=== PATIENT | female | born 1930 | race Caucasian/White ===

== ENCOUNTER 2016-08-08 13:59 | Inpatient (IN) | payer MEDICARE ==
[~2016-08-08] VITALS: Ht 157.5 cm; Wt 53.3 kg
--- NOTE | 2016-08-08 14:15 | PD ---
HPI Chief Complaint: Injury Time Seen by Provider: 14:14 Travel History International Travel<30 days: No Contact w/Intl Traveler<30days: No Traveled to known affect area: No History of Present Illness HPI 85 year old with history of dementia presents by EVAC for evaluation of dislocated R 4th digit. Per EVAC report, pt attempted to get out of her chair and fell over when her daughter left the room. EVAC reports the daughter says the pt has had frequent falls similar to this because she forgets she cannot ambulate as well as she used to. Unknown if head was struck. Pt did sustain a skin tear to the R elbow and L knee. She has dementia and does not recall the event. She cannot provide me with any history. Pt has not been here before. I do not have a contact number to get ahold of family for better understanding of the situation. PFSH Past Medical History Medical History: Unable to Obtain Social History Alcohol Use: No Tobacco Use: No Substance Use: No Allergies-Medications (Allergen,Severity, Reaction): Coded Allergies: Adhesives (Verified Allergy, Severe, skin tears, 08/08/16) skin is extremely fragile, will tear at the slightest stress Review of Systems ROS Limitations: Altered Mental Status Physical Exam Exam Limitations: Altered Mental Status Narrative GENERAL: Awake, well nourished female pt in no acute distress SKIN: Warm and dry. Multiple skin tears on extremities in different stages of healing. HEAD: Atraumatic. Normocephalic. EYES: Pupils equal and round. No scleral icterus. No injection or drainage. ENT: No nasal bleeding or discharge. Mucous membranes pink and moist. NECK: Trachea midline. No JVD. CARDIOVASCULAR: Regular rate and rhythm. RESPIRATORY: No accessory muscle use. Clear to auscultation. Breath sounds equal bilaterally. GASTROINTESTINAL: Abdomen soft, non-tender, nondistended. Hepatic and splenic margins not palpable. MUSCULOSKELETAL: Extremities without clubbing, cyanosis, or edema. Deformity of R 4th digit at the PIP. Cap refill WNL. NEUROLOGICAL: Awake and alert. Answers yes/no to simple questions intermittently. Not oriented to self, place, or time. No obvious cranial nerve deficits. Motor grossly within normal limits. Five out of 5 muscle strength in the arms and legs. Normal speech. Data Data Last Documented VS Vital Signs Date Time Temp Pulse Resp B/P Pulse Ox O2 Delivery O2 Flow Rate FiO2 08/08/16 15:00 86 22 172/90 98 Orders Finger ([id number]) (08/08/16 ) Wound Care (08/08/16 14:12) Splint Or Brace Apply/Monitor (08/08/16 14:12) Finger Splint (08/08/16 ) Ct Brain W/O Iv Contrast(Rout) (08/08/16 ) Iv Access Insert/Monitor (08/08/16 16:08) Complete Blood Count With Diff (08/08/16 16:08) Basic Metabolic Panel (Bmp) (08/08/16 16:08) Urinalysis - C+S If Indicated (08/08/16 16:08) Cath For Specimen (08/08/16 16:08) Sodium Chlor 0.9% 1000 Ml Inj (Ns 1000 M (08/08/16 17:15) Consult Neurosurgery (08/08/16 ) Nicardipine Inj (Cardene Inj) (08/08/16 17:45) Labs Laboratory Tests Test 08/08/16 16:40 White Blood Count 15.0 TH/MM3 Red Blood Count 4.59 MIL/MM3 Hemoglobin 14.1 GM/DL Hematocrit 40.1 % Mean Corpuscular Volume 87.4 FL Mean Corpuscular Hemoglobin 30.8 PG Mean Corpuscular Hemoglobin 35.2 % Concent Red Cell Distribution Width 14.1 % Platelet Count 264 TH/MM3 Mean Platelet Volume 8.3 FL Neutrophils (%) (Auto) 83.2 % Lymphocytes (%) (Auto) 8.4 % Monocytes (%) (Auto) 7.2 % Eosinophils (%) (Auto) 0.8 % Basophils (%) (Auto) 0.4 % Neutrophils # (Auto) 12.5 TH/MM3 Lymphocytes # (Auto) 1.3 TH/MM3 Monocytes # (Auto) 1.1 TH/MM3 Eosinophils # (Auto) 0.1 TH/MM3 Basophils # (Auto) 0.1 TH/MM3 CBC Comment DIFF FINAL Differential Comment Sodium Level 133 MEQ/L Potassium Level 3.7 MEQ/L Chloride Level 97 MEQ/L Carbon Dioxide Level 27.3 MEQ/L Anion Gap 9 MEQ/L Blood Urea Nitrogen 13 MG/DL Creatinine 0.57 MG/DL Estimat Glomerular Filtration 100 ML/MIN Rate Random Glucose 114 MG/DL Calcium Level 8.4 MG/DL MDM Medical Decision Making Medical Screen Exam Complete: Yes Emergency Medical Condition: Yes Medical Record Reviewed: Yes Differential Diagnosis finger dislocation vs fracture vs sprain dementia versus UTI versus electrolyte abnormality versus ICH Narrative Course 85 year old female presents to ED for evaluation of dislocated R 4th PIP following a fall from her chair per EVAC report. Pt offers no history due to advanced dementia and I have no family contact, however, EVAC reported pt does reside with her daughter. Work up is initiated in ED ambulance hallway. Finger is reduced without difficulty or complication during assessment without digital block or effort on my part. Digit is neurovascularly intact. I have called several times to ED waiting area in hopes to locate family, I have not been able to. I will move forward with complete workup as I cannot obtain adequate history. Last Impressions Finger X-Ray 08/08/16 0000 Signed Impressions: Service Date/Time: Monday, August 08, 2016 14:37 - CONCLUSION: 1. No acute fracture or dislocation. 2. 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 3. Diffuse osteopenia. Mustapha Riddle MD Laboratory Tests Test 08/08/16 16:40 White Blood Count 15.0 TH/MM3 Red Blood Count 4.59 MIL/MM3 Hemoglobin 14.1 GM/DL Hematocrit 40.1 % Mean Corpuscular Volume 87.4 FL Mean Corpuscular Hemoglobin 30.8 PG Mean Corpuscular Hemoglobin 35.2 % Concent Red Cell Distribution Width 14.1 % Platelet Count 264 TH/MM3 Mean Platelet Volume 8.3 FL Neutrophils (%) (Auto) 83.2 % Lymphocytes (%) (Auto) 8.4 % Monocytes (%) (Auto) 7.2 % Eosinophils (%) (Auto) 0.8 % Basophils (%) (Auto) 0.4 % Neutrophils # (Auto) 12.5 TH/MM3 Lymphocytes # (Auto) 1.3 TH/MM3 Monocytes # (Auto) 1.1 TH/MM3 Eosinophils # (Auto) 0.1 TH/MM3 Basophils # (Auto) 0.1 TH/MM3 CBC Comment DIFF FINAL Differential Comment Sodium Level 133 MEQ/L Potassium Level 3.7 MEQ/L Chloride Level 97 MEQ/L Carbon Dioxide Level 27.3 MEQ/L Anion Gap 9 MEQ/L Blood Urea Nitrogen 13 MG/DL Creatinine 0.57 MG/DL Estimat Glomerular Filtration 100 ML/MIN Rate Random Glucose 114 MG/DL Calcium Level 8.4 MG/DL UA is not yet collected. Ct of brain shows acute SAH. I discussed the pt with Dr. Xavier, my attending physician who has also assessed the pt. I spoke with Dr. Chris, neurosurgery bone cooking operator. She will consult on the pt. I spoke with Dr. Zhang. Pt will be admitted to the medical staff. Pt will be moved to a medical bed and placed on a cardene gtt for BP control. 2000 family is at bedside. They're very frustrated, stating they have been here all day and have been told by security repeatedly they could not come to the back or update them. I apologized as I had spoken to nursing staff multiple times since the pts arrival and they were unable to find family in the waiting room. Family informed me that the pt has been ambulatory until today. She was running down the hallway this morning when she fell. That is when she struck her head on the ground. She was then assisted up and to a chair by her daughter. The daughter says she was out in the sunroom when she heard a boom and her mother had fallen on the floor. They noticed the finger deformity and called 911 She has been unable to ambulate since the fall. Xray imaging of the pelvis has been ordered. 2129 Xray imaging shows RIGHT femoral neck fracture. I spoke with GUADALUPE Gauthier. Pt is NPO after MN for intervention tomorrow. I updated the family and Dr. Rose. Diagnosis Primary Impression: Traumatic subarachnoid hemorrhage Qualified Code: S06.6X9A - Traumatic subarachnoid hemorrhage, with loss of consciousness of unspecified duration, initial encounter Additional Impressions: Skin tear of elbow without complication Qualified Code: S51.011A - Skin tear of elbow without complication, right, initial encounter Dislocation of finger, interphalangeal joint, right, closed Qualified Code: S63.279A - Dislocation of finger, interphalangeal joint, right , closed, initial encounter Dementia Qualified Code: F03.90 - Dementia without behavioral disturbance, unspecified dementia type Disposition: 01 DISCHARGE HOME Condition: Stable JeffriesFreda couch COLLEEN Aug 08, 2016 14:15
--- NOTE | 2016-08-08 14:56 | RADRPT ---
EXAM DATE/TIME: 08/08/2016 14:37 [facility] COMPARISON: No previous studies available for comparison. INDICATIONS : Post reduction, fourth right digit. MEDICAL HISTORY : Unobtainable. SURGICAL HISTORY : Unobtainable. ENCOUNTER: Initial ACUITY: 1 day PAIN SCORE: Non-responsive. LOCATION: Right fourth digit. FINDINGS: There is no acute fracture or dislocation of the right fourth digit. Diffuse osteopenia of the bones of the right hand is noted. Osteoarthritis is noted involving the first interphalangeal joint. CONCLUSION: 1. No acute fracture or dislocation. 2. 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 3. Diffuse osteopenia. Mustapha Riddle MD on August 08, 2016 at 14:47 Board Certified Radiologist. This report was verified electronically.
[2016-08-08 15:00] VITALS: BP 172/90; PULSE 86; RESP 22; O2SAT 98
[2016-08-08 17:00] LABS: AUTOMATED NEUTROPHIL # 12.5 TH/MM3 (1.8-7.7); BASOPHIL # 0.1 TH/MM3 (0-0.2); BASOPHIL % 0.4 % (0.0-2.0); EOSINOPHIL # 0.1 TH/MM3 (0-0.4); EOSINOPHIL % 0.8 % (0.0-4.0); HEMATOCRIT 40.1 % (35.0-46.0); HEMO FLAGS DIFF FINAL; LYMPH % 8.4 % (9.0-44.0); LYMPHOCYTE # 1.3 TH/MM3 (1.0-4.8); MEAN CELL VOLUME 87.4 FL (80.0-100.0); MEAN CORPUSCULAR HEMOGLOBIN 30.8 PG (27.0-34.0); MEAN CORPUSCULAR HGB CONC 35.2 % (32.0-36.0); MONO % 7.2 % (0.0-8.0); NEUT % 83.2 % (16.0-70.0); PLATELET COUNT 264 TH/MM3 (150-450); RED BLOOD COUNT 4.59 MIL/MM3 (4.00-5.30); RED CELL DISTRIBUTION WIDTH 14.1 % (11.6-17.2)
[2016-08-08] MEDS ORDERED: SODIUM CHLOR 0.9% 1000 ML INJ 1,000 ML IV ONE (17:15)
--- NOTE | 2016-08-08 17:21 | RADRPT ---
EXAM DATE/TIME: 08/08/2016 17:09 [facility] COMPARISON: No previous studies available for comparison. INDICATIONS : Altered mental status; fall. RADIATION DOSE: 34.15 CTDIvol (mGy) MEDICAL HISTORY : Non-responsive. SURGICAL HISTORY : Non-responsive. ENCOUNTER: Initial ACUITY: 1 day PAIN SCALE: Non-responsive LOCATION: cranial TECHNIQUE: Multiple contiguous axial images were obtained of the head. Using automated exposure control and adj ustment of the mA and/or kV according to patient size, radiation dose was kept as low as reasonably a chievable to obtain optimal diagnostic quality images. FINDINGS: CEREBRUM: Minimal acute subarachnoid hemorrhage is noted within the right high parietal sulci. No midline shift or ventriculomegaly is noted. No acute infarct is noted. There is no acute subdural or epidural robert luis a. POSTERIOR FOSSA: The cerebellum and brainstem are intact. The 4th ventricle is midline. The cerebellopontine angle i s unremarkable. EXTRACRANIAL: The visualized portion of the orbits is intact. SKULL: The calvaria is intact. No evidence of skull fracture. CONCLUSION: Minimal acute subarachnoid hemorrhage within the right high parietal sulci. Mustapha Riddle MD on August 08, 2016 at 17:17 Board Certified Radiologist. This report was verified electronically.
[2016-08-08 17:25] LABS: BICARBONATE 27.3 MEQ/L (21.0-32.0); POTASSIUM 3.7 MEQ/L (3.5-5.1)
[2016-08-08 18:00] VITALS: BP 181/100; PULSE 127; RESP 16; O2SAT 95
[2016-08-08] MEDS ORDERED: SODIUM CHLORIDE 0.9% FLUSH 5 ML FLUSH IVF PRN (18:00)
[2016-08-08] MEDS ORDERED: ACETAMINOPHEN 325 MG TAB PO PRN (18:00)
[2016-08-08] MEDS ORDERED: DOCUSATE SODIUM 100 MG/10 ML UDC NG PRN (18:00)
[2016-08-08 18:08] LABS: BLOOD, URINE NEG (NEG); COMMENT (UR) CATH-CULT NOT IND; CULTURE IF INDICATED CATH CULTURE NOT IND; GLUCOSE,URINE NEG (NEG); KETONE, URINE NEG (NEG); NITRITE,URINE NEG (NEG); SQUAMOUS EPITHELIAL CELL URINE <1 /hpf (0-5); URINE COLOR LIGHT-YELLOW (YELLW/STRAW)
--- NOTE | 2016-08-08 18:14 | PD.CONS ---
HPI Service Neurosurgery Consult Requested By ED Reason for Consult Intracranial bleed Primary Care Physician not known History of Present Illness 85 year old fell at home and was found in the ED to have a small SAH in the right frontal sulci with no mass effect. She has dementia and a history of increased falling in the recent past. She lives with her daughter who sent her to the ED after a fall today. The daughter is not present and the patient's history and medications are not available. Review of Systems ROS Limitations: Hearing Impaired, Poor Historian Constitutional: DENIES: Diaphoretic episodes, Fatigue, Fever, Weight gain, Weight loss, Chills, Dizziness, Change in appetite, Night Sweats Endocrine: DENIES: Abnorml menstrual pattern, Heat/cold intolerance, Polydipsia , Polyuria, Polyphagia Eyes: DENIES: Blurred vision, Diplopia, Eye inflammation, Eye pain, Vision loss , Photosensitivity, Double Vision Respiratory: DENIES: Apneas, Cough, Snoring, Wheezing, Hemoptysis, Sputum production, Shortness of breath Cardiovascular: COMPLAINS OF: Palpitations Gastrointestinal: DENIES: Abdominal pain, Black stools, Bloody stools, Constipation, Diarrhea, Nausea, Vomiting, Difficulty Swallowing, Anorexia Genitourinary: DENIES: Abnormal vaginal bleeding, Dysmenorrhea, Dyspareunia, Sexual dysfunction, Urinary frequency, Urinary incontinence, Urgency, Hematuria , Dysuria, Nocturia, Vaginal discharge Musculoskeletal: DENIES: Joint pain, Muscle aches, Stiffness, Joint Swelling, Back pain, Neck pain Integumentary: DENIES: Abnormal pigmentation, Pruritus, Rash, Nail changes, Breast masses, Breast skin changes, Nipple discharge Hematologic/lymphatic: COMPLAINS OF: Bruising Immunologic/allergic: DENIES: Eczema, Urticaria Neurologic: COMPLAINS OF: Tremor, Poor Balance Psychiatric: COMPLAINS OF: Confusion Past Family Social History Allergies: Coded Allergies: UNOBTAINABLE (Unverified , 08/08/16) Past Medical History not known Family History not known Social History lives with daughter. Physical Exam Vital Signs Vital Signs Date Time Temp Pulse Resp B/P Pulse Ox O2 Delivery O2 Flow Rate FiO2 08/08/16 15:00 86 22 172/90 98 Physical Exam Awake pleasant lady who looks younger than her stated age, Head atraumatic with no racoon or bourgeois signs but she has multiple skin abrasions and bruising in the elbows, lower legs. Pupils post surgical 2mm equal, eye movements are grossly full, she is unable to follow simple or complex commands but is able to say simple words. She has no pain with palpation and motion of the neck and back Abrasions are present on the buttock and right hip areas. Tone is increased throughout but she has no delgado or babinski signs. Motor use of all extremities is antigravity and purposeful, sensation is present in all extremities. Lungs are clear with no wheezing or rhonchi, Abdomen is soft, non tender, Heart rate is irregular. Laboratory Laboratory Tests Test 08/08/16 16:40 White Blood Count 15.0 Red Blood Count 4.59 Hemoglobin 14.1 Hematocrit 40.1 Mean Corpuscular Volume 87.4 Mean Corpuscular Hemoglobin 30.8 Mean Corpuscular Hemoglobin 35.2 Concent Red Cell Distribution Width 14.1 Platelet Count 264 Mean Platelet Volume 8.3 Neutrophils (%) (Auto) 83.2 Lymphocytes (%) (Auto) 8.4 Monocytes (%) (Auto) 7.2 Eosinophils (%) (Auto) 0.8 Basophils (%) (Auto) 0.4 Neutrophils # (Auto) 12.5 Lymphocytes # (Auto) 1.3 Monocytes # (Auto) 1.1 Eosinophils # (Auto) 0.1 Basophils # (Auto) 0.1 CBC Comment DIFF FINAL Differential Comment Sodium Level 133 Potassium Level 3.7 Chloride Level 97 Carbon Dioxide Level 27.3 Anion Gap 9 Blood Urea Nitrogen 13 Creatinine 0.57 Estimat Glomerular Filtration 100 Rate Random Glucose 114 Calcium Level 8.4 Result Diagram: 08/08/16 1640 08/08/16 1640 Imaging Last Impressions Finger X-Ray 08/08/16 0000 Signed Impressions: Service Date/Time: Monday, August 08, 2016 14:37 - CONCLUSION: 1. No acute fracture or dislocation. 2. 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 3. Diffuse osteopenia. Mustapha Riddle MD Head CT shows trace SAH in the sulci of the frontal lobe on the right with no mass effect. No fractures are seen Assessment and Plan Diagnosis: (1) Dementia (2) Traumatic subarachnoid hemorrhage Plan: Follow up head CT and neuro checks ordered. (3) Hyponatremia Plan: Mild, will provide sodium replacement with IVF and avoid hypovolemia (4) Atrial fibrillation Plan: Anticoagulation will be on hold until the bleed has resolved (5) HTN (hypertension) Plan: will control with prn medications until home medications are available (6) Balance disorder Plan: OT/PT to evaluate the safety of gait prior to home discharge Problem Qualifiers (1) Dementia: Qualified Code: F03.90 - Dementia without behavioral disturbance, unspecified dementia type (2) Traumatic subarachnoid hemorrhage: Qualified Code: S06.6X9A - Traumatic subarachnoid hemorrhage, with loss of consciousness of unspecified duration, initial encounter (3) Atrial fibrillation: Qualified Code: I48.91 - Atrial fibrillation, unspecified type (4) HTN (hypertension): Qualified Code: I15.9 - Secondary hypertension Johnson Chris Aug 08, 2016 18:14
--- NOTE | 2016-08-08 18:18 | PD ---
Physical Exam Narrative GENERAL: Well-nourished, well-developed patient. SKIN: Warm and dry. HEAD: Normocephalic EYES: No injection or drainage. Pupils equal ENT: No nasal drainage noted. NECK: Supple, trachea midline. CARDIOVASCULAR: Regular rate and rhythm RESPIRATORY: No increased effort. No accessory muscle use. NEUROLOGICAL: Awake. Moves all extremities. Normal speech. Data Data Last Documented VS Vital Signs Date Time Temp Pulse Resp B/P Pulse Ox O2 Delivery O2 Flow Rate FiO2 08/08/16 15:00 86 22 172/90 98 Orders Finger ([id number]) (08/08/16 ) Wound Care (08/08/16 14:12) Splint Or Brace Apply/Monitor (08/08/16 14:12) Finger Splint (08/08/16 ) Ct Brain W/O Iv Contrast(Rout) (08/08/16 ) Iv Access Insert/Monitor (08/08/16 16:08) Complete Blood Count With Diff (08/08/16 16:08) Basic Metabolic Panel (Bmp) (08/08/16 16:08) Urinalysis - C+S If Indicated (08/08/16 16:08) Cath For Specimen (08/08/16 16:08) Sodium Chlor 0.9% 1000 Ml Inj (Ns 1000 M (08/08/16 17:15) Consult Neurosurgery (08/08/16 ) Nicardipine Inj (Cardene Inj) (08/08/16 17:45) Labs Laboratory Tests Test 08/08/16 16:40 White Blood Count 15.0 TH/MM3 Red Blood Count 4.59 MIL/MM3 Hemoglobin 14.1 GM/DL Hematocrit 40.1 % Mean Corpuscular Volume 87.4 FL Mean Corpuscular Hemoglobin 30.8 PG Mean Corpuscular Hemoglobin 35.2 % Concent Red Cell Distribution Width 14.1 % Platelet Count 264 TH/MM3 Mean Platelet Volume 8.3 FL Neutrophils (%) (Auto) 83.2 % Lymphocytes (%) (Auto) 8.4 % Monocytes (%) (Auto) 7.2 % Eosinophils (%) (Auto) 0.8 % Basophils (%) (Auto) 0.4 % Neutrophils # (Auto) 12.5 TH/MM3 Lymphocytes # (Auto) 1.3 TH/MM3 Monocytes # (Auto) 1.1 TH/MM3 Eosinophils # (Auto) 0.1 TH/MM3 Basophils # (Auto) 0.1 TH/MM3 CBC Comment DIFF FINAL Differential Comment Sodium Level 133 MEQ/L Potassium Level 3.7 MEQ/L Chloride Level 97 MEQ/L Carbon Dioxide Level 27.3 MEQ/L Anion Gap 9 MEQ/L Blood Urea Nitrogen 13 MG/DL Creatinine 0.57 MG/DL Estimat Glomerular Filtration 100 ML/MIN Rate Random Glucose 114 MG/DL Calcium Level 8.4 MG/DL [facility] Supervised Visit with MICK: Yes Interpretation(s) CBC & BMP Diagram 08/08/16 16:40 Last 24 hours Impressions Finger X-Ray 08/08/16 0000 Signed Impressions: Service Date/Time: Monday, August 08, 2016 14:37 - CONCLUSION: 1. No acute fracture or dislocation. 2. 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 3. Diffuse osteopenia. Mustapha Riddle MD CT brain with small amount of subarachnoid hemorrhage noted Narrative Course I, Dr. vila, have reviewed the advance practice practitioner's documentation and am in agreement, met with the patient face to face, made the diagnosis, and the medical decision making was done by me. *My assessment and Findings: 85-year-old female presents with finger dislocation with unknown mechanism. Workup added on to rule out how she fell and showed subarachnoid hemorrhage. Cardene will be placed for blood pressure control and she will be monitored in the unit. I helped coordinate transferring into a medical room to be monitored closely and have blood pressure under better control Critical Care Narrative Aggregate critical care time was 31 minutes. Time to perform other separately billable procedures was not included in the critical care time. My time did not include minutes spent treating any other patients simultaneously or on activities that did not directly contribute to the patient's treatment. The services I provided to this patient were to treat and/or prevent clinically significant deterioration that could result in: Hypertensive emergency, worsening bleeding I provided critical care services requiring my management, as noted below: Chart data review, documentation time, medication orders and management, vital sign assessments/reviewing monitor data, ordering and reviewing lab tests, ordering and interpreting/reviewing x-rays and diagnostic studies, care of the patient and discussion of the patient with the admitting physicians. Physician Communication Physician Communication dr huertas agrees to admit, neurosurgery saw patient in hallway Diagnosis Primary Impression: Traumatic subarachnoid hemorrhage Additional Impressions: Skin tear of elbow without complication Qualified Code: S51.011A - Skin tear of elbow without complication, right, initial encounter Dislocation of finger, interphalangeal joint, right, closed Qualified Code: S63.279A - Dislocation of finger, interphalangeal joint, right , closed, initial encounter Admitting Information Admitting Physician Requests: Admit Lashon Vila MD Aug 08, 2016 18:18
[2016-08-08] MEDS: niCARdipine INJ 25 MG in SODIUM CHLOR 0.9% 250 ML INJ 250 ML IV SCH (18:23)
[2016-08-08] MEDS ORDERED: NALOXONE HCL 0.4 MG/ML AMP IV PRN (18:30)
[2016-08-08] MEDS ORDERED: SODIUM CHLORIDE 0.9% FLUSH 5 ML FLUSH FLUSH PRN (18:30)
[2016-08-08] MEDS ORDERED: ONDANSETRON HCL 4 MG/2 ML VIAL IVP PRN (18:30)
[2016-08-08 18:32] VITALS: BP 172/77; PULSE 136; RESP 18; O2SAT 95
[2016-08-08] MEDS ORDERED: PILL SPLITTER OTHER PRN (18:45)
[2016-08-08 19:01] VITALS: BP 145/84; PULSE 125; RESP 18; O2SAT 95
[2016-08-08] MEDS: SODIUM CHLOR 0.9% 1000 ML INJ 1,000 ML IV SCH (20:09)
[2016-08-08 20:35] LABS: PROTHROMBIN TIME - PATIENT 11.4 SEC (9.8-11.6)
[2016-08-08] MEDS ORDERED: SODIUM CHLORIDE 0.9% FLUSH 5 ML FLUSH IVF SCH (21:00)
[2016-08-08] MEDS: SODIUM CHLORIDE 0.9% FLUSH 5 ML FLUSH FLUSH SCH (21:00)
[2016-08-08] MEDS: METOPROLOL TARTRATE 25 MG TAB PO SCH (21:00)
--- NOTE | 2016-08-08 21:22 | RADRPT ---
EXAM DATE/TIME: 08/08/2016 20:34 [facility] COMPARISON: No previous studies available for comparison. INDICATIONS : Fall. MEDICAL HISTORY : None. SURGICAL HISTORY : None. ENCOUNTER: Initial ACUITY: 1 day PAIN SCORE: 9/10 LOCATION: Bilateral pelvis FINDINGS: A single frontal view of the pelvis demonstrates right femoral neck fracture with superior migration of the distal right femur. Mild degenerative changes of both hips. The bony pelvic ring is intact. Bony mineralization is normal. The soft tissues are intact. CONCLUSION: 1. Right femoral neck fracture with superior migration of the distal shaft. Yon Bailey MD on August 08, 2016 at 21:20 Board Certified Radiologist. This report was verified electronically.
--- NOTE | 2016-08-08 21:22 | RADRPT ---
EXAM DATE/TIME: 08/08/2016 20:35 [facility] COMPARISON: No previous studies available for comparison. INDICATIONS : Fall. MEDICAL HISTORY : None. SURGICAL HISTORY : None. ENCOUNTER: Initial ACUITY: 1 day PAIN SCORE: 9/10 LOCATION: Left femur FINDINGS: Two view examination of the left femur demonstrates no evidence of fracture or dislocation. Bony min eralization is normal. The soft tissue structures are intact. CONCLUSION: No acute fracture. Yon Bailey MD on August 08, 2016 at 21:21 Board Certified Radiologist. This report was verified electronically.
--- NOTE | 2016-08-08 21:23 | RADRPT ---
EXAM DATE/TIME: 08/08/2016 20:35 [facility] COMPARISON: No previous studies available for comparison. INDICATIONS : Chest pain. MEDICAL HISTORY : None. SURGICAL HISTORY : None. ENCOUNTER: Initial ACUITY: 1 day PAIN SCORE: 9/10 LOCATION: Bilateral chest FINDINGS: A single view of the chest demonstrates scattered interstitial densities without evidence of mass, in filtrate or effusion. The cardiomediastinal contours are unremarkable. Osseous structures are intac t. A left clavicle fracture. CONCLUSION: Scattered interstitial densities likely chronic interstitial lung disease although acute component ca nnot be excluded given lack of prior studies. Yon Bailey MD on August 08, 2016 at 21:21 Board Certified Radiologist. This report was verified electronically.
--- NOTE | 2016-08-08 21:24 | RADRPT ---
EXAM DATE/TIME: 08/08/2016 20:38 [facility] COMPARISON: No previous studies available for comparison. INDICATIONS : Fall. MEDICAL HISTORY : None. SURGICAL HISTORY : None. ENCOUNTER: Initial ACUITY: 1 day PAIN SCORE: 9/10 LOCATION: Right femur FINDINGS: Two view examination of the right femur demonstrates a displaced right femoral neck fracture. There i s superior migration of the distal shaft. Vascular calcifications. Soft tissue swelling. CONCLUSION: Right femoral neck fracture. Yon Bailey MD on August 08, 2016 at 21:22 Board Certified Radiologist. This report was verified electronically.
[2016-08-08 21:42] VITALS: BP 110/63; PULSE 119; RESP 18; O2SAT 97
--- NOTE | 2016-08-08 22:02 | HHI.HP ---
[facility] Service [facility] Primary Care Physician Unknown Admission Diagnosis SAH; dementia; R4th finger PIP dislocation/reduction Diagnoses: (1) Fracture of femoral neck, right, closed (2) Traumatic subarachnoid hemorrhage (3) Dislocation of finger, interphalangeal joint, right, closed (4) Skin tear of elbow without complication (5) Dementia Chief Complaint: finger deformity following fall Travel History International Travel<30 Days: No Contact w/Intl Traveler <30 Da: No Traveled to Known Affected Are: No History of Present Illness Ms. Jimenez is an 85 -year-old female with a history of dementia who was attempting to get out of her chair when daughter was out of the room and fell over her dislocating her right fourth digit. The patient has had frequent falls because she forgets that she is unable to ambulate as well as she used to. Finger fracture was manually reduced in ER. CT of brain showed acute minimal right high parietal sulci hemorrhage with no mass effect and the patient is admitted for medical management. UA within normal parameters. WBC elevated 15.0 with neutrophilia. Hyponatremia with sodium 133 on admission. The patient had a pelvis and right femur x-ray that showed right femoral neck fracture. Dr. Peters was consulted. Patient will be NPO and will have ORIF in a.m. The patient was seen in the ER with her daughter and son-in-law at bedside. The patient is a poor historian and replies "no" to all questions. The patient's daughter says the patient ran down jacobo to find her and fell while running; head "bounced" off the floor. The patient's legs gave out when her daughter tried to transfer to a chair after the fall. She got up in interim and got finger caught between chairs with severe and obvious resulting deformity. The family is here from [place] (they have two homes; one in [place] and one in [place] - usually here until October). The daughter states the patient has severe insomnia - sleeps about 1 - 2 hours per night and takes Ativan 0.25 mg qhs, citalopram 5mg qhs to promote sleep but it only helps her sleep the 1-2 hours. If she takes higher doses of Ativan, she 's lethargic the next day. The patient doesn't complain about anything and has mostly been pretty healthy other than the dementia; no diarrhea, no n/v; good appetite but has lost some weight despite adequate p.o. intake. Daughter denies that the patient has a history of diabetes, CT, CHF, atrial fibrillation, liver or kidney, DVT, PE, CVA, seizures, cancer, or thyroid problems. Functional status: Toilets self independently - occasional incontinence - patient cleans herself independently if this occurs; eats with set-up assistance; regular consistency food; ambulates independently. Review of Systems ROS Limitations: Poor Historian Other all systems were reviewed; pertinent findings are noted in HPI and otherwise systems are negative . Past Family Social History Past Medical History Hypertension Dementia Anxiety Insomnia Past Surgical History skin lesions removed ingrown toenail removal no major surgeries . Reported Medications Lorazepam 0.25 mg qhs Citalopram 5 mg qhs Tylenol PM one tablet PRN insomnia Lisinopril 10 mg qday Keflex 250 mg once daily for UTI prophylaxis . Allergies: Coded Allergies: Adhesives (Verified Allergy, Severe, skin tears, 08/08/16) skin is extremely fragile, will tear at the slightest stress Active Ordered Medications Current Medications Sodium Chloride 1,000 ml @ 999 mls/hr BOLUS ONCE IV Last administered on 08/08 18:27; Start 08/08/16 at 17:15; Stop 08/08/16 at 18:15; Status DC Nicardipine HCl 25 mg/Sodium Chloride 260 ml @ 0 mls/hr TITRATE IV Last administered on 08/08/16 18:23; Start 08/08/16 at 17:45 Sodium Chloride (NS 1000 ml Inj) 1,000 ml @ 70 mls/hr [id number] IV Last administered on 08/08/16 20:09; Start 08/08/16 at 18:00 IV Flush (NS Flush) 2 ml UNSCH PRN IVF FLUSH AFTER USING IV ACCESS; Start 08/08 at 18:00; Stop 08/08/16 at 18:34; Status DC IV Flush (NS Flush) 2 ml BID IVF ; Start 08/08/16 at 21:00; Stop 08/08/16 at 21: 00; Status DC Clonidine (Catapres) 0.1 mg Q6H PRN PO to keep SBP between 140-160; Start 08/08 at 18:00 Acetaminophen (Tylenol) 650 mg Q4H PRN PO PAIN SCALE 1 TO 10; Start 08/08/16 at 18:00 Docusate Sodium (Colace Liq) 100 mg BID PRN NG CONSTIPATION; Start 08/08/16 at 18:00 Magnesium Hydroxide (Milk Of Magnesia Liq) 30 ml DAILY PRN PO Severe Constipation; Start 08/08/16 at 18:00 Metoprolol Tartrate (Lopressor) 12.5 mg Q12HR PO ; Start 08/08/16 at 21:00 IV Flush (NS Flush) 2 ml UNSCH PRN FLUSH FLUSH AFTER USING IV ACCESS; Start 06/14 at 18:30 IV Flush (NS Flush) 2 ml BID FLUSH ; Start 08/08/16 at 21:00 Ondansetron HCl (Zofran Inj) 4 mg Q6H PRN IVP NAUSEA OR VOMITING; Start at 18:30 Naloxone HCl (Narcan Inj) 0.4 mg UNSCH PRN IV SEE LABEL COMMENTS; Start at 18:30 Miscellaneous (Pill Splitter) 1 ea UNSCH PRN OTHER SEE LABEL COMMENTS; Start at 18:45 . Family History Sister with respiratory disorder No family history of anesthesia problems . Social History Tobacco: smoked more than 30 years ago Alcohol: no history of abuse Lives with daughter and son-in-law; has two sons . Physical Exam Vital Signs Vital Signs Date Time Temp Pulse Resp B/P Pulse Ox O2 Delivery O2 Flow Rate FiO2 08/08/16 19:01 125 18 145/84 95 Room Air 08/08/16 18:32 136 18 172/77 95 Room Air 08/08/16 18:00 127 16 181/100 95 Room Air 08/08/16 15:00 86 22 172/90 98 Physical Exam GENERAL: This is a well-nourished, well-developed patient, in no apparent distress. SKIN: No rashes, ecchymoses. Cool and dry. Very large skin tear to near right elbow; no active bleeding. Right hip with some bruising but fracture is closed. Bruising on left marcial area. HEAD: Atraumatic. Normocephalic. EYES: No scleral icterus. No injection or drainage. ENT: Nose without bleeding, purulent drainage. NECK: Trachea midline. No JVD or lymphadenopathy. CARDIOVASCULAR: Regular rate and rhythm without murmurs, gallops, or rubs. RESPIRATORY: Clear to auscultation. Breath sounds equal bilaterally. No wheezes , rales, or rhonchi. GASTROINTESTINAL: Abdomen soft, non-tender, nondistended. No guarding. MUSCULOSKELETAL: Extremities without clubbing, cyanosis, or edema. No calf tenderness. NEUROLOGICAL: Awake and alert but very confused. Normal speech. . Laboratory Laboratory Tests Test 08/08/16 08/08/16 08/08/16 16:40 17:40 19:30 White Blood Count 15.0 Red Blood Count 4.59 Hemoglobin 14.1 Hematocrit 40.1 Mean Corpuscular Volume 87.4 Mean Corpuscular Hemoglobin 30.8 Mean Corpuscular Hemoglobin 35.2 Concent Red Cell Distribution Width 14.1 Platelet Count 264 Mean Platelet Volume 8.3 Neutrophils (%) (Auto) 83.2 Lymphocytes (%) (Auto) 8.4 Monocytes (%) (Auto) 7.2 Eosinophils (%) (Auto) 0.8 Basophils (%) (Auto) 0.4 Neutrophils # (Auto) 12.5 Lymphocytes # (Auto) 1.3 Monocytes # (Auto) 1.1 Eosinophils # (Auto) 0.1 Basophils # (Auto) 0.1 CBC Comment DIFF FINAL Differential Comment Sodium Level 133 Potassium Level 3.7 Chloride Level 97 Carbon Dioxide Level 27.3 Anion Gap 9 Blood Urea Nitrogen 13 Creatinine 0.57 Estimat Glomerular Filtration 100 Rate Random Glucose 114 Calcium Level 8.4 Urine Color LIGHT-YELLOW Urine Turbidity CLEAR Urine pH 7.0 Urine Specific [place] 1.010 Urine Protein NEG Urine Glucose (UA) NEG Urine Ketones NEG Urine Occult Blood NEG Urine Nitrite NEG Urine Bilirubin NEG Urine Urobilinogen LESS THAN 2.0 Urine Leukocyte Esterase NEG Urine RBC 1 Urine WBC LESS THAN 1 Urine Squamous Epithelial <1 Cells Microscopic Urinalysis Comment CATH-CULT NOT IND Prothrombin Time 11.4 Prothromb Time International 1.0 Ratio Result Diagram: 08/08/16 1640 08/08/16 1640 Imaging Last Impressions Pelvis X-Ray 08/08/16 0000 Signed Impressions: Service Date/Time: Monday, August 08, 2016 20:34 - CONCLUSION: 1. Right femoral neck fracture with superior migration of the distal shaft. Yon Bailey MD Head CT 08/08/16 0000 Signed Impressions: Service Date/Time: Monday, August 08, 2016 17:09 - CONCLUSION: Minimal acute subarachnoid hemorrhage within the right high parietal sulci. Mustapha Riddle MD Finger X-Ray 08/08/16 0000 Signed Impressions: Service Date/Time: Monday, August 08, 2016 14:37 - CONCLUSION: 1. No acute fracture or dislocation. 2. 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 3. Diffuse osteopenia. Mustapha Riddle MD Femur X-Ray 08/08/16 0000 Signed Impressions: Service Date/Time: Monday, August 08, 2016 20:35 - CONCLUSION: No acute fracture. Yon Bailey MD Chest X-Ray 08/08/16 0000 Signed Impressions: Service Date/Time: Monday, August 08, 2016 20:35 - CONCLUSION: Scattered interstitial densities likely chronic interstitial lung disease although acute component cannot be excluded given lack of prior studies. Yon Bailey MD Assessment and Plan Problem List: (1) Fracture of femoral neck, right, closed ICD Code: S72.001A Status: Acute (2) Traumatic subarachnoid hemorrhage ICD Code: S06.6X9A Status: Acute (3) Dislocation of finger, interphalangeal joint, right, closed ICD Code: S63.279A Status: Acute (4) Skin tear of elbow without complication ICD Code: S51.019A Status: Acute (5) Dementia ICD Code: F03.90 Status: Acute Assessment and Plan Acute minimal right high parietal sulci hemorrhage with no mass effect - patient was evaluated by neurosurgeon Dr. Chris - surgical intervention not recommended at this time - VS q4h - Bedrest - Neurochecks qh Right femoral neck fracture - Dr. Peters consulted - NPO except medications - for ORIF in a.m. Hypertension - Patient on cardene drip for bp control - Continuous cardiac telemetry Leukocytosis - Initial WBC 15.0 with neutrophilia - Possibly stress response no source of infection noted - Recheck in a.m. and follow trends Hyponatremia - Sodium 133 on admission - NS at 70 cc/hr - Recheck bmp in a.m. and follow trends in sodium level Right 4th finger with dislocation vs sprain - per ER record, reduced manually without difficultly - Finger x-ray with no acute fracture or dislocation; osteoarthritis involving right 1st IP joint. Diffuse osteopenia. Right forearm near elbow with large skin tear - consult wound care nurse for recommendations- family requests no adhesives in management DVT prophylaxis - SCDs - Chemoprophylaxis contraindicated due to ICH Written by Sima Falcon, acting as scribe for Dr. Rose on 08/08/16 at 21:35. The documentation accurately reflects the work performed [id number] by me on at 2135 Discussed Condition With Patient's family, RN, and ER NETWORK OPERATIONS MANAGER . Physician Certification 2 Midnight Certification Type: Admission for Inpatient Services Order for Inpatient Services The services are ordered in accordance with Medicare regulations or non- Medicare payer requirements, as applicable. In the case of services not specified as inpatient-only, they are appropriately provided as inpatient services in accordance with the 2-midnight benchmark. Estimated LOS (days): 3 days is the estimated time the patient will need to remain in the hospital, assuming treatment plan goals are met and no additional complications. Post-Hospital Plan: Not yet determined Problem Qualifiers (1) Traumatic subarachnoid hemorrhage: Qualified Code: S06.6X9A - Traumatic subarachnoid hemorrhage, with loss of consciousness of unspecified duration, initial encounter (2) Dislocation of finger, interphalangeal joint, right, closed: Qualified Code: S63.279A - Dislocation of finger, interphalangeal joint, right , closed, initial encounter (3) Skin tear of elbow without complication: Qualified Code: S51.011A - Skin tear of elbow without complication, right, initial encounter (4) Dementia: Qualified Code: F03.90 - Dementia without behavioral disturbance, unspecified dementia type Sima Falcon Aug 08, 2016 22:02 Keven Rose MD Aug 09, 2016 08:34
[2016-08-08] MEDS ORDERED: CEPH250C PO (22:23)
[2016-08-08] MEDS ORDERED: LORA-373 PO (22:23)
[2016-08-08] MEDS ORDERED: ESCI10TA PO (22:23)
[2016-08-08] MEDS ORDERED: [UNRECOGNIZED DRUG - OTHER] (22:23)
[2016-08-08] MEDS ORDERED: LISI10TA3 PO (22:23)
[2016-08-08] MEDS: cloNIDine HCL 0.1 MG TAB PO PRN (23:29)
--- NOTE | 2016-08-08 23:43 | PD.CONS ---
[facility] Service Critical Care Medicine Consult Requested By [facility] Reason for Consult Multiple Trauma Primary Care Physician Unknown History of Present Illness 85 y/o woman fell and sustained significant blunt force trauma to right side - head, elbow, hip. 1. Small traumatic SAH, no cerebral contusion or mass effect. 2. Right femoral neck fracture, markedly displaced. 3. Dislocation 4th finger right hand, PIP joint. 4. Skin evulsion right arm. Review of Systems ROS Moderate dementia but no complaints. Past Family Social History Allergies: Coded Allergies: Adhesives (Verified Allergy, Severe, skin tears, 08/08/16) skin is extremely fragile, will tear at the slightest stress Past Medical History 1. Dementia. Reported Medications Lisinopril 10 daily Physical Exam Vital Signs Vital Signs Date Time Temp Pulse Resp B/P Pulse Ox O2 Delivery O2 Flow Rate FiO2 08/08/16 21:42 119 18 110/63 97 Room Air 08/08/16 19:01 125 18 145/84 95 Room Air 08/08/16 18:32 136 18 172/77 95 Room Air 08/08/16 18:00 127 16 181/100 95 Room Air 08/08/16 15:00 86 22 172/90 98 Physical Exam Gen: Awake, alert elderly woman Head: Normal. Neck: Supple, airway widely patent. No obstruction to breathing. Lungs: Clear, no wheezes or crackles. Comfortable respiratory pattern. Heart: NL S1S2, RRR. No JVD. Abdomen: Soft, nondistended. No tenderness. BS active. Extremities: Tender right hip. Warm, and well perfused feet and hands. Neuro: EOMs, pupils normal. Moves feet and fingers to command. Very slow response time to questions. Laboratory Laboratory Tests Test 08/08/16 08/08/16 08/08/16 16:40 17:40 19:30 White Blood Count 15.0 Red Blood Count 4.59 Hemoglobin 14.1 Hematocrit 40.1 Mean Corpuscular Volume 87.4 Mean Corpuscular Hemoglobin 30.8 Mean Corpuscular Hemoglobin 35.2 Concent Red Cell Distribution Width 14.1 Platelet Count 264 Mean Platelet Volume 8.3 Neutrophils (%) (Auto) 83.2 Lymphocytes (%) (Auto) 8.4 Monocytes (%) (Auto) 7.2 Eosinophils (%) (Auto) 0.8 Basophils (%) (Auto) 0.4 Neutrophils # (Auto) 12.5 Lymphocytes # (Auto) 1.3 Monocytes # (Auto) 1.1 Eosinophils # (Auto) 0.1 Basophils # (Auto) 0.1 CBC Comment DIFF FINAL Differential Comment Sodium Level 133 Potassium Level 3.7 Chloride Level 97 Carbon Dioxide Level 27.3 Anion Gap 9 Blood Urea Nitrogen 13 Creatinine 0.57 Estimat Glomerular Filtration 100 Rate Random Glucose 114 Calcium Level 8.4 Urine Color LIGHT-YELLOW Urine Turbidity CLEAR Urine pH 7.0 Urine Specific [place] 1.010 Urine Protein NEG Urine Glucose (UA) NEG Urine Ketones NEG Urine Occult Blood NEG Urine Nitrite NEG Urine Bilirubin NEG Urine Urobilinogen LESS THAN 2.0 Urine Leukocyte Esterase NEG Urine RBC 1 Urine WBC LESS THAN 1 Urine Squamous Epithelial <1 Cells Microscopic Urinalysis Comment CATH-CULT NOT IND Prothrombin Time 11.4 Prothromb Time International 1.0 Ratio Result Diagram: 08/08/16 1640 08/08/16 1640 Assessment and Plan Assessment and Plan Assessment: 1. Small traumatic SAH, no cerebral contusion or mass effect. 2. Right femoral neck fracture, markedly displaced. 3. Dislocation finger right hand. 4. Skin avulsion right arm, partial thickness. Plan: 1. Bed rest. 2. Ortho bowel regimen. 3. Pepcid. 4. Serial neurological exams. 5. Hold chemical DVT Px due to SAH. 6. Ortho consult. Overall impression: Multiple injuries from fall earlier today. Stable hemodynamic and respiratory function. Will require ORIF right hip and early mobilization. SAH is minimal and unlikely to cause any problems. Reasonable candidate for hip surgery anytime. Sammy Bear MD Aug 08, 2016 23:43
[2016-08-09] VITALS (13 sets, daily range): BP systolic 104–189; BP diastolic 52–86; PULSE 84–114; RESP 20–25; TEMP 97.6–98.6; O2SAT 94–99
[2016-08-09 04:08] LABS: AUTOMATED NEUTROPHIL # 9.7 TH/MM3 (1.8-7.7); BASOPHIL # 0.1 TH/MM3 (0-0.2); BASOPHIL % 0.7 % (0.0-2.0); EOSINOPHIL # 0.2 TH/MM3 (0-0.4); EOSINOPHIL % 1.8 % (0.0-4.0); HEMATOCRIT 38.6 % (35.0-46.0); HEMO FLAGS DIFF FINAL; LYMPH % 9.5 % (9.0-44.0); LYMPHOCYTE # 1.2 TH/MM3 (1.0-4.8); MEAN CELL VOLUME 88.1 FL (80.0-100.0); MEAN CORPUSCULAR HEMOGLOBIN 29.8 PG (27.0-34.0); MEAN CORPUSCULAR HGB CONC 33.8 % (32.0-36.0); MONO % 7.7 % (0.0-8.0); NEUT % 80.3 % (16.0-70.0); PLATELET COUNT 242 TH/MM3 (150-450); RED BLOOD COUNT 4.38 MIL/MM3 (4.00-5.30); RED CELL DISTRIBUTION WIDTH 13.8 % (11.6-17.2); WHITE BLOOD COUNT 12.1 TH/MM3 (4.0-11.0)
[2016-08-09 04:10] LABS: PROTHROMBIN TIME - PATIENT 10.8 SEC (9.8-11.6)
[2016-08-09 04:25] LABS: BICARBONATE 27.3 MEQ/L (21.0-32.0); POTASSIUM 3.4 MEQ/L (3.5-5.1)
--- NOTE | 2016-08-09 05:54 | RADRPT ---
EXAM DATE/TIME: 08/09/2016 05:22 [place] COMPARISON: CT BRAIN W/O CONTRAST, August 08, 2016, 17:09. INDICATIONS : Follow up hemorrhage. RADIATION DOSE: 63.98 CTDIvol (mGy) MEDICAL HISTORY : Non-responsive. SURGICAL HISTORY : Non-responsive. ENCOUNTER: Subsequent ACUITY: 1 day PAIN SCALE: Non-responsive LOCATION: cranial TECHNIQUE: Multiple contiguous axial images were obtained of the head. Using automated exposure control and adj ustment of the mA and/or kV according to patient size, radiation dose was kept as low as reasonably a chievable to obtain optimal diagnostic quality images. FINDINGS: CEREBRUM: Minimal subarachnoid hemorrhage right parietal convexity. The ventricles are normal for age. No evid ence of midline shift, mass lesion, or acute infarction. No extra-axial fluid collections are seen. POSTERIOR FOSSA: The cerebellum and brainstem are intact. The 4th ventricle is midline. The cerebellopontine angle i s unremarkable. EXTRACRANIAL: The visualized portion of the orbits is intact. SKULL: The calvaria is intact. No evidence of skull fracture. CONCLUSION: Stable minimal subarachnoid hemorrhage right parietal convexity. Yon Bailey MD on August 09, 2016 at 5:52 Board Certified Radiologist. This report was verified electronically.
--- NOTE | 2016-08-09 07:24 | PD.ORT.PN ---
Subjective Subjective Remarks s/p fall. right hip pain. dementia. does not communicate. daughter at bedside. Objective Vitals Vital Signs Date Time Temp Pulse Resp B/P Pulse Ox O2 Delivery O2 Flow Rate FiO2 08/09/16 06:00 105 08/09/16 04:00 100 08/09/16 04:00 98.6 97 24 124/57 99 08/09/16 00:00 98.4 103 25 104/52 96 08/09/16 00:00 107 08/09/16 00:00 96 Room Air 08/08/16 21:42 119 18 110/63 97 Room Air 08/08/16 19:01 125 18 145/84 95 Room Air 08/08/16 18:32 136 18 172/77 95 Room Air 08/08/16 18:00 127 16 181/100 95 Room Air 08/08/16 15:00 86 22 172/90 98 I/O 08/08/16 08/08/16 08/08/16 08/09/16 08/09/16 08/09/16 07:00 15:00 23:00 07:00 15:00 23:00 Intake Total 891 ml Output Total 1000 ml Balance -109 ml Intake IV Total 891 ml Output Urine Total 1000 ml # Bowel Movements 1 Result Diagram: 08/09/16 0320 08/09/16 0320 Other Results Laboratory Tests Test 08/08/16 08/09/16 19:30 03:20 Prothrombin Time 11.4 SEC 10.8 SEC (9.8-11.6) (9.8-11.6) Prothromb Time International 1.0 RATIO 1.0 RATIO Ratio Imaging Last [address] 08/09/16 0600 Signed Impressions: Service Date/Time: July 05:22 - CONCLUSION: Stable minimal subarachnoid hemorrhage right parietal convexity. Yon Bailey MD Objective Remarks RLE: hip flexed. nvi distally. no pain with movement. Assessment & Plan Assessment and Plan 1) Right Femoral Neck Fx -consents -possible surgery today for bipolar hemiarthroplasty Abrahan Brady Aug 09, 2016 07:24
[2016-08-09] MEDS: ESCITALOPRAM OXALATE 10 MG TAB PO SCH ×3 (08:09→19:45)
[2016-08-09] MEDS: SODIUM CHLORIDE 0.9% FLUSH 5 ML FLUSH FLUSH SCH ×2 (08:09→21:00)
[2016-08-09] MEDS: LISINOPRIL 10 MG TAB PO SCH (08:09)
[2016-08-09] MEDS: METOPROLOL TARTRATE 25 MG TAB PO SCH ×2 (08:09→19:45)
[2016-08-09] MEDS: SODIUM CHLOR 0.9% 1000 ML INJ 1,000 ML IV SCH ×2 (08:10→19:46)
--- NOTE | 2016-08-09 08:53 | HHI.NSPN ---
Subjective History Day 2 after fall at home, she tripped running down on a hardwood floor, hitting her head but with no LOC. She fell again 20 minutes later and had difficulty walking after the second fall. The follow up CT of the head this am is stable, she is scheduled for right hip arthroplasty this am. Vitals . Vital Signs Date Time Temp Pulse Resp B/P Pulse Ox O2 Delivery O2 Flow Rate FiO2 08/09/16 07:37 95 21 08/09/16 06:00 105 08/09/16 04:00 100 08/09/16 04:00 98.6 97 24 124/57 99 08/09/16 00:00 98.4 103 25 104/52 96 08/09/16 00:00 107 08/09/16 00:00 96 Room Air 08/08/16 21:42 119 18 110/63 97 Room Air 08/08/16 19:01 125 18 145/84 95 Room Air 08/08/16 18:32 136 18 172/77 95 Room Air 08/08/16 18:00 127 16 181/100 95 Room Air 08/08/16 15:00 86 22 172/90 98 08/08/16 08/08/16 08/09/16 15:00 23:00 07:00 Intake Total 891 ml Output Total 1000 ml Balance -109 ml Physical Exam Eyes Eyes: Pupils Equal Neuro Mental Status: Awake, Confused Pupils: Reactive Bilaterally [place] Coma Scale Best Eye Openin - Spontaneous Best Verbal: 4 - Confused Best Motor: 6 - Obeys Total Glascow Coma Scale (GCS): 14 Cardiac Cardiac: Regular Rate & Rhythm (with PVCs) Respiratory Respiratory: CTA Gastrointestinal Gastrointestinal: Soft Musculoskeletal Extremities Upper Extremities Deltoid Bicep Tricep HI W. Ext Right Left Lower Extremeties Ilio Quad Plantar Dorsi EHL Right Left Musculoskeletal Remarks Moves all extremities with good strength Dermatologic Dermatologic: Abrasions Extremities Edema: SCDs Objective Labs Laboratory Tests 08/08/16 16:40 08/09/16 03:20 Laboratory Tests Test 08/08/16 08/09/16 16:40 03:20 Sodium Level 133 MEQ/L 133 MEQ/L Potassium Level 3.7 MEQ/L 3.4 MEQ/L Chloride Level 97 MEQ/L 99 MEQ/L Carbon Dioxide Level 27.3 MEQ/L 27.3 MEQ/L Anion Gap 9 MEQ/L 7 MEQ/L Blood Urea Nitrogen 13 MG/DL 11 MG/DL Creatinine 0.57 MG/DL 0.66 MG/DL Estimat Glomerular Filtration 100 ML/MIN 85 ML/MIN Rate Random Glucose 114 MG/DL 173 MG/DL Calcium Level 8.4 MG/DL 8.4 MG/DL Imaging Remarks Last Impressions Head CT 08/09/16 0600 Signed Impressions: Service Date/Time: July 05:22 - CONCLUSION: Stable minimal subarachnoid hemorrhage right parietal convexity. Yon Bailey MD Pelvis X-Ray 08/08/16 0000 Signed Impressions: Service Date/Time: Monday, August 08, 2016 20:34 - CONCLUSION: 1. Right femoral neck fracture with superior migration of the distal shaft. Yon Bailey MD Finger X-Ray 08/08/16 0000 Signed Impressions: Service Date/Time: Monday, August 08, 2016 14:37 - CONCLUSION: 1. No acute fracture or dislocation. 2. 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 3. Diffuse osteopenia. Mustapha Riddle MD Femur X-Ray 08/08/16 0000 Signed Impressions: Service Date/Time: Monday, August 08, 2016 20:35 - CONCLUSION: No acute fracture. Yon Bailey MD Chest X-Ray 08/08/16 0000 Signed Impressions: Service Date/Time: Monday, August 08, 2016 20:35 - CONCLUSION: Scattered interstitial densities likely chronic interstitial lung disease although acute component cannot be excluded given lack of prior studies. Yon Bailey MD Assessment & Plan Diagnosis: (1) Dementia Plan: She is still able to recognize her daughter but has mood and visuospatial problems. OT/PT will follow (2) Traumatic subarachnoid hemorrhage Plan: Follow up head CT stable, may be on prophylactic lovenox dose. (3) Hyponatremia Plan: Mild, will provide sodium replacement with IVF and avoid hypovolemia (4) Atrial fibrillation Plan: Anticoagulation will be on hold until the bleed has resolved (5) HTN (hypertension) Plan: on lisinopril and metoprolol, potassium to be replaced (6) Balance disorder Plan: OT/PT to evaluate the safety of gait prior to home discharge Critical Care Time (minutes): 10 Johnson Chris Aug 09, 2016 08:53
--- NOTE | 2016-08-09 10:27 | HHI.PR ---
Subjective Remarks Pleasantly demented 85 yo female, in bed, appears in nad. Denies headache, change in vision. No n/v/d/c. Objective Vitals Vital Signs Date Time Temp Pulse Resp B/P Pulse Ox O2 Delivery O2 Flow Rate FiO2 08/09/16 10:00 84 08/09/16 08:00 97.6 109 21 147/72 96 08/09/16 08:00 114 08/09/16 07:37 95 21 08/09/16 07:00 96 Room Air 08/09/16 06:00 105 08/09/16 04:00 100 08/09/16 04:00 98.6 97 24 124/57 99 08/09/16 00:00 98.4 103 25 104/52 96 08/09/16 00:00 107 08/09/16 00:00 96 Room Air 08/08/16 21:42 119 18 110/63 97 Room Air 08/08/16 19:01 125 18 145/84 95 Room Air 08/08/16 18:32 136 18 172/77 95 Room Air 08/08/16 18:00 127 16 181/100 95 Room Air 08/08/16 15:00 86 22 172/90 98 I/O 08/08/16 08/08/16 08/08/16 08/09/16 08/09/16 08/09/16 07:00 15:00 23:00 07:00 15:00 23:00 Intake Total 891 ml Output Total 1000 ml Balance -109 ml Intake IV Total 891 ml Output Urine Total 1000 ml # Bowel Movements 1 Result Diagram: 08/09/16 0320 08/09/16 0320 Imaging Last Impressions Head CT 08/09/16 0600 Signed Impressions: Service Date/Time: July 05:22 - CONCLUSION: Stable minimal subarachnoid hemorrhage right parietal convexity. Yon Bailey MD Pelvis X-Ray 08/08/16 0000 Signed Impressions: Service Date/Time: Monday, August 08, 2016 20:34 - CONCLUSION: 1. Right femoral neck fracture with superior migration of the distal shaft. Yon Bailey MD Finger X-Ray 08/08/16 0000 Signed Impressions: Service Date/Time: Monday, August 08, 2016 14:37 - CONCLUSION: 1. No acute fracture or dislocation. 2. 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 3. Diffuse osteopenia. Mustapha Riddle MD Femur X-Ray 08/08/16 0000 Signed Impressions: Service Date/Time: Monday, August 08, 2016 20:35 - CONCLUSION: No acute fracture. Yon Bailey MD Chest X-Ray 08/08/16 0000 Signed Impressions: Service Date/Time: Monday, August 08, 2016 20:35 - CONCLUSION: Scattered interstitial densities likely chronic interstitial lung disease although acute component cannot be excluded given lack of prior studies. Yon Bailey MD Objective Remarks Gen: Awake, alert elderly woman Head: Normal. Neck: Supple, airway widely patent. No obstruction to breathing. Lungs: Clear, no wheezes or crackles. Comfortable respiratory pattern. Heart: NL S1S2, RRR. No JVD. Abdomen: Soft, nondistended. No tenderness. BS active. Extremities: Tender right hip. Warm, and well perfused feet and hands. Neuro: EOMs, pupils normal. Moves feet and fingers to command. Very slow response time to questions. A/P Problem List: (1) Fracture of femoral neck, right, closed ICD Code: S72.001A Status: Acute (2) Traumatic subarachnoid hemorrhage ICD Code: S06.6X9A Status: Acute (3) Dislocation of finger, interphalangeal joint, right, closed ICD Code: S63.279A Status: Acute (4) Skin tear of elbow without complication ICD Code: S51.019A Status: Acute (5) Dementia ICD Code: F03.90 Status: Acute Assessment and Plan 1. Small traumatic SAH, no cerebral contusion or mass effect. 2. Right femoral neck fracture, markedly displaced. 3. Dislocation finger right hand. 4. Skin avulsion right arm, partial thickness. 5. Hypokalemia Bed rest. Ortho bowel regimen. Pepcid. Serial neurological exams. Hold chemical DVT Px due to SAH. Ortho consult, plan foe right hemiarthoplasty by Dr Peters 08/09/16 Pain meds per pain scale Monitor and replace electrolytes. Ordered ICU electrolyte protocol. Overall impression: Multiple injuries from fall earlier today. Stable hemodynamic and respiratory function. Will require ORIF right hip and early mobilization. SAH is minimal and unlikely to cause any problems. Reasonable candidate for hip surgery. Discussed with the patient, nurse. Problem Qualifiers (1) Traumatic subarachnoid hemorrhage: Qualified Code: S06.6X9A - Traumatic subarachnoid hemorrhage, with loss of consciousness of unspecified duration, initial encounter (2) Dislocation of finger, interphalangeal joint, right, closed: Qualified Code: S63.279A - Dislocation of finger, interphalangeal joint, right , closed, initial encounter (3) Skin tear of elbow without complication: Qualified Code: S51.011A - Skin tear of elbow without complication, right, initial encounter (4) Dementia: Qualified Code: F03.90 - Dementia without behavioral disturbance, unspecified dementia type Mary Gomez MD Aug 09, 2016 10:26
[2016-08-09] MEDS ORDERED: SODIUM PHOSPHATE INJ 30 MMOL in SODIUM CHLOR 0.9% 250 ML INJ 240 ML IV PRN (10:30)
[2016-08-09] MEDS ORDERED: POTASSIUM PHOSPHATE MONOBASIC 500 MG TAB PO PRN (10:30)
[2016-08-09] MEDS ORDERED: POTASSIUM CHLOR 40 MEQ PREMIX 100 ML IV PRN ×2 (10:30)
[2016-08-09] MEDS ORDERED: MAGNESIUM SULFATE INJ 4 GM in SODIUM CHLORIDE 0.9% INJ 92 ML IV PRN (10:30)
[2016-08-09] MEDS ORDERED: POTASSIUM PHOSPHATE MONOBASIC 500 MG TAB PO/TUBE PRN (10:30)
[2016-08-09] MEDS ORDERED: MAGNESIUM OXIDE 400 MG TAB PO PRN (10:30)
[2016-08-09] MEDS ORDERED: POTASSIUM CL 40 MEQ/30 ML LIQ UDC PO/TUBE PRN ×2 (10:30)
[2016-08-09] MEDS ORDERED: POTASSIUM CHLOR 20 MEQ PREMIX 100 ML IV PRN ×2 (10:30)
[2016-08-09] MEDS ORDERED: MAGNESIUM SULFATE INJ 2 GM in SODIUM CHLORIDE 0.9% INJ 96 ML IV PRN (10:30)
[2016-08-09] MEDS: POTASSIUM PHOSPHATE INJ 30 MMOL in SODIUM CHLOR 0.9% 250 ML INJ 250 ML IV PRN ×2 (14:48→14:51)
[2016-08-09] MEDS: cloNIDine HCL 0.1 MG TAB PO PRN (16:13)
[2016-08-10] VITALS (12 sets, daily range): BP systolic 140–159; BP diastolic 64–74; PULSE 77–97; RESP 12–24; TEMP 97–98.9; O2SAT 94–100
[2016-08-10 04:38] LABS: AUTOMATED NEUTROPHIL # 7.6 TH/MM3 (1.8-7.7); BASOPHIL # 0.1 TH/MM3 (0-0.2); BASOPHIL % 0.5 % (0.0-2.0); EOSINOPHIL # 0.2 TH/MM3 (0-0.4); EOSINOPHIL % 2.2 % (0.0-4.0); HEMATOCRIT 34.2 % (35.0-46.0); HEMO FLAGS DIFF FINAL; LYMPH % 11.8 % (9.0-44.0); LYMPHOCYTE # 1.2 TH/MM3 (1.0-4.8); MEAN CELL VOLUME 87.8 FL (80.0-100.0); MEAN CORPUSCULAR HEMOGLOBIN 30.1 PG (27.0-34.0); MEAN CORPUSCULAR HGB CONC 34.3 % (32.0-36.0); MONO % 9.5 % (0.0-8.0); PLATELET COUNT 197 TH/MM3 (150-450); RED CELL DISTRIBUTION WIDTH 13.8 % (11.6-17.2)
[2016-08-10 04:57] LABS: BICARBONATE 25.5 MEQ/L (21.0-32.0); POTASSIUM 3.4 MEQ/L (3.5-5.1)
[2016-08-10] MEDS: ESCITALOPRAM OXALATE 10 MG TAB PO SCH ×2 (07:26→21:23)
[2016-08-10] MEDS: LISINOPRIL 10 MG TAB PO SCH (07:28)
[2016-08-10] MEDS: METOPROLOL TARTRATE 25 MG TAB PO SCH ×2 (07:28→21:24)
[2016-08-10] MEDS: SODIUM CHLORIDE 0.9% FLUSH 5 ML FLUSH FLUSH SCH ×2 (07:29→21:00)
--- NOTE | 2016-08-10 07:32 | PD.ORT.PN ---
Subjective Subjective Remarks s/p right hip fx asleep. doing well Objective Vitals Vital Signs Date Time Temp Pulse Resp B/P Pulse Ox O2 Delivery O2 Flow Rate FiO2 08/10/16 06:00 81 08/10/16 04:00 85 08/10/16 04:00 98.6 78 20 140/65 98 08/10/16 00:00 85 08/10/16 00:00 98 Room Air 08/10/16 00:00 98.7 96 22 149/64 98 08/09/16 21:03 94 21 08/09/16 20:00 98.3 99 20 155/71 95 08/09/16 20:00 85 08/09/16 18:00 91 08/09/16 17:00 176/86 08/09/16 16:00 97.9 96 24 189/84 95 08/09/16 16:00 96 08/09/16 14:00 96 08/09/16 12:00 94 08/09/16 12:00 97.9 94 25 142/67 95 08/09/16 10:00 84 08/09/16 08:00 97.6 109 21 147/72 96 08/09/16 08:00 114 08/09/16 07:37 95 21 I/O 08/09/16 08/09/16 08/09/16 08/10/16 08/10/16 08/10/16 07:00 15:00 23:00 07:00 15:00 23:00 Intake Total 891 ml 550 ml 610 ml 726 ml Output Total 1000 ml 900 ml 850 ml 800 ml Balance -109 ml -350 ml -240 ml -74 ml Intake IV Total 891 ml 550 ml 610 ml 726 ml Output Urine Total 1000 ml 900 ml 850 ml 800 ml # Bowel Movements 1 2 2 2 Result Diagram: 08/10/16 0342 08/10/16 0342 Imaging Last [address] 08/09/16 0600 Signed Impressions: Service Date/Time: July 05:22 - CONCLUSION: Stable minimal subarachnoid hemorrhage right parietal convexity. Yon Bailey MD Objective Remarks RLE: hip flexed. nvi distally. no pain with movement. Assessment & Plan Assessment and Plan 1) Right Femoral Neck Fx -surgeyr today Abrahan Brady Aug 10, 2016 07:31
[2016-08-10] MEDS ORDERED: TRANEXAMIC ACID IV ONE (08:45)
[2016-08-10] MEDS ORDERED: XARE10TA PO (08:45)
[2016-08-10] MEDS ORDERED: SODIUM CHLORIDE 0.9% IV ONE (08:45)
[2016-08-10] MEDS ORDERED: HYDR-3288 PO (08:45)
[2016-08-10] MEDS ORDERED: WALKER/ADULT/FO1 MIS (08:46)
[2016-08-10] MEDS ORDERED: FAMOTIDINE 20 MG/2 ML VIAL ONE (08:51)
[2016-08-10] MEDS ORDERED: VANCOMYCIN HCL 1000 MG VIAL ONE (08:54)
[2016-08-10] MEDS ORDERED: GENTAMICIN SULFATE 80 MG/2 ML VIAL ONE (08:54)
[2016-08-10] MEDS ORDERED: SODIUM CHLOR 0.9% 250 ML INJ 250 ML ONE (08:54)
[2016-08-10] MEDS ORDERED: ceFAZolin INJ 1,000 MG VIAL ONE (08:54)
[2016-08-10] MEDS ORDERED: ACETAMINOPHEN 1000 MG/100 ML VIAL IV ONE (08:56)
--- NOTE | 2016-08-10 08:58 | MB ---
cc: SELVIN LOTT DATE OF CONSULTATION 08/09/2016 REASON FOR CONSULTATION Right femoral neck fracture. CONSULTING PHYSICIAN Dr. Rose KYA Humphries is an 85-year-old female who had a fall. She has a history of dementia. She did hit her head. She presented to the emergency room where she was found to have a subarachnoid hemorrhage, right femoral neck fracture, and a right hand fourth finger dislocation. She also had a skin tear of her right arm. She is currently in the Intensive Care Unit. She is awake, but confused. Currently there is no family at bedside. No other history is available. PAST MEDICAL HISTORY ILLNESSES Dementia ALLERGIES ADHESIVE TAPE MEDICATIONS Lisinopril. Please see EMR for A complete list of inpatient medications. SURGERIES Unobtainable REVIEW OF SYSTEMS Unobtainable SOCIAL HISTORY Unobtainable FAMILY HISTORY Unobtainable PHYSICAL EXAMINATION The patient is a thin 85-year-old female who is awake but confused. VITAL SIGNS: Temperature 98.9, pulse 82, respirations 24, blood pressure 159/72. O2 sat is 95% on room air. HEAD: The patient is normocephalic. Pupils are equal. NECK: Soft and nontender. Trachea is midline. ABDOMEN: Soft, nontender, nondistended. EXTREMITIES: Examination of the left arm reveals no pain with shoulder or wrist motion. Skin is intact. She has good cap refill in her fingers. Radial pulses are palpable. Examination of the right arm reveals no obvious pain or deformity with shoulder, elbow or wrist motion. She does have a dressing over a skin tear. Radial pulse is palpable. Examination of the left leg reveals no obvious pain or deformity with hip, knee or ankle motion. Skin is intact. Dorsalis pedis pulses palpable. Examination of right leg reveals pain with any hip motion. She has no tenderness around her knee tibia or ankle. Skin is intact. Dorsalis pedis pulses palpable. X-RAYS X-rays of right hip were reviewed. The patient has a displaced right femoral neck fracture. IMPRESSION 1. Dementia 2. Subarachnoid hemorrhage 3. Displaced right femoral neck fracture 4. Right hand fourth finger dislocation PLAN Treatment options at this time would include surgical right hip hemiarthroplasty. Nonoperative treatment would likely heal with poor result. Without surgery, the patient would not be able to ambulate or mobilize. The risks of surgery including bleeding, infection, injury to arteries, nerves and blood vessels, hip dislocation, leg length discrepancies, as well as medical complications including blood clot, stroke, heart attack and . I will attempt to contact family for consents. All questions will be answered at that time. A mid-level provider in my office (nurse practitioner or physician addictions counselor assistant) may see this patient on follow-up visits and continue to implement the objectives of this plan including: Starting or adjusting medications, injections , cast application, orthotics, brace application, physical therapy, radiological studies (including x-ray, MRI, CT, ultrasound, bone scan), vascular studies, neurologic studies, specialist consultation, and proceeding with surgical management, as appropriate. MD ANDREAS Ashley/DIANE /8:28 AM /8:52 AM PAOLO
--- NOTE | 2016-08-10 10:28 | PD.OP ---
cc: Brandon Patel MD Operative Report Date of Surgery: Aug 10, 2016 Preoperative Diagnosis: Displaced right femoral neck fracture Postoperative Diagnosis: Procedure: Right hip bipolar arthroplasty Anesthesia: Gen. Surgeon: Brandon Patel Senior Functional Analyst(s): DEANGELO Olson PA-C The surgical procedure was assisted by my physician speech language pathology assistant. My P.A. presence was necessary throughout this case for the manipulation and positioning of the surgical extremity. My P.A. was assisting me throughout the duration of this procedure. The skill set of a physician speech language pathology assistant was medically necessary to complete this procedure. During the surgical case the endoscopy tech was working at the back table and the physician speech language pathology assistant was directly assisting me. Operation and Findings: PLAN OF ACTIVITY Weight bear as tolerated. IMPLANTS USED DePuy Corail size 13 standard stem with size [45] bipolar head and [+1.5] neck. DRAIN: 7 mm Jeremy-Keenan drain DETAILS OF PROCEDURE This patient was brought into the operating room and placed on the OR table. The patient was given anesthesia. The patient received IV antibiotics. The patient was then placed in lateral decubitus position. The hip and leg were prepped with alcohol, followed by Hibiclens and draped in a usual sterile fashion. Clean air was used for this procedure. Time out procedure was performed. The procedure began with a 5 inch incision over the posterolateral hip. The subcutaneous tissue was dissected with the Bovie. The iliotibial band were split in line with fibers. The Charnley retractor was placed. The piriformis and external rotators were released from the femur and tagged with a #1 Vicryl suture. The capsule is now incised and tagged with #1 Vicryl. The femoral neck fracture was now visualized. A corkscrew was now used to remove the femoral head. The femoral head was sized and measured. Soft tissue was now protected. The hip skid was placed underneath the femoral neck. An oscillating saw was used to make a femoral neck cut. At this point attention was turned to preparation of the proximal femur. A box osteotome was used to remove the lateral cortex of the femoral neck. The T- handle reamer was used to open the femoral canal. Next, the canal was broached. A lateralizing reamer was used to help lateralize the prosthesis. At this point a trial head and neck were placed. The hip was reduced. The patient was found to have excellent stability with good range of motion. Trial components were removed. Soft tissue and bone were thoroughly irrigated. A Corail stem was now opened. The stem was now impacted into the proximal femur. Care was taken to keep appropriate anteversion. The head and neck were now impacted onto the stem. The hip was again reduced. The hip was found to have good range of motion and good stability. Leg lengths were clinically equal. The wound was thoroughly irrigated. The capsule, piriformis and iliotibial band were closed with #1 Vicryl. Subcutaneous tissue was closed with 3-0 Vicryl. The skin was closed with sandie. A sterile dressing was applied with Primapore. The patient was placed into a knee immobilizer. The patient was awakened and transferred to the recovery room in stable condition. Needle and sponge counts were correct. Brandon Patel MD Aug 10, 2016 10:28
[2016-08-10] MEDS ORDERED: SODIUM CHLORIDE 0.9% FLUSH 5 ML FLUSH IVF PRN (10:30)
[2016-08-10] MEDS ORDERED: Post-op Orders (for Pharmacy) MISC XX ONE (10:30)
[2016-08-10] MEDS ORDERED: MORPHINE SULFATE 4 MG/ML INJ IV PUSH PRN (10:30)
[2016-08-10] MEDS ORDERED: DO NOT ADM ANY ANTICOAGULANT DRUGS XX PRN (10:45)
[2016-08-10] MEDS ORDERED: *RESP: ALBUTEROL 2.5 MG/3 ML NEB (PRN) PERIprocedural Use ONLY NEB ONE (11:02)
[2016-08-10] MEDS ORDERED: fentaNYL CITRATE 250 MCG/5 ML AMP ONE (11:03)
[2016-08-10] MEDS ORDERED: *LABETALOL HCL 100 MG/20 ML VIAL PERIprocedural Use ONLY ONE (11:20)
[2016-08-10] MEDS ORDERED: ERGOCALCIFEROL (VIT D2) 50,000 UNIT CAP PO ONE (11:30)
--- NOTE | 2016-08-10 11:34 | HHI.PR ---
Subjective Remarks Discussed with the ICU nurse. Asleep. Surgery by Dr Peters today morning. Objective Vitals Vital Signs Date Time Temp Pulse Resp B/P Pulse Ox O2 Delivery O2 Flow Rate FiO2 08/10/16 08:00 98.9 82 24 159/72 95 08/10/16 08:00 82 08/10/16 07:00 96 Room Air 08/10/16 06:00 81 08/10/16 04:00 85 08/10/16 04:00 98.6 78 20 140/65 98 08/10/16 00:00 85 08/10/16 00:00 98 Room Air 08/10/16 00:00 98.7 96 22 149/64 98 08/09/16 21:03 94 21 08/09/16 20:00 98.3 99 20 155/71 95 08/09/16 20:00 85 08/09/16 18:00 91 08/09/16 17:00 176/86 08/09/16 16:00 97.9 96 24 189/84 95 08/09/16 16:00 96 08/09/16 14:00 96 08/09/16 12:00 94 08/09/16 12:00 97.9 94 25 142/67 95 I/O 08/09/16 08/09/16 08/09/16 08/10/16 08/10/16 08/10/16 07:00 15:00 23:00 07:00 15:00 23:00 Intake Total 891 ml 550 ml 610 ml 726 ml Output Total 1000 ml 900 ml 850 ml 800 ml Balance -109 ml -350 ml -240 ml -74 ml Intake IV Total 891 ml 550 ml 610 ml 726 ml Output Urine Total 1000 ml 900 ml 850 ml 800 ml # Bowel Movements 1 2 2 2 Result Diagram: 08/10/16 0342 08/10/16 0342 Imaging Last Impressions Head CT 08/09/16 0600 Signed Impressions: Service Date/Time: July 05:22 - CONCLUSION: Stable minimal subarachnoid hemorrhage right parietal convexity. Yon Bailey MD Pelvis X-Ray 08/08/16 0000 Signed Impressions: Service Date/Time: Monday, August 08, 2016 20:34 - CONCLUSION: 1. Right femoral neck fracture with superior migration of the distal shaft. Yon Bailey MD Finger X-Ray 08/08/16 0000 Signed Impressions: Service Date/Time: Monday, August 08, 2016 14:37 - CONCLUSION: 1. No acute fracture or dislocation. 2. 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 3. Diffuse osteopenia. Mustapha Riddle MD Femur X-Ray 08/08/16 0000 Signed Impressions: Service Date/Time: Monday, August 08, 2016 20:35 - CONCLUSION: No acute fracture. Yon Bailey MD Chest X-Ray 08/08/16 0000 Signed Impressions: Service Date/Time: Monday, August 08, 2016 20:35 - CONCLUSION: Scattered interstitial densities likely chronic interstitial lung disease although acute component cannot be excluded given lack of prior studies. Yon Bailey MD Objective Remarks Gen: Awake, alert elderly woman Head: Normal. Neck: Supple, airway widely patent. No obstruction to breathing. Lungs: Clear, no wheezes or crackles. Comfortable respiratory pattern. Heart: NL S1S2, RRR. No JVD. Abdomen: Soft, nondistended. No tenderness. BS active. Extremities: Tender right hip. Warm, and well perfused feet and hands. Neuro: EOMs, pupils normal. Moves feet and fingers to command. Very slow response time to questions. Procedures Displaced right femoral neck fracture s/p Right hip bipolar arthroplasty by Dr Peters A/P Problem List: (1) Fracture of femoral neck, right, closed ICD Code: S72.001A Status: Acute (2) Traumatic subarachnoid hemorrhage ICD Code: S06.6X9A Status: Acute (3) Dislocation of finger, interphalangeal joint, right, closed ICD Code: S63.279A Status: Acute (4) Skin tear of elbow without complication ICD Code: S51.019A Status: Acute (5) Dementia ICD Code: F03.90 Status: Acute Assessment and Plan 1. Small traumatic SAH, no cerebral contusion or mass effect. 2 Displaced right femoral neck fracture s/p Right hip bipolar arthroplasty by Dr Peters 3. Dislocation finger right hand. 4. Skin avulsion right arm, partial thickness. 5. Hypokalemia Bed rest. Ortho bowel regimen. Pepcid. Serial neurological exams. Hold chemical DVT Px due to SAH. Ortho consult, plan foe right hemiarthoplasty by Dr Peters 08/09/16 Pain meds per pain scale Monitor and replace electrolytes. ICU electrolyte protocol. Overall impression: Multiple injuries from fall earlier today. Stable hemodynamic and respiratory function. Will require ORIF right hip and early mobilization. SAH is minimal and unlikely to cause any problems. Reasonable candidate for hip surgery. Discussed with the patient, nurse. Problem Qualifiers (1) Traumatic subarachnoid hemorrhage: Qualified Code: S06.6X9A - Traumatic subarachnoid hemorrhage, with loss of consciousness of unspecified duration, initial encounter (2) Dislocation of finger, interphalangeal joint, right, closed: Qualified Code: S63.279A - Dislocation of finger, interphalangeal joint, right , closed, initial encounter (3) Skin tear of elbow without complication: Qualified Code: S51.011A - Skin tear of elbow without complication, right, initial encounter (4) Dementia: Qualified Code: F03.90 - Dementia without behavioral disturbance, unspecified dementia type Mary Gomez MD Aug 10, 2016 11:34
[2016-08-10] MEDS ORDERED: PHENYLEPH/NS 1000 MCG/10 ML SYR IV ONE (12:00)
[2016-08-10] MEDS ORDERED: ePHEDrine/NS 50 MG/5 ML SYR IV ONE (12:00)
[2016-08-10] MEDS ORDERED: PROPOFOL 200 MG/20 ML AMP IV ONE (12:00)
[2016-08-10] MEDS ORDERED: ONDANSETRON HCL 4 MG/2 ML VIAL IV PUSH ONE (12:00)
--- NOTE | 2016-08-10 12:19 | RADRPT ---
EXAM DATE/TIME: 08/10/2016 11:17 [facility] COMPARISON: PELVIS AP ONLY, August 08, 2016, 20:34. INDICATIONS : Post right hip surgery. MEDICAL HISTORY : None. SURGICAL HISTORY : None. ENCOUNTER: Initial ACUITY: 1 day PAIN SCORE: Non-responsive. LOCATION: Right hip FINDINGS: Single portable view of the right hip demonstrates interval total right knee arthroplasty. The acetab ular component appears vertically oriented in this projection. The femoral component appears normal i n orientation. The osseous structures are otherwise unremarkable. CONCLUSION: Status post right hip arthroplasty. The acetabular component appears vertically orien kinjal with respect to the adjacent pelvis. The femoral component is covered. Heather Pan MD on August 10, 2016 at 12:12 Board Certified Radiologist. This report was verified electronically.
[2016-08-10] MEDS: SODIUM CHLOR 0.9% 1000 ML INJ 1,000 ML IV SCH (12:54)
[2016-08-10] MEDS: ceFAZolin 2 GM PREMIX 50 ML IV SCH ×2 (14:02→21:24)
--- NOTE | 2016-08-10 17:53 | EKG ---
Date Performed: 08/09/2016 Time Performed: 20:14:26 PTAGE: 85 years EKG: Sinus tachycardia with PAC(s). Left anterior fascicular block Possible septal infarct - age undetermined Abnormal ECG NO PREVIOUS TRACING DOCTOR: Leta Patel Interpretating Date/Time 08/10/2016 17:52:25
--- NOTE | 2016-08-10 18:42 | HHI.NSPN ---
Subjective History Day 2 after fall at home, she tripped running down on a hardwood floor, hitting her head but with no LOC. She fell again 20 minutes later and had difficulty walking after the second fall. The follow up CT of the head this am is stable, she is scheduled for right hip arthroplasty this am. 08/10/16 More confused after the surgery but awake and alert. She is oriented to self only. She appears comfortable but confused. Vitals . Vital Signs Date Time Temp Pulse Resp B/P Pulse Ox O2 Delivery O2 Flow Rate FiO2 08/10/16 14:00 81 08/10/16 12:38 100 Nasal Cannula 3.00 08/10/16 12:30 78 08/10/16 12:30 97.0 78 16 153/68 100 08/10/16 12:00 97.8 79 16 156/73 96 Nasal Cannula 4 08/10/16 11:45 79 16 170/89 96 Nasal Cannula 4 08/10/16 11:30 88 16 152/77 96 Nasal Cannula 4 08/10/16 11:15 79 18 167/81 97 Nasal Cannula 4 08/10/16 11:00 78 18 174/84 93 Nasal Cannula 4 08/10/16 10:51 97.9 78 18 170/80 93 Nasal Cannula 4 08/10/16 08:00 98.9 82 24 159/72 95 08/10/16 08:00 82 08/10/16 07:00 96 Room Air 08/10/16 06:00 81 08/10/16 04:00 85 08/10/16 04:00 98.6 78 20 140/65 98 08/10/16 00:00 85 08/10/16 00:00 98 Room Air 08/10/16 00:00 98.7 96 22 149/64 98 08/09/16 21:03 94 21 08/09/16 20:00 98.3 99 20 155/71 95 08/09/16 20:00 85 08/09/16 08/09/16 08/10/16 15:00 23:00 07:00 Intake Total 550 ml 610 ml 726 ml Output Total 900 ml 850 ml 800 ml Balance -350 ml -240 ml -74 ml Physical Exam Head Head: Atraumatic Eyes Eyes: Pupils Equal Neuro Mental Status: Confused Pupils: Reactive Bilaterally (post surgical) Priddy Coma Scale Best Eye Openin - Spontaneous Best Verbal: 4 - Confused Best Motor: 6 - Obeys Total Glascow Coma Scale (GCS): 14 Genitourinary Genitourinary: Casarez Catheter In Place Musculoskeletal Extremities Upper Extremities Deltoid Bicep Tricep HI W. Ext Right Left Lower Extremeties Ilio Quad Plantar Dorsi EHL Right Left Musculoskeletal Remarks Moves all extremities purposefully Dermatologic Dermatologic: Abrasions Objective Labs Laboratory Tests 08/10/16 03:42 Laboratory Tests Test 08/10/16 03:42 Sodium Level 132 MEQ/L Potassium Level 3.4 MEQ/L Chloride Level 98 MEQ/L Carbon Dioxide Level 25.5 MEQ/L Anion Gap 9 MEQ/L Blood Urea Nitrogen 15 MG/DL Creatinine 0.51 MG/DL Estimat Glomerular Filtration 114 ML/MIN Rate Random Glucose 108 MG/DL Calcium Level 7.7 MG/DL 25-Hydroxy Vitamin D Total 35.6 ng/ML Assessment & Plan Diagnosis: (1) Dementia Plan: She is still able to recognize her daughter but has mood and visuospatial problems. OT/PT will follow, activity per ortho service (2) Traumatic subarachnoid hemorrhage Plan: Follow up head CT stable day 1 after the fall, may be on prophylactic lovenox dose. (3) Hyponatremia Plan: Mild, will provide sodium replacement with IVF and avoid hypovolemia. (4) Atrial fibrillation Plan: In sinus rhythm with frequent PVCs (5) HTN (hypertension) Plan: on lisinopril and metoprolol, potassium to be replaced (6) Balance disorder Plan: OT/PT /rehab consults Critical Care Time (minutes): Johnson Eddy Aug 10, 2016 18:42
[2016-08-10] MEDS: SODIUM CHLORIDE 0.9% FLUSH 5 ML FLUSH IVF SCH (21:00)
[2016-08-10] MEDS: ACETAMINOPHEN/HYDROcodone 325 MG/5 MG TAB PO PRN (21:24)
[2016-08-11] VITALS (11 sets, daily range): BP systolic 118–166; BP diastolic 57–75; PULSE 70–108; RESP 16–24; TEMP 96–99; O2SAT 92–95
[2016-08-11] MEDS: cloNIDine HCL 0.1 MG TAB PO PRN ×2 (01:09→13:24)
[2016-08-11] MEDS: ACETAMINOPHEN/HYDROcodone 325 MG/5 MG TAB PO PRN ×5 (01:37→19:36)
[2016-08-11] MEDS: ceFAZolin 2 GM PREMIX 50 ML IV SCH (03:06)
[2016-08-11] MEDS: niCARdipine INJ 25 MG in SODIUM CHLOR 0.9% 250 ML INJ 250 ML IV SCH (03:07)
[2016-08-11] MEDS: SODIUM CHLOR 0.9% 1000 ML INJ 1,000 ML IV SCH ×3 (03:27→19:35)
[2016-08-11 05:14] LABS: AUTOMATED NEUTROPHIL # 9.6 TH/MM3 (1.8-7.7); BASOPHIL # 0.1 TH/MM3 (0-0.2); BASOPHIL % 0.5 % (0.0-2.0); EOSINOPHIL # 0.3 TH/MM3 (0-0.4); EOSINOPHIL % 2.4 % (0.0-4.0); HEMATOCRIT 33.9 % (35.0-46.0); HEMO FLAGS DIFF FINAL; LYMPH % 10.8 % (9.0-44.0); LYMPHOCYTE # 1.3 TH/MM3 (1.0-4.8); MEAN CELL VOLUME 88.2 FL (80.0-100.0); MEAN CORPUSCULAR HEMOGLOBIN 29.9 PG (27.0-34.0); MEAN CORPUSCULAR HGB CONC 33.9 % (32.0-36.0); MONO % 8.5 % (0.0-8.0); NEUT % 77.8 % (16.0-70.0); PLATELET COUNT 216 TH/MM3 (150-450); RED BLOOD COUNT 3.84 MIL/MM3 (4.00-5.30); RED CELL DISTRIBUTION WIDTH 13.9 % (11.6-17.2); WHITE BLOOD COUNT 12.3 TH/MM3 (4.0-11.0)
[2016-08-11 05:18] LABS: BICARBONATE 28.6 MEQ/L (21.0-32.0)
[2016-08-11 05:19] LABS: POTASSIUM 4.4 MEQ/L (3.5-5.1)
--- NOTE | 2016-08-11 07:35 | HHI.NSPN ---
History Chief Complaint: Traumatic SAH Interval History Day 2 after fall at home, she tripped running down on a hardwood floor, hitting her head but with no LOC. She fell again 20 minutes later and had difficulty walking after the second fall. The follow up CT of the head this am is stable, she is scheduled for right hip arthroplasty this am. 08/10/16 More confused after the surgery but awake and alert. She is oriented to self only. She appears comfortable but confused. 08/11/16 Pt awake and alert. Not verbalizing other than "what". Not following commands. System Review Comments Not able to obtain given clinical condition. Exam Results Vital Signs Date Time Temp Pulse Resp B/P Pulse Ox O2 Delivery O2 Flow Rate FiO2 08/11/16 06:00 90 08/11/16 04:00 98.1 24 118/57 95 08/10/16 21:27 Nasal Cannula 2.00 08/09/16 21:03 21 Intake and Output 08/10/16 08/10/16 08/11/16 08:00 16:00 00:00 Intake Total 726 ml 1639 ml 1289 ml Output Total 800 ml 1170 ml 1670 ml Balance -74 ml 469 ml -381 ml Physical Examination Resp: CTA bilaterally Heart: NSR no murmurs Abd: Soft positive bs Skin: No cyanosis or erythema Muscle: moves all 4 extremities spontaneously but not following commands. Neuro: Pt awake and alert. He does not follow commands. Not verbalizing other than "what". Pupils 3mm bilaterally. Reactive bilaterally. Lab, Micro, Other Results Last Impressions Hip and Pelvis X-Ray 08/10/16 1028 Signed Impressions: Service Date/Time: Wednesday, August 10, 2016 11:17 - CONCLUSION: Status post right hip arthroplasty. The acetabular component appears vertically oriented with respect to the adjacent pelvis. The femoral component is covered. Heather Pan MD Head CT 08/09/16 0600 Signed Impressions: Service Date/Time: July 05:22 - CONCLUSION: Stable minimal subarachnoid hemorrhage right parietal convexity. Yon Bailey MD Pelvis X-Ray 08/08/16 0000 Signed Impressions: Service Date/Time: Monday, August 08, 2016 20:34 - CONCLUSION: 1. Right femoral neck fracture with superior migration of the distal shaft. Yon Bailey MD Finger X-Ray 08/08/16 0000 Signed Impressions: Service Date/Time: Monday, August 08, 2016 14:37 - CONCLUSION: 1. No acute fracture or dislocation. 2. 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 3. Diffuse osteopenia. Mustapha Riddle MD Femur X-Ray 08/08/16 0000 Signed Impressions: Service Date/Time: Monday, August 08, 2016 20:35 - CONCLUSION: No acute fracture. Yon Bailey MD Chest X-Ray 08/08/16 0000 Signed Impressions: Service Date/Time: Monday, August 08, 2016 20:35 - CONCLUSION: Scattered interstitial densities likely chronic interstitial lung disease although acute component cannot be excluded given lack of prior studies. Yon Bailey MD Laboratory Tests Test 08/10/16 08/11/16 20:00 03:55 Urine Osmolality 134 MOSM/KG Urine Random Sodium 27 MEQ/L White Blood Count 12.3 TH/MM3 Red Blood Count 3.84 MIL/MM3 Hemoglobin 11.5 GM/DL Hematocrit 33.9 % Mean Corpuscular Volume 88.2 FL Mean Corpuscular Hemoglobin 29.9 PG Mean Corpuscular Hemoglobin 33.9 % Concent Red Cell Distribution Width 13.9 % Platelet Count 216 TH/MM3 Mean Platelet Volume 9.1 FL Neutrophils (%) (Auto) 77.8 % Lymphocytes (%) (Auto) 10.8 % Monocytes (%) (Auto) 8.5 % Eosinophils (%) (Auto) 2.4 % Basophils (%) (Auto) 0.5 % Neutrophils # (Auto) 9.6 TH/MM3 Lymphocytes # (Auto) 1.3 TH/MM3 Monocytes # (Auto) 1.0 TH/MM3 Eosinophils # (Auto) 0.3 TH/MM3 Basophils # (Auto) 0.1 TH/MM3 CBC Comment DIFF FINAL Differential Comment Sodium Level 133 MEQ/L Potassium Level 4.4 MEQ/L Chloride Level 95 MEQ/L Carbon Dioxide Level 28.6 MEQ/L Anion Gap 9 MEQ/L Blood Urea Nitrogen 13 MG/DL Creatinine 0.60 MG/DL Estimat Glomerular Filtration 95 ML/MIN Rate Random Glucose 145 MG/DL Serum Osmolality 283 MOSM/KG Calcium Level 7.7 MG/DL 08/10/16 08/10/16 08/11/16 15:00 23:00 07:00 Intake Total 1639 ml 1289 ml 814 ml Output Total 1170 ml 1670 ml 930 ml Balance 469 ml -381 ml -116 ml Intake Oral 720 ml 240 ml IV Total 639 ml 569 ml 574 ml Other 1000 ml Output Urine Total 1000 ml 1600 ml 900 ml Drainage Total 20 ml 70 ml 30 ml Estimated Blood Loss 150 ml # Bowel Movements 1 0 1 Medical Decision Making Impression and Plan A: 85 y/o FM with traumatic SAH P: Continue to monitor Continue with current care. Rehab efforts. Yon Almonte Aug 11, 2016 07:35
[2016-08-11] MEDS ORDERED: POTASSIUM PHOSPHATE MONOBASIC 500 MG TAB PO ONE (08:45)
[2016-08-11] MEDS: CHOLECALCIFEROL (VIT D3) 5000 UNIT CAP PO SCH (08:52)
[2016-08-11] MEDS: METOPROLOL TARTRATE 25 MG TAB PO SCH ×2 (08:53→19:35)
[2016-08-11] MEDS: LISINOPRIL 10 MG TAB PO SCH (08:53)
[2016-08-11] MEDS: SODIUM CHLORIDE 0.9% FLUSH 5 ML FLUSH IVF SCH ×2 (09:00→19:37)
--- NOTE | 2016-08-11 11:56 | HHI.PR ---
Subjective Remarks Feels much better Daughter at bedside,. Patient was able to eat all her breakfast by herself. Denies any pain. Doesn't appear in acute distress. No n/v/ d/c. Objective Vitals Vital Signs Date Time Temp Pulse Resp B/P Pulse Ox O2 Delivery O2 Flow Rate FiO2 08/11/16 10:00 77 08/11/16 09:54 92 Nasal Cannula 2.00 08/11/16 08:00 107 08/11/16 08:00 99.0 108 18 149/75 95 08/11/16 08:00 81 08/11/16 07:00 Room Air 08/11/16 06:00 90 08/11/16 04:00 98.1 81 24 118/57 95 08/11/16 04:00 81 08/11/16 02:00 83 08/11/16 00:00 80 08/11/16 00:00 97.8 80 22 166/70 95 08/10/16 22:00 77 08/10/16 21:27 94 Nasal Cannula 2.00 08/10/16 20:00 97 08/10/16 20:00 Room Air 08/10/16 20:00 98.3 97 22 159/74 96 08/10/16 18:00 89 08/10/16 16:00 78 08/10/16 16:00 97.0 78 12 147/70 100 08/10/16 14:00 81 08/10/16 12:38 100 Nasal Cannula 3.00 08/10/16 12:30 78 08/10/16 12:30 97.0 78 16 153/68 100 08/10/16 12:00 97.8 79 16 156/73 96 Nasal Cannula 4 I/O 08/10/16 08/10/16 08/10/16 08/11/16 08/11/16 08/11/16 07:00 15:00 23:00 07:00 15:00 23:00 Intake Total 726 ml 1639 ml 1289 ml 814 ml Output Total 800 ml 1170 ml 1670 ml 930 ml Balance -74 ml 469 ml -381 ml -116 ml Intake Oral 720 ml 240 ml IV Total 726 ml 639 ml 569 ml 574 ml Other 1000 ml Output Urine Total 800 ml 1000 ml 1600 ml 900 ml Drainage Total 20 ml 70 ml 30 ml Estimated Blood Loss 150 ml # Bowel Movements 2 1 0 1 Result Diagram: 08/11/16 0355 08/11/16 0355 Imaging Last Impressions Hip and Pelvis X-Ray 08/10/16 1028 Signed Impressions: Service Date/Time: Wednesday, August 10, 2016 11:17 - CONCLUSION: Status post right hip arthroplasty. The acetabular component appears vertically oriented with respect to the adjacent pelvis. The femoral component is covered. Heather Pan MD Head CT 08/09/16 0600 Signed Impressions: Service Date/Time: July 05:22 - CONCLUSION: Stable minimal subarachnoid hemorrhage right parietal convexity. Yon Bailey MD Pelvis X-Ray 08/08/16 0000 Signed Impressions: Service Date/Time: Monday, August 08, 2016 20:34 - CONCLUSION: 1. Right femoral neck fracture with superior migration of the distal shaft. Yon Bailey MD Finger X-Ray 08/08/16 0000 Signed Impressions: Service Date/Time: Monday, August 08, 2016 14:37 - CONCLUSION: 1. No acute fracture or dislocation. 2. 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 3. Diffuse osteopenia. Mustapha Riddle MD Femur X-Ray 08/08/16 0000 Signed Impressions: Service Date/Time: Monday, August 08, 2016 20:35 - CONCLUSION: No acute fracture. Yon Bailey MD Chest X-Ray 08/08/16 0000 Signed Impressions: Service Date/Time: Monday, August 08, 2016 20:35 - CONCLUSION: Scattered interstitial densities likely chronic interstitial lung disease although acute component cannot be excluded given lack of prior studies. Yon Bailey MD Objective Remarks Gen: Awake, alert elderly woman Head: Normal. Neck: Supple, airway widely patent. No obstruction to breathing. Lungs: Clear, no wheezes or crackles. Comfortable respiratory pattern. Heart: NL S1S2, RRR. No JVD. Abdomen: Soft, nondistended. No tenderness. BS active. Extremities: Tender right hip. Warm, and well perfused feet and hands. Neuro: EOMs, pupils normal. Moves feet and fingers to command. Very slow response time to questions. Procedures Displaced right femoral neck fracture s/p Right hip bipolar arthroplasty by Dr Peetrs A/P Problem List: (1) Fracture of femoral neck, right, closed ICD Code: S72.001A Status: Acute (2) Traumatic subarachnoid hemorrhage ICD Code: S06.6X9A Status: Acute (3) Dislocation of finger, interphalangeal joint, right, closed ICD Code: S63.279A Status: Acute (4) Skin tear of elbow without complication ICD Code: S51.019A Status: Acute (5) Dementia ICD Code: F03.90 Status: Acute Assessment and Plan 1. Small traumatic SAH, no cerebral contusion or mass effect. 2 Displaced right femoral neck fracture s/p Right hip bipolar arthroplasty 08/[address] Peters 3. Dislocation finger right hand. 4. Skin avulsion right arm, partial thickness. 5. Hypokalemia Bed rest. Ortho bowel regimen. Pepcid. Serial neurological exams. Hold chemical DVT Px due to SAH. Ortho consult, plan foe right hemiarthoplasty by Dr Peters 08/09/16 Pain meds per pain scale Monitor and replace electrolytes. ICU electrolyte protocol. Overall impression: Multiple injuries from fall earlier today. Stable hemodynamic and respiratory function. Will require ORIF right hip and early mobilization. SAH is minimal and unlikely to cause any problems. Reasonable candidate for hip surgery. Discussed with the patient, nurse, family at bedside. Problem Qualifiers (1) Traumatic subarachnoid hemorrhage: Qualified Code: S06.6X9A - Traumatic subarachnoid hemorrhage, with loss of consciousness of unspecified duration, initial encounter (2) Dislocation of finger, interphalangeal joint, right, closed: Qualified Code: S63.279A - Dislocation of finger, interphalangeal joint, right , closed, initial encounter (3) Skin tear of elbow without complication: Qualified Code: S51.011A - Skin tear of elbow without complication, right, initial encounter (4) Dementia: Qualified Code: F03.90 - Dementia without behavioral disturbance, unspecified dementia type Mary Gomez MD Aug 11, 2016 11:56
[2016-08-11] MEDS: SODIUM CHLORIDE 0.9% FLUSH 5 ML FLUSH FLUSH SCH ×2 (13:23→19:37)
[2016-08-11] MEDS: ENOXAPARIN SODIUM 30 MG/0.3 ML SYRINGE SQ SCH (13:23)
[2016-08-11] MEDS: ESCITALOPRAM OXALATE 10 MG TAB PO SCH (19:36)
[2016-08-12] VITALS (8 sets, daily range): BP systolic 143–181; BP diastolic 71–104; PULSE 80–108; RESP 16–21; TEMP 96.4–98.9; O2SAT 92–98
[2016-08-12 05:18] LABS: BICARBONATE 24.1 MEQ/L (21.0-32.0)
[2016-08-12 05:20] LABS: AUTOMATED NEUTROPHIL # 7.8 TH/MM3 (1.8-7.7); BASOPHIL # 0.1 TH/MM3 (0-0.2); BASOPHIL % 0.5 % (0.0-2.0); EOSINOPHIL # 0.3 TH/MM3 (0-0.4); EOSINOPHIL % 2.7 % (0.0-4.0); HEMATOCRIT 27.7 % (35.0-46.0); HEMO FLAGS DIFF FINAL; LYMPH % 10.9 % (9.0-44.0); LYMPHOCYTE # 1.1 TH/MM3 (1.0-4.8); MEAN CELL VOLUME 88.4 FL (80.0-100.0); MEAN CORPUSCULAR HEMOGLOBIN 30.9 PG (27.0-34.0); MONO % 8.5 % (0.0-8.0); NEUT % 77.4 % (16.0-70.0); PLATELET COUNT 176 TH/MM3 (150-450); RED BLOOD COUNT 3.13 MIL/MM3 (4.00-5.30); RED CELL DISTRIBUTION WIDTH 13.6 % (11.6-17.2)
[2016-08-12 05:33] LABS: CALCIUM-PROTEIN CORRECTED 7.9 MG/DL (8.5-10.1)
[2016-08-12] MEDS ORDERED: POTASSIUM CHLORIDE 20 MEQ CONTROLLED RELEASE TAB PO ONE (10:15)
[2016-08-12] MEDS: METOPROLOL TARTRATE 25 MG TAB PO SCH ×3 (10:22→20:00)
[2016-08-12] MEDS: CHOLECALCIFEROL (VIT D3) 5000 UNIT CAP PO SCH (10:23)
[2016-08-12] MEDS: LISINOPRIL 10 MG TAB PO SCH (10:23)
[2016-08-12] MEDS: SODIUM CHLORIDE 0.9% FLUSH 5 ML FLUSH IVF SCH ×2 (10:24→20:00)
[2016-08-12] MEDS: SODIUM CHLORIDE 0.9% FLUSH 5 ML FLUSH FLUSH SCH ×2 (10:24→20:00)
[2016-08-12] MEDS: ENOXAPARIN SODIUM 30 MG/0.3 ML SYRINGE SQ SCH (10:34)
--- NOTE | 2016-08-12 10:36 | HHI.PR ---
Subjective Remarks Patient with Afib, will start metoprolol. Patient with dementia, did not receive pain meds since yesterday, will give pain meds now as elevated HR, discussed with the nurse. . Doesn't appear in acute distress. Sitter at bedside for reorientation. Objective Vitals Vital Signs Date Time Temp Pulse Resp B/P Pulse Ox O2 Delivery O2 Flow Rate FiO2 08/12/16 09:42 92 21 08/12/16 08:00 96.8 102 17 181/80 92 08/12/16 04:00 98.9 82 16 151/73 95 08/11/16 23:25 96.0 83 18 152/64 95 08/11/16 20:25 97.4 106 16 129/70 92 08/11/16 19:35 78 08/11/16 12:00 98.0 87 19 118/58 93 08/11/16 12:00 70 I/O 08/11/16 08/11/16 08/11/16 08/12/16 08/12/16 08/12/16 07:00 15:00 23:00 07:00 15:00 23:00 Intake Total 814 ml 1150 ml 836 ml 730 ml 324 ml Output Total 930 ml 820 ml 30 ml 240 ml Balance -116 ml 330 ml 806 ml 490 ml 324 ml Intake Oral 240 ml 480 ml 360 ml 240 ml IV Total 574 ml 670 ml 476 ml 490 ml 324 ml Output Urine Total 900 ml 800 ml 200 ml Drainage Total 30 ml 20 ml 30 ml 40 ml # Voids 0 0 # Bowel Movements 1 0 Result Diagram: 08/12/16 0424 08/12/16 0424 Imaging Last Impressions Hip and Pelvis X-Ray 08/10/16 1028 Signed Impressions: Service Date/Time: Wednesday, August 10, 2016 11:17 - CONCLUSION: Status post right hip arthroplasty. The acetabular component appears vertically oriented with respect to the adjacent pelvis. The femoral component is covered. Heather Pan MD Head CT 08/09/16 0600 Signed Impressions: Service Date/Time: July 05:22 - CONCLUSION: Stable minimal subarachnoid hemorrhage right parietal convexity. Yon Bailey MD Pelvis X-Ray 08/08/16 0000 Signed Impressions: Service Date/Time: Monday, August 08, 2016 20:34 - CONCLUSION: 1. Right femoral neck fracture with superior migration of the distal shaft. Yon Bailey MD Finger X-Ray 08/08/16 0000 Signed Impressions: Service Date/Time: Monday, August 08, 2016 14:37 - CONCLUSION: 1. No acute fracture or dislocation. 2. 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 3. Diffuse osteopenia. Mustapha Riddle MD Femur X-Ray 08/08/16 0000 Signed Impressions: Service Date/Time: Monday, August 08, 2016 20:35 - CONCLUSION: No acute fracture. Yon Bailey MD Chest X-Ray 08/08/16 0000 Signed Impressions: Service Date/Time: Monday, August 08, 2016 20:35 - CONCLUSION: Scattered interstitial densities likely chronic interstitial lung disease although acute component cannot be excluded given lack of prior studies. Yon Bailey MD Objective Remarks Gen: Awake, alert elderly woman Head: Normal. Neck: Supple, airway widely patent. No obstruction to breathing. Lungs: Clear, no wheezes or crackles. Comfortable respiratory pattern. Heart: NL S1S2, RRR. No JVD. Abdomen: Soft, nondistended. No tenderness. BS active. Extremities: Tender right hip. Warm, and well perfused feet and hands. Neuro: EOMs, pupils normal. Moves feet and fingers to command. Very slow response time to questions. Procedures Displaced right femoral neck fracture s/p Right hip bipolar arthroplasty by Dr Peters A/P Problem List: (1) Fracture of femoral neck, right, closed ICD Code: S72.001A Status: Acute (2) Traumatic subarachnoid hemorrhage ICD Code: S06.6X9A Status: Acute (3) Dislocation of finger, interphalangeal joint, right, closed ICD Code: S63.279A Status: Acute (4) Skin tear of elbow without complication ICD Code: S51.019A Status: Acute (5) Dementia ICD Code: F03.90 Status: Acute Assessment and Plan 1. Small traumatic SAH, no cerebral contusion or mass effect. Stable per repeat imaging 2 Displaced right femoral neck fracture s/p Right hip bipolar arthroplasty 08/[address] Peters 3. Dislocation finger right hand. 4. Skin avulsion right arm, partial thickness. 5. Hypokalemia Bed rest. Ortho bowel regimen. Pepcid. Serial neurological exams. Hold chemical DVT Px due to SAH. Ortho consult, plan foe right hemiarthoplasty by Dr Peters 08/09/16 Pain meds per pain scale Monitor and replace electrolytes. ICU electrolyte protocol. A Fib. Check EKG. Will start metoprolol 25 mg po bid. Overall impression: Multiple injuries from fall earlier today. Stable hemodynamic and respiratory function. Will require ORIF right hip and early mobilization. SAH is minimal and unlikely to cause any problems. Reasonable candidate for hip surgery. Discussed with the patient, nurse, family at bedside. Problem Qualifiers (1) Traumatic subarachnoid hemorrhage: Qualified Code: S06.6X9A - Traumatic subarachnoid hemorrhage, with loss of consciousness of unspecified duration, initial encounter (2) Dislocation of finger, interphalangeal joint, right, closed: Qualified Code: S63.279A - Dislocation of finger, interphalangeal joint, right , closed, initial encounter (3) Skin tear of elbow without complication: Qualified Code: S51.011A - Skin tear of elbow without complication, right, initial encounter (4) Dementia: Qualified Code: F03.90 - Dementia without behavioral disturbance, unspecified dementia type Mary Gomez MD Aug 12, 2016 10:36
[2016-08-12] MEDS: ACETAMINOPHEN/HYDROcodone 325 MG/5 MG TAB PO PRN ×2 (11:01→16:05)
--- NOTE | 2016-08-12 11:08 | PD.ORT.PN ---
Subjective Subjective Remarks Patient appears comfortable. Nonverbal. Objective Vitals Vital Signs Date Time Temp Pulse Resp B/P Pulse Ox O2 Delivery O2 Flow Rate FiO2 08/12/16 09:42 92 21 08/12/16 08:00 96.8 102 17 181/80 92 08/12/16 04:00 98.9 82 16 151/73 95 08/11/16 23:25 96.0 83 18 152/64 95 08/11/16 20:25 97.4 106 16 129/70 92 08/11/16 19:35 78 08/11/16 12:00 98.0 87 19 118/58 93 08/11/16 12:00 70 I/O 08/11/16 08/11/16 08/11/16 08/12/16 08/12/16 08/12/16 07:00 15:00 23:00 07:00 15:00 23:00 Intake Total 814 ml 1150 ml 836 ml 730 ml 324 ml Output Total 930 ml 820 ml 30 ml 240 ml 250 ml Balance -116 ml 330 ml 806 ml 490 ml 74 ml Intake Oral 240 ml 480 ml 360 ml 240 ml IV Total 574 ml 670 ml 476 ml 490 ml 324 ml Output Urine Total 900 ml 800 ml 200 ml 250 ml Drainage Total 30 ml 20 ml 30 ml 40 ml # Voids 0 0 1 # Bowel Movements 1 0 Result Diagram: 08/12/164 08/12/16 0424 Imaging Last [address] 08/09/16 0600 Signed Impressions: Service Date/Time: July 05:22 - CONCLUSION: Stable minimal subarachnoid hemorrhage right parietal convexity. Yon Bailey MD Objective Remarks RLE: dressing C/D/I calves soft 2-point restraint upper extremities Assessment & Plan Ortho Post Op Day #: 2 Problem List: Assessment and Plan POD # 2 Right Hip Bipolar Hemiarthroplasty Pain management - [place] DVT prophylaxis - Lovenox Physical therapy - WBAT, posterior hip precautions D/C planning - anticipating SNF Monitor Gabriel Morales Aug 12, 2016 11:08
[2016-08-12] MEDS: cloNIDine HCL 0.1 MG TAB PO PRN (16:04)
[2016-08-12] MEDS: ESCITALOPRAM OXALATE 10 MG TAB PO SCH (20:00)
[2016-08-12] MEDS: SODIUM CHLOR 0.9% 1000 ML INJ 1,000 ML IV SCH (20:01)
[2016-08-13] VITALS (7 sets, daily range): BP systolic 129–179; BP diastolic 56–93; PULSE 81–104; RESP 16–18; TEMP 96.4–98; O2SAT 94–99
[2016-08-13] MEDS: LORazepam 0.5 MG TAB PO PRN (00:50)
[2016-08-13] MEDS: cloNIDine HCL 0.1 MG TAB PO PRN (00:50)
[2016-08-13] MEDS ORDERED: METO25TA3 PO (08:20)
[2016-08-13] MEDS ORDERED: DOCU100S NG (08:20)
[2016-08-13] MEDS ORDERED: CHOL5000 PO (08:20)
--- NOTE | 2016-08-13 08:21 | HHI.DCPOC ---
Discharge Care Plan Goals to Promote Your Health * To prevent worsening of your condition and complications * To maintain your health at the optimal level Directions to Meet Your Goals Take your medications as prescribed Follow your dietary instruction Follow activity as directed Keep your appointments as scheduled Take your immunizations and boosters as scheduled If your symptoms worsen call your PCP, if no PCP go to Urgent Care Center or Emergency Room Smoking is Dangerous to Your Health. Avoid second hand smoke Call the 24-hour hour crisis hotline for domestic abuse at Mary Gomez MD Aug 13, 2016 08:20
--- NOTE | 2016-08-13 08:21 | HHI.DS ---
Discharge Summary Admission Date Aug 08, 2016 at 17:36 Discharge Date: Aug 24, 2016 Admitting Diagnosis SAH; dementia; R4th finger PIP dislocation/reduction (1) Fracture of femoral neck, right, closed ICD Code: S72.001A Diagnosis: Principal (2) Traumatic subarachnoid hemorrhage ICD Code: S06.6X9A Diagnosis: Principal (3) Dislocation of finger, interphalangeal joint, right, closed ICD Code: S63.279A Diagnosis: Principal (4) Skin tear of elbow without complication ICD Code: S51.019A Diagnosis: Secondary (5) Dementia ICD Code: F03.90 Diagnosis: Secondary Procedures Displaced right femoral neck fracture s/p Right Hip Bipolar Hemiarthroplasty by Dr Peters Brief History - From Admission Ms. Jimenez is an 85 -year-old female with a history of dementia who was attempting to get out of her chair when daughter was out of the room and fell over her dislocating her right fourth digit. The patient has had frequent falls because she forgets that she is unable to ambulate as well as she used to. Finger fracture was manually reduced in ER. CT of brain showed acute minimal right high parietal sulci hemorrhage with no mass effect and the patient is admitted for medical management. UA within normal parameters. WBC elevated 15.0 with neutrophilia. Hyponatremia with sodium 133 on admission. The patient had a pelvis and right femur x-ray that showed right femoral neck fracture. Dr. Peters was consulted. Patient will be NPO and will have ORIF in a.m. The patient was seen in the ER with her daughter and son-in-law at bedside. The patient is a poor historian and replies "no" to all questions. The patient's daughter says the patient ran down jacobo to find her and fell while running; head "bounced" off the floor. The patient's legs gave out when her daughter tried to transfer to a chair after the fall. She got up in interim and got finger caught between chairs with severe and obvious resulting deformity. The family is here from [place] (they have two homes; one in [place] and one in [place] - usually here until October). The daughter states the patient has severe insomnia - sleeps about 1 - 2 hours per night and takes Ativan 0.25 mg qhs, citalopram 5mg qhs to promote sleep but it only helps her sleep the 1-2 hours. If she takes higher doses of Ativan, she 's lethargic the next day. The patient doesn't complain about anything and has mostly been pretty healthy other than the dementia; no diarrhea, no n/v; good appetite but has lost some weight despite adequate p.o. intake. Daughter denies that the patient has a history of diabetes, VT, CHF, atrial fibrillation, liver or kidney, DVT, PE, CVA, seizures, cancer, or thyroid problems. Functional status: Toilets self independently - occasional incontinence - patient cleans herself independently if this occurs; eats with set-up assistance; regular consistency food; ambulates independently. CBC/BMP: 08/12/16 0424 08/12/16 0424 Significant Findings Laboratory Tests Test 08/10/16 08/11/16 08/12/16 20:00 03:55 04:24 Urine Osmolality 134 MOSM/KG (300-1300) White Blood Count 12.3 TH/MM3 (4.0-11.0) Red Blood Count 3.84 MIL/MM3 3.13 MIL/MM3 (4.00-5.30) (4.00-5.30) Hemoglobin 11.5 GM/DL 9.7 GM/DL (11.6-15.3) (11.6-15.3) Hematocrit 33.9 % 27.7 % (35.0-46.0) (35.0-46.0) Neutrophils (%) (Auto) 77.8 % 77.4 % (16.0-70.0) (16.0-70.0) Monocytes (%) (Auto) 8.5 % (0.0-8.0) 8.5 % (0.0-8.0) Neutrophils # (Auto) 9.6 TH/MM3 7.8 TH/MM3 (1.8-7.7) (1.8-7.7) Monocytes # (Auto) 1.0 TH/MM3 (0-0.9) Sodium Level 133 MEQ/L (136-145) Chloride Level 95 MEQ/L (98-107) Random Glucose 145 MG/DL (74-106) Calcium Level 7.7 MG/DL 6.5 MG/DL (8.5-10.1) (8.5-10.1) Potassium Level 3.0 MEQ/L (3.5-5.1) Creatinine 0.45 MG/DL (0.50-1.00) Protein Corrected Calcium 7.9 MG/DL (8.5-10.1) Total Protein 4.3 GM/DL (6.4-8.2) Imaging Last Impressions Hip and Pelvis X-Ray 08/10/16 1028 Signed Impressions: Service Date/Time: Wednesday, August 10, 2016 11:17 - CONCLUSION: Status post right hip arthroplasty. The acetabular component appears vertically oriented with respect to the adjacent pelvis. The femoral component is covered. Heather Pan MD Head CT 08/09/16 0600 Signed Impressions: Service Date/Time: July 05:22 - CONCLUSION: Stable minimal subarachnoid hemorrhage right parietal convexity. Yon Bailey MD Pelvis X-Ray 08/08/16 0000 Signed Impressions: Service Date/Time: Monday, August 08, 2016 20:34 - CONCLUSION: 1. Right femoral neck fracture with superior migration of the distal shaft. Yon Bailey MD Finger X-Ray 08/08/16 0000 Signed Impressions: Service Date/Time: Monday, August 08, 2016 14:37 - CONCLUSION: 1. No acute fracture or dislocation. 2. 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 3. Diffuse osteopenia. Mustapha Riddle MD Femur X-Ray 08/08/16 0000 Signed Impressions: Service Date/Time: Monday, August 08, 2016 20:35 - CONCLUSION: No acute fracture. Yon Bailey MD Chest X-Ray 08/08/16 0000 Signed Impressions: Service Date/Time: Monday, August 08, 2016 20:35 - CONCLUSION: Scattered interstitial densities likely chronic interstitial lung disease although acute component cannot be excluded given lack of prior studies. Yon Bailey MD PE at Discharge Gen: Awake, alert elderly woman Head: Normal. Neck: Supple, airway widely patent. No obstruction to breathing. Lungs: Clear, no wheezes or crackles. Comfortable respiratory pattern. Heart: NL S1S2, RRR. No JVD. Abdomen: Soft, nondistended. No tenderness. BS active. Extremities: Tender right hip. Warm, and well perfused feet and hands. Neuro: EOMs, pupils normal. Moves feet and fingers to command. Very slow response time to questions. Hospital Course 1. Small traumatic SAH, no cerebral contusion or mass effect. Stable per repeat imaging 2 Displaced right femoral neck fracture s/p Right hip bipolar arthroplasty 08/[address] Peters 3. Dislocation finger right hand. 4. Skin avulsion right arm, partial thickness. 5. Hypokalemia Bed rest. Ortho bowel regimen. Pepcid. Serial neurological exams. Hold chemical DVT Px due to SAH. Ortho consult, plan foe right hemiarthoplasty by Dr Peters 08/09/16 Pain meds per pain scale Monitor and replace electrolytes. ICU electrolyte protocol. A Fib. Check EKG. Will start metoprolol 25 mg po bid. Overall impression: Multiple injuries from fall earlier today. Stable hemodynamic and respiratory function. Will require ORIF right hip and early mobilization. SAH is minimal and unlikely to cause any problems. Reasonable candidate for hip surgery. Discussed with the patient, nurse. Discussed with the CM regarding DC plan. Patient is in restraints with sitter at bedside. Will remove restraints, will have fall precautions. DC IV line as no need for any IV meds. Also patient to receive some pain meds prn if BP and HR are elevated because she is not able to tell when she has pain. Discussed with the nurse. Pt Condition on Discharge: Fair Discharge Disposition: Discharge to SNF Discharge Time: > 30 minutes Discharge Instructions DIET: Follow Instructions for: Heart Healthy Diet Activities you can perform: Weight Bearing as Bimal (WBAT, posterior hip precautions) Follow up Referrals: Orthopedics - 2 Weeks @ [facility] with Brandon Peters MD PCP Follow-up - 3-5 Days SNF/SNF/ with [facility] New Medications: Hydrocodone-Acetaminophen ([place]) 7.5-325 mg Tab 1 TAB PO Q4H PRN PAIN #60 Ref 0 TAB Rivaroxaban (Xarelto) 10 Mg Tab 10 MG PO DAILY Blood Clot Prevention #21 Ref 0 TAB Walker/Adult/Folding (Walker/Adult/Folding) 1 Mis Mis 1 EA .ROUTE DIRECTED #1 Ref 0 EA Cholecalciferol (Vitamin D3) 5,000 Unit Cap 5000 UNITS PO DAILY vit d defici #30 CAP Docusate Sodium Liq (Docusate Sodium Liq) 50 Mg/5 Ml Liq 100 MG NG BID PRN CONSTIPATION #60 ML Metoprolol Tartrate (Metoprolol Tartrate) 25 Mg Tab 50 MG PO Q12HR Blood Pressure Management #60 TAB Nitrofurantoin Monohydrate Macrocrystals (Macrobid) 100 Mg Cap 100 MG PO BIDPC uti #10 CAP Continued Medications: Escitalopram (Escitalopram) 10 Mg Tab 10 MG PO DAILY depression #30 Ref 0 TAB (This prescription has been renewed) Lisinopril (Lisinopril) 10 Mg Tab 10 MG PO DAILY #30 Ref 0 TAB Lorazepam (Lorazepam) 0.5 Mg Tab 0.25 MG PO HS PRN ANXIETY AND/OR INSOMNIA #20 Ref 0 TAB (This prescription has been renewed) Discontinued Medications: Cephalexin (Cephalexin) 250 Mg Cap 250 MG PO DAILY Infection Ref 0 CAP ([fortify probiotic]) Mary Gomez MD Aug 13, 2016 08:21
[2016-08-13] MEDS: METOPROLOL TARTRATE 25 MG TAB PO SCH ×2 (08:39→21:23)
[2016-08-13] MEDS: LISINOPRIL 10 MG TAB PO SCH (08:39)
[2016-08-13] MEDS: CHOLECALCIFEROL (VIT D3) 5000 UNIT CAP PO SCH (08:39)
[2016-08-13] MEDS: SODIUM CHLORIDE 0.9% FLUSH 5 ML FLUSH IVF SCH ×2 (08:40→21:00)
[2016-08-13] MEDS: SODIUM CHLORIDE 0.9% FLUSH 5 ML FLUSH FLUSH SCH ×2 (08:40→21:00)
[2016-08-13] MEDS: ACETAMINOPHEN/HYDROcodone 325 MG/5 MG TAB PO PRN (09:23)
[2016-08-13] MEDS: ENOXAPARIN SODIUM 30 MG/0.3 ML SYRINGE SQ SCH (09:24)
--- NOTE | 2016-08-13 11:28 | HHI.PR ---
Subjective Remarks Patient is in not acute distress. No fever or chills. Says she doesn't have pain. Is bothering her the mittens. No n/v/d/c. Objective Vitals Vital Signs Date Time Temp Pulse Resp B/P Pulse Ox O2 Delivery O2 Flow Rate FiO2 08/13/16 08:10 96.4 81 18 179/70 99 08/13/16 04:00 98.0 83 16 158/73 95 08/13/16 00:00 97.8 87 17 166/93 97 08/12/16 20:00 98.2 83 16 156/74 98 08/12/16 19:59 89 08/12/16 17:48 80 143/71 08/12/16 16:00 96.4 90 18 163/104 96 08/12/16 12:00 96.4 108 21 177/81 92 I/O 08/12/16 08/12/16 08/12/16 08/13/16 08/13/16 08/13/16 07:00 15:00 23:00 07:00 15:00 23:00 Intake Total 730 ml 1004 ml 240 ml 120 ml Output Total 240 ml 550 ml Balance 490 ml 454 ml 240 ml 120 ml Intake Oral 240 ml 680 ml 240 ml 120 ml IV Total 490 ml 324 ml Output Urine Total 200 ml 550 ml Drainage Total 40 ml # Voids 0 12 3 3 # Bowel Movements 0 1 0 0 Result Diagram: 08/12/16 0424 08/12/16 0424 Imaging Last Impressions Hip and Pelvis X-Ray 08/10/16 1028 Signed Impressions: Service Date/Time: Wednesday, August 10, 2016 11:17 - CONCLUSION: Status post right hip arthroplasty. The acetabular component appears vertically oriented with respect to the adjacent pelvis. The femoral component is covered. Heather Pan MD Head CT 08/09/16 0600 Signed Impressions: Service Date/Time: July 05:22 - CONCLUSION: Stable minimal subarachnoid hemorrhage right parietal convexity. Yon Bailey MD Pelvis X-Ray 08/08/16 0000 Signed Impressions: Service Date/Time: Monday, August 08, 2016 20:34 - CONCLUSION: 1. Right femoral neck fracture with superior migration of the distal shaft. Yon Bailey MD Finger X-Ray 08/08/16 0000 Signed Impressions: Service Date/Time: Monday, August 08, 2016 14:37 - CONCLUSION: 1. No acute fracture or dislocation. 2. 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 3. Diffuse osteopenia. Mustapha Riddle MD Femur X-Ray 08/08/16 0000 Signed Impressions: Service Date/Time: Monday, August 08, 2016 20:35 - CONCLUSION: No acute fracture. Yon Bailey MD Chest X-Ray 08/08/16 0000 Signed Impressions: Service Date/Time: Monday, August 08, 2016 20:35 - CONCLUSION: Scattered interstitial densities likely chronic interstitial lung disease although acute component cannot be excluded given lack of prior studies. Yon Bailey MD Objective Remarks Gen: Awake, alert elderly woman Head: Normal. Neck: Supple, airway widely patent. No obstruction to breathing. Lungs: Clear, no wheezes or crackles. Comfortable respiratory pattern. Heart: NL S1S2, RRR. No JVD. Abdomen: Soft, nondistended. No tenderness. BS active. Extremities: Tender right hip. Warm, and well perfused feet and hands. Neuro: EOMs, pupils normal. Moves feet and fingers to command. Very slow response time to questions. Procedures Displaced right femoral neck fracture s/p Right hip bipolar arthroplasty by Dr Peters A/P Problem List: (1) Fracture of femoral neck, right, closed ICD Code: S72.001A Status: Acute (2) Traumatic subarachnoid hemorrhage ICD Code: S06.6X9A Status: Acute (3) Dislocation of finger, interphalangeal joint, right, closed ICD Code: S63.279A Status: Acute (4) Skin tear of elbow without complication ICD Code: S51.019A Status: Acute (5) Dementia ICD Code: F03.90 Status: Acute Assessment and Plan 1. Small traumatic SAH, no cerebral contusion or mass effect. Stable per repeat imaging 2 Displaced right femoral neck fracture s/p Right hip bipolar arthroplasty 08/[address] Peters 3. Dislocation finger right hand. 4. Skin avulsion right arm, partial thickness. 5. Hypokalemia Bed rest. Ortho bowel regimen. Pepcid. Serial neurological exams. Hold chemical DVT Px due to SAH. Ortho consult, plan foe right hemiarthoplasty by Dr Peters 08/09/16 Pain meds per pain scale Monitor and replace electrolytes. ICU electrolyte protocol. A Fib. Check EKG. Will start metoprolol 25 mg po bid. Overall impression: Multiple injuries from fall earlier today. Stable hemodynamic and respiratory function. Will require ORIF right hip and early mobilization. SAH is minimal and unlikely to cause any problems. Reasonable candidate for hip surgery. Discussed with the patient, nurse. Discussed with the CM regarding DC plan. Patient is in restraints with sitter at bedside. Will remove restraints, will have fall precautions. DC IV line as no need for any IV meds. Also patient to receive some pain meds prn if BP and HR are elevated because she is not able to tell when she has pain. Discussed with the nurse. Problem Qualifiers (1) Traumatic subarachnoid hemorrhage: Qualified Code: S06.6X9A - Traumatic subarachnoid hemorrhage, with loss of consciousness of unspecified duration, initial encounter (2) Dislocation of finger, interphalangeal joint, right, closed: Qualified Code: S63.279A - Dislocation of finger, interphalangeal joint, right , closed, initial encounter (3) Skin tear of elbow without complication: Qualified Code: S51.011A - Skin tear of elbow without complication, right, initial encounter (4) Dementia: Qualified Code: F03.90 - Dementia without behavioral disturbance, unspecified dementia type Mary Gomez MD Aug 13, 2016 11:28
[2016-08-13] MEDS: SODIUM CHLOR 0.9% 1000 ML INJ 1,000 ML IV SCH (12:14)
--- NOTE | 2016-08-13 19:42 | EKG ---
Date Performed: 08/12/2016 Time Performed: 12:23:59 PTAGE: 85 years EKG: Sinus rhythm WITH OCCASIONAL SUPRAVENTRICULAR PREMATURE COMPLEXES MARKED LEFT AXIS DEVIATION ABNORMAL ECG PREVIOUS TRACING : 08/09/2016 20.14 DOCTOR: Rey Wiseman Interpretating Date/Time 08/13/2016 19:36:45
[2016-08-13] MEDS: ESCITALOPRAM OXALATE 10 MG TAB PO SCH (21:23)
[2016-08-14] VITALS (7 sets, daily range): BP systolic 151–174; BP diastolic 68–88; PULSE 79–89; RESP 16–19; TEMP 95.2–99.9; O2SAT 94–96
[2016-08-14] MEDS: SODIUM CHLOR 0.9% 1000 ML INJ 1,000 ML IV SCH ×2 (02:42→17:00)
[2016-08-14 05:19] LABS: AUTOMATED NEUTROPHIL # 11.1 TH/MM3 (1.8-7.7); BASOPHIL % 0.3 % (0.0-2.0); EOSINOPHIL # 0.2 TH/MM3 (0-0.4); EOSINOPHIL % 1.2 % (0.0-4.0); HEMATOCRIT 34.5 % (35.0-46.0); HEMO FLAGS DIFF FINAL; LYMPH % 7.5 % (9.0-44.0); MEAN CELL VOLUME 87.9 FL (80.0-100.0); MEAN CORPUSCULAR HEMOGLOBIN 29.3 PG (27.0-34.0); MEAN CORPUSCULAR HGB CONC 33.3 % (32.0-36.0); MONO % 9.1 % (0.0-8.0); NEUT % 81.9 % (16.0-70.0); PLATELET COUNT 293 TH/MM3 (150-450); RED BLOOD COUNT 3.93 MIL/MM3 (4.00-5.30); WHITE BLOOD COUNT 13.5 TH/MM3 (4.0-11.0)
[2016-08-14 05:48] LABS: BICARBONATE 28.6 MEQ/L (21.0-32.0); POTASSIUM 3.7 MEQ/L (3.5-5.1)
[2016-08-14] MEDS: METOPROLOL TARTRATE 25 MG TAB PO SCH ×2 (08:58→20:20)
[2016-08-14] MEDS: CHOLECALCIFEROL (VIT D3) 5000 UNIT CAP PO SCH (08:59)
[2016-08-14] MEDS: SODIUM CHLORIDE 0.9% FLUSH 5 ML FLUSH FLUSH SCH ×2 (08:59→20:20)
[2016-08-14] MEDS: LISINOPRIL 10 MG TAB PO SCH (08:59)
[2016-08-14] MEDS: SODIUM CHLORIDE 0.9% FLUSH 5 ML FLUSH IVF SCH ×2 (08:59→20:20)
[2016-08-14] MEDS: ACETAMINOPHEN/HYDROcodone 325 MG/5 MG TAB PO PRN ×2 (12:12→16:50)
[2016-08-14] MEDS: ENOXAPARIN SODIUM 30 MG/0.3 ML SYRINGE SQ SCH (12:12)
[2016-08-14] MEDS: LORazepam 0.5 MG TAB PO PRN (14:33)
--- NOTE | 2016-08-14 14:33 | HHI.PR ---
Subjective Remarks Per daughter at bedside she is ore agitated today. She was also complaining of having hip pain today and received some pain meds. No n/v/d/c. Objective Vitals Vital Signs Date Time Temp Pulse Resp B/P Pulse Ox O2 Delivery O2 Flow Rate FiO2 08/14/16 12:00 95.2 81 18 151/72 96 08/14/16 08:00 98.2 86 18 165/88 94 08/14/16 05:31 99.9 79 19 174/77 95 08/14/16 00:50 98.9 83 16 170/74 95 08/13/16 20:03 102 08/13/16 20:00 97.0 97 16 150/68 95 08/13/16 16:10 97.6 90 16 129/70 95 I/O 08/13/16 08/13/16 08/13/16 08/14/16 08/14/16 08/14/16 07:00 15:00 23:00 07:00 15:00 23:00 Intake Total 120 ml 860 ml 360 ml 240 ml Balance 120 ml 860 ml 360 ml 240 ml Intake Oral 120 ml 860 ml 360 ml 240 ml # Voids 3 3 3 1 # Bowel Movements 0 1 0 0 Result Diagram: 08/14/16 0456 08/14/16 0456 Imaging Last Impressions Hip and Pelvis X-Ray 08/10/16 1028 Signed Impressions: Service Date/Time: Wednesday, August 10, 2016 11:17 - CONCLUSION: Status post right hip arthroplasty. The acetabular component appears vertically oriented with respect to the adjacent pelvis. The femoral component is covered. Heather Pan MD Head CT 08/09/16 0600 Signed Impressions: Service Date/Time: July 05:22 - CONCLUSION: Stable minimal subarachnoid hemorrhage right parietal convexity. Yon Bailey MD Pelvis X-Ray 08/08/16 0000 Signed Impressions: Service Date/Time: Monday, August 08, 2016 20:34 - CONCLUSION: 1. Right femoral neck fracture with superior migration of the distal shaft. Yon Bailey MD Finger X-Ray 08/08/16 0000 Signed Impressions: Service Date/Time: Monday, August 08, 2016 14:37 - CONCLUSION: 1. No acute fracture or dislocation. 2. 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 3. Diffuse osteopenia. Mustapha Riddle MD Femur X-Ray 08/08/16 0000 Signed Impressions: Service Date/Time: Monday, August 08, 2016 20:35 - CONCLUSION: No acute fracture. Yon Bailey MD Chest X-Ray 08/08/16 0000 Signed Impressions: Service Date/Time: Monday, August 08, 2016 20:35 - CONCLUSION: Scattered interstitial densities likely chronic interstitial lung disease although acute component cannot be excluded given lack of prior studies. Yon Bailey MD Objective Remarks Gen: Awake, alert elderly woman Head: Normal. Neck: Supple, airway widely patent. No obstruction to breathing. Lungs: Clear, no wheezes or crackles. Comfortable respiratory pattern. Heart: NL S1S2, RRR. No JVD. Abdomen: Soft, nondistended. No tenderness. BS active. Extremities: Tender right hip. Warm, and well perfused feet and hands. Neuro: EOMs, pupils normal. Moves feet and fingers to command. Very slow response time to questions. Procedures Displaced right femoral neck fracture s/p Right hip bipolar arthroplasty by Dr Peters A/P Problem List: (1) Fracture of femoral neck, right, closed ICD Code: S72.001A Status: Acute (2) Traumatic subarachnoid hemorrhage ICD Code: S06.6X9A Status: Acute (3) Dislocation of finger, interphalangeal joint, right, closed ICD Code: S63.279A Status: Acute (4) Skin tear of elbow without complication ICD Code: S51.019A Status: Acute (5) Dementia ICD Code: F03.90 Status: Acute Assessment and Plan 1. Small traumatic SAH, no cerebral contusion or mass effect. Stable per repeat imaging 2 Displaced right femoral neck fracture s/p Right hip bipolar arthroplasty 08/[address] Peters 3. Dislocation finger right hand. 4. Skin avulsion right arm, partial thickness. 5. Hypokalemia Bed rest. Ortho bowel regimen. Pepcid. Serial neurological exams. Hold chemical DVT Px due to SAH. Ortho consult, plan foe right hemiarthoplasty by Dr Peters 08/09/16 Pain meds per pain scale Monitor and replace electrolytes. ICU electrolyte protocol. Dementia will consult psychiatry for recommendations A Fib. Check EKG. Will start metoprolol 25 mg po bid. Overall impression: Multiple injuries from fall earlier today. Stable hemodynamic and respiratory function. Will require ORIF right hip and early mobilization. SAH is minimal and unlikely to cause any problems. Reasonable candidate for hip surgery. Discussed with the patient, nurse, daughter. Discussed with the CM regarding DC plan. Patient is off restraints with sitter at bedside. Will remove restraints, will have fall precautions. DC IV line as no need for any IV meds. Also patient to receive some pain meds prn if BP and HR are elevated because she is not able to tell when she has pain. Discussed with the nurse. Problem Qualifiers (1) Traumatic subarachnoid hemorrhage: Qualified Code: S06.6X9A - Traumatic subarachnoid hemorrhage, with loss of consciousness of unspecified duration, initial encounter (2) Dislocation of finger, interphalangeal joint, right, closed: Qualified Code: S63.279A - Dislocation of finger, interphalangeal joint, right , closed, initial encounter (3) Skin tear of elbow without complication: Qualified Code: S51.011A - Skin tear of elbow without complication, right, initial encounter (4) Dementia: Qualified Code: F03.90 - Dementia without behavioral disturbance, unspecified dementia type Mary Gomez MD Aug 14, 2016 14:33
[2016-08-14] MEDS: ESCITALOPRAM OXALATE 10 MG TAB PO SCH (20:20)
[2016-08-15] VITALS (7 sets, daily range): BP systolic 147–183; BP diastolic 66–81; PULSE 74–100; RESP 17–20; TEMP 96.2–98.4; O2SAT 92–96
[2016-08-15] MEDS: SODIUM CHLOR 0.9% 1000 ML INJ 1,000 ML IV SCH (07:18)
--- NOTE | 2016-08-15 07:21 | PD.ORT.PN ---
Subjective Subjective Remarks Resting comfortably with no new complaints Objective Vitals Vital Signs Date Time Temp Pulse Resp B/P Pulse Ox O2 Delivery O2 Flow Rate FiO2 08/15/16 04:22 96.2 82 18 162/81 93 08/15/16 00:25 96.5 79 20 183/74 95 08/14/16 20:55 96.3 84 19 157/68 96 08/14/16 19:06 89 08/14/16 16:00 95.5 89 18 169/81 95 08/14/16 12:00 95.2 81 18 151/72 96 08/14/16 08:00 98.2 86 18 165/88 94 I/O 08/14/16 08/14/16 08/14/16 08/15/16 08/15/16 08/15/16 07:00 15:00 23:00 07:00 15:00 23:00 Intake Total 240 ml 480 ml 240 ml 240 ml Balance 240 ml 480 ml 240 ml 240 ml Intake Oral 240 ml 480 ml 240 ml 240 ml # Voids 1 5 3 4 # Bowel Movements 0 0 0 Result Diagram: 08/14/16 0456 08/14/16 0456 Imaging Last [address] 08/09/16 0600 Signed Impressions: Service Date/Time: July 05:22 - CONCLUSION: Stable minimal subarachnoid hemorrhage right parietal convexity. Yon Bailey MD Objective Remarks Right lower extremity: Clean dry dressings intact. Knee immobilizer. Intact sensation distally with good capillary refills in distal pulses Assessment & Plan Assessment and Plan POD # 5 Right Hip Bipolar Hemiarthroplasty Pain management - [place] DVT prophylaxis - Lovenox Physical therapy - WBAT, posterior hip precautions Orthopedically cleared for discharge to rehabilitation Follow-up with Dr. Patel or NATHALIA in 2 weeks SONNY BROOKS PA-C Aug 15, 2016 07:21
[2016-08-15] MEDS: SODIUM CHLORIDE 0.9% FLUSH 5 ML FLUSH IVF SCH ×2 (08:49→19:48)
[2016-08-15] MEDS: SODIUM CHLORIDE 0.9% FLUSH 5 ML FLUSH FLUSH SCH ×2 (08:49→19:48)
[2016-08-15] MEDS: LISINOPRIL 10 MG TAB PO SCH (08:50)
[2016-08-15] MEDS: CHOLECALCIFEROL (VIT D3) 5000 UNIT CAP PO SCH (08:50)
[2016-08-15] MEDS: METOPROLOL TARTRATE 25 MG TAB PO SCH (08:50)
[2016-08-15] MEDS: ACETAMINOPHEN/HYDROcodone 325 MG/5 MG TAB PO PRN (08:51)
[2016-08-15] MEDS: ENOXAPARIN SODIUM 40 MG/0.4 ML SYRINGE SQ SCH (11:00)
--- NOTE | 2016-08-15 13:32 | HHI.PR ---
Subjective Remarks Patient in nad. No cp, sob. She is calm alert. Says she is forgetting things and is difficult. Objective Vitals Vital Signs Date Time Temp Pulse Resp B/P Pulse Ox O2 Delivery O2 Flow Rate FiO2 08/15/16 12:00 98.4 82 17 147/66 96 08/15/16 08:00 97.6 74 18 164/69 92 08/15/16 04:22 96.2 82 18 162/81 93 08/15/16 00:25 96.5 79 20 183/74 95 08/14/16 20:55 96.3 84 19 157/68 96 08/14/16 19:06 89 08/14/16 16:00 95.5 89 18 169/81 95 I/O 08/14/16 08/14/16 08/14/16 08/15/16 08/15/16 08/15/16 07:00 15:00 23:00 07:00 15:00 23:00 Intake Total 240 ml 480 ml 240 ml 240 ml Balance 240 ml 480 ml 240 ml 240 ml Intake Oral 240 ml 480 ml 240 ml 240 ml # Voids 1 5 3 4 # Bowel Movements 0 0 0 Result Diagram: 08/14/16 0456 08/14/16 0456 Imaging Last Impressions Hip and Pelvis X-Ray 08/10/16 1028 Signed Impressions: Service Date/Time: Wednesday, August 10, 2016 11:17 - CONCLUSION: Status post right hip arthroplasty. The acetabular component appears vertically oriented with respect to the adjacent pelvis. The femoral component is covered. Heather Pan MD Head CT 08/09/16 0600 Signed Impressions: Service Date/Time: July 05:22 - CONCLUSION: Stable minimal subarachnoid hemorrhage right parietal convexity. Yon Bailey MD Pelvis X-Ray 08/08/16 0000 Signed Impressions: Service Date/Time: Monday, August 08, 2016 20:34 - CONCLUSION: 1. Right femoral neck fracture with superior migration of the distal shaft. Yon Bailey MD Finger X-Ray 08/08/16 0000 Signed Impressions: Service Date/Time: Monday, August 08, 2016 14:37 - CONCLUSION: 1. No acute fracture or dislocation. 2. 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 3. Diffuse osteopenia. Mustapha Riddle MD Femur X-Ray 08/08/16 0000 Signed Impressions: Service Date/Time: Monday, August 08, 2016 20:35 - CONCLUSION: No acute fracture. Yon Bailey MD Chest X-Ray 08/08/16 0000 Signed Impressions: Service Date/Time: Monday, August 08, 2016 20:35 - CONCLUSION: Scattered interstitial densities likely chronic interstitial lung disease although acute component cannot be excluded given lack of prior studies. Yon Bailey MD Objective Remarks Gen: Awake, alert elderly woman Head: Normal. Neck: Supple, airway widely patent. No obstruction to breathing. Lungs: Clear, no wheezes or crackles. Comfortable respiratory pattern. Heart: NL S1S2, RRR. No JVD. Abdomen: Soft, nondistended. No tenderness. BS active. Extremities: Tender right hip. Warm, and well perfused feet and hands. Neuro: EOMs, pupils normal. Moves feet and fingers to command. Very slow response time to questions. Procedures Displaced right femoral neck fracture s/p Right Hip Bipolar Hemiarthroplasty by Dr Peters A/P Problem List: (1) Fracture of femoral neck, right, closed ICD Code: S72.001A Status: Acute (2) Traumatic subarachnoid hemorrhage ICD Code: S06.6X9A Status: Acute (3) Dislocation of finger, interphalangeal joint, right, closed ICD Code: S63.279A Status: Acute (4) Skin tear of elbow without complication ICD Code: S51.019A Status: Acute (5) Dementia ICD Code: F03.90 Status: Acute Assessment and Plan 1. Small traumatic SAH, no cerebral contusion or mass effect. Stable per repeat imaging 2 Displaced right femoral neck fracture s/p Right hip bipolar arthroplasty 08/[address] Peters 3. Dislocation finger right hand. 4. Skin avulsion right arm, partial thickness. 5. Hypokalemia Bed rest. Ortho bowel regimen. Pepcid. Serial neurological exams. Hold chemical DVT Px due to SAH. Ortho consult, plan foe right hemiarthoplasty by Dr Peters 08/09/16 Pain meds per pain scale Monitor and replace electrolytes. ICU electrolyte protocol. Dementia will consult psychiatry for recommendations A Fib. Check EKG. Will start metoprolol 25 mg po bid. Overall impression: Multiple injuries from fall earlier today. Stable hemodynamic and respiratory function. Will require ORIF right hip and early mobilization. SAH is minimal and unlikely to cause any problems. Reasonable candidate for hip surgery. Discussed with the patient, nurse, daughter. Discussed with the CM regarding DC plan. Patient is off restraints with sitter at bedside. Remove restraints, will have fall precautions. DC IV line as no need for any IV meds. Also patient to receive some pain meds prn if BP and HR are elevated because she is not able to tell when she has pain. Discussed with the nurse. Problem Qualifiers (1) Traumatic subarachnoid hemorrhage: Qualified Code: S06.6X9A - Traumatic subarachnoid hemorrhage, with loss of consciousness of unspecified duration, initial encounter (2) Dislocation of finger, interphalangeal joint, right, closed: Qualified Code: S63.279A - Dislocation of finger, interphalangeal joint, right , closed, initial encounter (3) Skin tear of elbow without complication: Qualified Code: S51.011A - Skin tear of elbow without complication, right, initial encounter (4) Dementia: Qualified Code: F03.90 - Dementia without behavioral disturbance, unspecified dementia type Mary Gomez MD Aug 15, 2016 13:32
[2016-08-15] MEDS ORDERED: HALOPERIDOL LACTATE 5 MG/ML AMP IM PRN (16:00)
--- NOTE | 2016-08-15 16:10 | PD.CONS ---
Provisional Diagnosis Admission Date Aug 08, 2016 at 17:36 [place]. Dementia with behavioral disturbance History of Present Illness Service Psychiatry Consult Requested By Primary Care Physician Unknown HPI 85-year-old woman, domicile with his daughter, with psychiatric history of dementia, no previous psychiatric hospitalizations, no previous suicidal attempts, not taking any psychotropic, no significant medical history, who was brought to the hospital after falling, diagnosed with right he fracture , had surgery, in her post op state has been presenting episodes of combativeness, agitation, aggressive behavior. Patient also has been managed for electrolyte imbalance. She was consulted to psychiatry for behavioral management. On psychiatric evaluation today patient was calm, superficially cooperative, pleasantly confused and demented, she reports good mood, she says that she happy, patient believes that she is in a cafeteria with her family, she believes we are in 1991. Patient has a smiling her face, she says that she feels wonderful, denies pain, distress. There is no acute psychosis, aggressive behavior, agitation at the moment of this evaluation. Her daughter present during the evaluation is stays in the patient has been at baseline today , usually the patient is exactly as she is seen today, but just today was no herself, very agitated, combative, restless and anxious. The daughter confirms the patient doesn't have any previous psychiatric history, she has a diagnosis of dementia, with a progressive decline in functioning and memory in the last year, patient is fully dependent on her, even though she can is still feed herself, sometimes take a shower and dress herself. She does not have any safety concern at this moment. Review of Systems Constitutional: DENIES: Diaphoretic episodes, Fatigue, Fever, Weight gain, Weight loss, Chills, Dizziness, Change in appetite, Night Sweats Endocrine: DENIES: Abnorml menstrual pattern, Heat/cold intolerance, Polydipsia , Polyuria, Polyphagia Eyes: DENIES: Blurred vision, Diplopia, Eye inflammation, Eye pain, Vision loss , Photosensitivity, Double Vision Ears, nose, mouth, throat: DENIES: Tinnitus, Hearing loss, Vertigo, Nasal discharge, Oral lesions, Throat pain, Hoarseness, Ear Pain, Running Nose, Epistaxis, Sinus Pain, Toothache, Odynophagia Respiratory: DENIES: Apneas, Cough, Snoring, Wheezing, Hemoptysis, Sputum production, Shortness of breath Cardiovascular: DENIES: Chest pain, Palpitations, Syncope, Dyspnea on Exertion , PND, Lower Extremity Edema, Orthopnea, Claudication Genitourinary: DENIES: Abnormal vaginal bleeding, Dysmenorrhea, Dyspareunia, Sexual dysfunction, Urinary frequency, Urinary incontinence, Urgency, Hematuria , Dysuria, Nocturia, Vaginal discharge Musculoskeletal: DENIES: Joint pain, Muscle aches, Stiffness, Joint Swelling, Back pain, Neck pain Integumentary: DENIES: Abnormal pigmentation, Pruritus, Rash, Nail changes, Breast masses, Breast skin changes, Nipple discharge Hematologic/lymphatic: DENIES: Bruising, Lymphadenopathy Immunologic/allergic: DENIES: Eczema, Urticaria Neurologic: DENIES: Abnormal gait, Headache, Localized weakness, Paresthesias, Seizures, Speech Problems, Tremor, Poor Balance Psychiatric: DENIES: Anxiety, Confusion, Mood changes, Depression, Hallucinations, Agitation, Suicidal Ideation, Homicidal Ideation, Delusions Past Family Social History Coded Allergies: Adhesives (Verified Allergy, Severe, skin tears, 08/08/16) skin is extremely fragile, will tear at the slightest stress Active Scripts Docusate Sodium Liq 50 Mg/5 Ml [id number] Mg NG BID PRN (CONSTIPATION) #60 ML Prov:Mary Gomez MD 08/13/16 Cholecalciferol (Vitamin D3)5,000 Unit Cap5,000 Units PO DAILY #30 CAP Prov:Mary Gomez MD 08/13/16 Metoprolol Tartrate 25 Mg Tab25 Mg PO Q12HR #60 TAB Prov:Mary Gomez MD 08/13/16 Rivaroxaban (Xarelto)10 Mg Tab10 Mg PO DAILY #21 TAB Ref 0 Prov:SONNY BROOKS PA-C 08/10/16 Hydrocodone-Acetaminophen ([place])7.5-325 mg Tab1 Tab PO Q4H PRN (PAIN) #60 TAB Ref 0 Prov:SONNY BROOKS PA-C 08/10/16 Reported Medications Escitalopram 10 Mg Tab10 Mg PO DAILY #30 TAB Ref 0 08/08/16 Lorazepam 0.5 Mg Tab0.25 Mg PO HS PRN (ANXIETY AND/OR INSOMNIA) Ref 0 08/08/16 Cephalexin 250 Mg Ots632 Mg PO DAILY Ref 0 08/08/16 Lisinopril 10 Mg Tab10 Mg PO DAILY #30 TAB Ref 0 08/08/16 [fortify probiotic] No Conflict Check 08/08/16 Current Medications Medications (Trade) Dose Ordered Sig/Malina Route Start Time Stop Time Status Last Admin (Catapres) 0.1 mg Q6H PRN PO 08/08/16 18:00 08/13/16 00:50 (Tylenol) 650 mg Q4H PRN PO 08/08/16 18:00 (Colace Liq) 100 mg BID PRN NG 08/08/16 18:00 (Milk Of Magnesia Liq) 30 ml DAILY PRN PO 08/08/16 18:00 (NS Flush) 2 ml UNSCH PRN FLUSH 08/08/16 18:30 (NS Flush) 2 ml BID FLUSH 08/08/16 21:00 08/13/16 08:40 (Zofran Inj) 4 mg Q6H PRN IVP 08/08/16 18:30 (Narcan Inj) 0.4 mg UNSCH PRN IV 08/08/16 18:30 (Pill Splitter) 1 ea UNSCH PRN OTHER 08/08/16 18:45 (Prinivil) 10 mg DAILY PO 08/09/16 09:00 08/15/16 08:50 (Ativan) 0.25 mg HS PRN PO 08/09/16 07:30 08/14/16 14:33 (Lexapro) 5 mg HS PO 08/09/16 21:00 08/14/16 20:20 (NS Flush) 2 ml UNSCH PRN IVF 08/10/16 10:30 (NS Flush) 2 ml BID IVF 08/10/16 21:00 08/13/16 08:40 ([place] 5-325 Mg) 1 tab Q4H PRN PO 08/10/16 10:30 08/15/16 08:51 ([place] 5-325 Mg) 2 tab Q4H PRN PO 08/10/16 10:30 08/13/16 09:23 (Morphine Inj) 3 mg Q3H PRN IV PUSH 08/10/16 10:30 08/11/16 00:28 (Vitamin D3) 5,000 units DAILY PO 08/11/16 09:00 08/15/16 08:50 (Lovenox Inj) 40 mg Q24H SQ 08/15/16 11:00 08/15/16 11:00 (Lopressor) 50 mg Q12HR PO 08/15/16 21:00 Family History Denies Social History Patient was born and raised in [place], she lives with her daughter in [place], she is retired, she has 3 kids, her highest level of education is high school. Physical Exam Vital Signs Vital Signs Date Time Temp Pulse Resp B/P Pulse Ox O2 Delivery O2 Flow Rate FiO2 08/15/16 12:00 98.4 82 17 147/66 96 08/12/16 09:42 21 08/11/16 09:54 Nasal Cannula 2.00 I/O 08/14/16 08/14/16 08/15/16 08:00 16:00 00:00 Intake Total 240 ml 480 ml 240 ml Balance 240 ml 480 ml 240 ml Mental Status Examination Appearance Elderly woman, age appearing, good hygiene, calm, superficially cooperative Speech: Unremarkable Orientation: Person Memory: Impaired (describe) Thought Process: Loose Association, Other (disorganized) Thought Content: Bizarre thinking Hallucination Type: None Attention and Concentration: Good Suicidal Ideation: No Previous Suicide Attempts: No Homicidal Ideation: No Judgement: Poor Affect: Euthymic Mood: Appropriate Motor Activity: Abnormal gait-specify Assessment & Plan Problem List: (1) Dementia with behavioral disturbance Assessment & Plan: 85-year-old woman, domicile with his daughter, with psychiatric history of dementia, no previous psychiatric hospitalizations, no previous suicidal attempts, not taking any psychotropic, no significant medical history, who was brought to the hospital after falling, diagnosed with right he fracture, had surgery, in her post op state has been presenting episodes of combativeness, agitation, aggressive behavior. Patient also has been managed for electrolyte imbalance. She was consulted to psychiatry for behavioral management. On psychiatric evaluation today patient was calm, superficially cooperative, pleasantly confused and demented, with a evident impairment in memory after admission, however no mood symptoms, anxiety, psychosis, combativeness, agitation and aggressive behavior was observed at the moment of this evaluation. Patient has multiple factorial increased risk for delirium and as a consequence the the potential of becoming aggressive and combative. For those episodes would order Haldol 1 mg IM/IV every 8 hours when necessary aggressive behavior and agitation, would avoid benzodiazepines and anticholinergic, agree with citalopram 5 mg for mood and mood swings. Extensive psychoeducation, motivation and support were provided to the patient and her daughter. The benefit and side effect of PRN Haldol was explained to patient's daughter. We'll follow-up. ICD Code: F03.91 Assessment & Plan Estimated LOS: Juan Ramos MD Aug 15, 2016 16:10
[2016-08-15] MEDS: ESCITALOPRAM OXALATE 10 MG TAB PO SCH (19:39)
[2016-08-15] MEDS: METOPROLOL TARTRATE 50 MG TAB PO SCH (19:39)
[2016-08-15] MEDS: LORazepam 0.5 MG TAB PO PRN (19:39)
[2016-08-16] VITALS (7 sets, daily range): BP systolic 107–165; BP diastolic 63–80; PULSE 68–92; RESP 16–18; TEMP 95.6–97.6; O2SAT 93–96
[2016-08-16] MEDS: ACETAMINOPHEN/HYDROcodone 325 MG/5 MG TAB PO PRN (00:24)
[2016-08-16] MEDS: CHOLECALCIFEROL (VIT D3) 5000 UNIT CAP PO SCH (11:11)
[2016-08-16] MEDS: METOPROLOL TARTRATE 50 MG TAB PO SCH ×2 (11:12→20:31)
[2016-08-16] MEDS: LISINOPRIL 10 MG TAB PO SCH (11:12)
[2016-08-16] MEDS: SODIUM CHLORIDE 0.9% FLUSH 5 ML FLUSH IVF SCH ×2 (11:15→20:29)
[2016-08-16] MEDS: SODIUM CHLORIDE 0.9% FLUSH 5 ML FLUSH FLUSH SCH ×2 (11:15→20:29)
[2016-08-16] MEDS: ENOXAPARIN SODIUM 40 MG/0.4 ML SYRINGE SQ SCH (11:16)
--- NOTE | 2016-08-16 12:55 | HHI.PR ---
Subjective Remarks Feels much better today. Denies any pain. She is in the chair. Daughter at bedside. Patient was walking with PT today. No n/v/d/c. Objective Vitals Vital Signs Date Time Temp Pulse Resp B/P Pulse Ox O2 Delivery O2 Flow Rate FiO2 08/16/16 08:00 97.0 87 17 158/72 95 08/16/16 05:07 96.9 92 16 160/80 95 08/16/16 00:00 95.6 80 16 158/72 95 08/15/16 20:00 97.6 100 18 148/66 95 08/15/16 17:00 97 08/15/16 16:00 97.6 88 18 161/79 94 I/O 08/15/16 08/15/16 08/15/16 08/16/16 08/16/16 08/16/16 07:00 15:00 23:00 07:00 15:00 23:00 Intake Total 240 ml 1200 ml 120 ml Balance 240 ml 1200 ml 120 ml Intake Oral 240 ml 1200 ml 120 ml # Voids 4 7 4 # Bowel Movements 0 2 0 Result Diagram: 08/14/16 0456 08/14/16 0456 Imaging Last Impressions Hip and Pelvis X-Ray 08/10/16 1028 Signed Impressions: Service Date/Time: Wednesday, August 10, 2016 11:17 - CONCLUSION: Status post right hip arthroplasty. The acetabular component appears vertically oriented with respect to the adjacent pelvis. The femoral component is covered. Heather Pan MD Head CT 08/09/16 0600 Signed Impressions: Service Date/Time: July 05:22 - CONCLUSION: Stable minimal subarachnoid hemorrhage right parietal convexity. Yon Bailey MD Pelvis X-Ray 08/08/16 0000 Signed Impressions: Service Date/Time: Monday, August 08, 2016 20:34 - CONCLUSION: 1. Right femoral neck fracture with superior migration of the distal shaft. Yon Bailey MD Finger X-Ray 08/08/16 0000 Signed Impressions: Service Date/Time: Monday, August 08, 2016 14:37 - CONCLUSION: 1. No acute fracture or dislocation. 2. 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 3. Diffuse osteopenia. Mustapha Riddle MD Femur X-Ray 08/08/16 0000 Signed Impressions: Service Date/Time: Monday, August 08, 2016 20:35 - CONCLUSION: No acute fracture. Yon Bailey MD Chest X-Ray 08/08/16 0000 Signed Impressions: Service Date/Time: Monday, August 08, 2016 20:35 - CONCLUSION: Scattered interstitial densities likely chronic interstitial lung disease although acute component cannot be excluded given lack of prior studies. Yon Bailey MD Objective Remarks Gen: Awake, alert elderly woman Head: Normal. Neck: Supple, airway widely patent. No obstruction to breathing. Lungs: Clear, no wheezes or crackles. Comfortable respiratory pattern. Heart: NL S1S2, RRR. No JVD. Abdomen: Soft, nondistended. No tenderness. BS active. Extremities: Tender right hip. Warm, and well perfused feet and hands. Neuro: EOMs, pupils normal. Moves feet and fingers to command. Very slow response time to questions. Procedures Displaced right femoral neck fracture s/p Right Hip Bipolar Hemiarthroplasty by Dr Peters A/P Problem List: (1) Fracture of femoral neck, right, closed ICD Code: S72.001A Status: Acute (2) Traumatic subarachnoid hemorrhage ICD Code: S06.6X9A Status: Acute (3) Dislocation of finger, interphalangeal joint, right, closed ICD Code: S63.279A Status: Acute (4) Skin tear of elbow without complication ICD Code: S51.019A Status: Acute (5) Dementia ICD Code: F03.90 Status: Acute Assessment and Plan 1. Small traumatic SAH, no cerebral contusion or mass effect. Stable per repeat imaging 2 Displaced right femoral neck fracture s/p Right hip bipolar arthroplasty 08/[address] Peters 3. Dislocation finger right hand. 4. Skin avulsion right arm, partial thickness. 5. Hypokalemia Bed rest. Ortho bowel regimen. Pepcid. Serial neurological exams. Hold chemical DVT Px due to SAH. Ortho consult, plan foe right hemiarthoplasty by Dr Peters 08/09/16 Pain meds per pain scale Monitor and replace electrolytes. ICU electrolyte protocol. Dementia will consult psychiatry for recommendations A Fib. Check EKG. Will start metoprolol 25 mg po bid. Overall impression: Multiple injuries from fall earlier today. Stable hemodynamic and respiratory function. Will require ORIF right hip and early mobilization. SAH is minimal and unlikely to cause any problems. Reasonable candidate for hip surgery. Discussed with the patient, nurse, daughter. Discussed with the CM regarding DC plan. Patient is off restraints with sitter at bedside. OFF restraints, will have fall precautions. DC IV line as no need for any IV meds. Also patient to receive some pain meds prn if BP and HR are elevated because she is not able to tell when she has pain. Discussed with the nurse. BP is better controlled increased metoprolol to 50 mg po bid Problem Qualifiers (1) Traumatic subarachnoid hemorrhage: Qualified Code: S06.6X9A - Traumatic subarachnoid hemorrhage, with loss of consciousness of unspecified duration, initial encounter (2) Dislocation of finger, interphalangeal joint, right, closed: Qualified Code: S63.279A - Dislocation of finger, interphalangeal joint, right , closed, initial encounter (3) Skin tear of elbow without complication: Qualified Code: S51.011A - Skin tear of elbow without complication, right, initial encounter (4) Dementia: Qualified Code: F03.90 - Dementia without behavioral disturbance, unspecified dementia type Mary Gomez MD Aug 16, 2016 12:55
[2016-08-16] MEDS ORDERED: METO25TA3 PO (12:56)
[2016-08-16] MEDS ORDERED: ESCI10TA PO (12:58)
[2016-08-16] MEDS ORDERED: LORA-373 PO (12:58)
[2016-08-16] MEDS: CALCIUM CARBONATE 500 MG CHEWABLE TAB CHEW SCH ×2 (15:00→20:30)
[2016-08-16] MEDS: ESCITALOPRAM OXALATE 10 MG TAB PO SCH (20:30)
[2016-08-17] VITALS (9 sets, daily range): BP systolic 96–175; BP diastolic 58–75; PULSE 66–96; RESP 16–24; TEMP 96–96.6; O2SAT 95–97
[2016-08-17] MEDS: cloNIDine HCL 0.1 MG TAB PO PRN ×2 (00:28→19:34)
[2016-08-17 05:50] LABS: AUTOMATED NEUTROPHIL # 10.7 TH/MM3 (1.8-7.7); BASOPHIL # 0.1 TH/MM3 (0-0.2); BASOPHIL % 0.4 % (0.0-2.0); EOSINOPHIL # 0.1 TH/MM3 (0-0.4); EOSINOPHIL % 0.7 % (0.0-4.0); HEMATOCRIT 34.6 % (35.0-46.0); HEMO FLAGS DIFF FINAL; LYMPH % 9.1 % (9.0-44.0); LYMPHOCYTE # 1.2 TH/MM3 (1.0-4.8); MEAN CELL VOLUME 88.8 FL (80.0-100.0); MEAN CORPUSCULAR HEMOGLOBIN 30.1 PG (27.0-34.0); MEAN CORPUSCULAR HGB CONC 33.9 % (32.0-36.0); NEUT % 80.8 % (16.0-70.0); PLATELET COUNT 344 TH/MM3 (150-450); WHITE BLOOD COUNT 13.3 TH/MM3 (4.0-11.0)
[2016-08-17 06:00] LABS: BICARBONATE 27.6 MEQ/L (21.0-32.0); POTASSIUM 3.6 MEQ/L (3.5-5.1)
[2016-08-17] MEDS: SODIUM CHLORIDE 0.9% FLUSH 5 ML FLUSH IVF SCH ×2 (09:00→20:50)
[2016-08-17] MEDS: LISINOPRIL 10 MG TAB PO SCH (09:00)
[2016-08-17] MEDS: SODIUM CHLORIDE 0.9% FLUSH 5 ML FLUSH FLUSH SCH ×2 (09:00→20:50)
[2016-08-17] MEDS: METOPROLOL TARTRATE 50 MG TAB PO SCH ×2 (09:06→20:50)
[2016-08-17] MEDS: ENOXAPARIN SODIUM 40 MG/0.4 ML SYRINGE SQ SCH (09:06)
[2016-08-17] MEDS: CHOLECALCIFEROL (VIT D3) 5000 UNIT CAP PO SCH (09:06)
[2016-08-17] MEDS: CALCIUM CARBONATE 500 MG CHEWABLE TAB CHEW SCH ×2 (09:07→20:50)
[2016-08-17] MEDS: ACETAMINOPHEN/HYDROcodone 325 MG/5 MG TAB PO PRN (09:09)
--- NOTE | 2016-08-17 10:19 | HHI.PR ---
Subjective Remarks Eating breakfast. Appear sin nad. No fevr or chills. Pain is controlled by meds. Objective Vitals Vital Signs Date Time Temp Pulse Resp B/P Pulse Ox O2 Delivery O2 Flow Rate FiO2 08/17/16 04:00 96.5 66 16 152/64 95 08/17/16 01:15 149/72 08/17/16 00:00 96.6 73 16 165/64 97 08/16/16 20:30 93 Room Air 08/16/16 20:30 83 08/16/16 20:00 97.6 68 16 165/74 93 08/16/16 16:00 97.0 80 18 114/70 96 08/16/16 12:00 97.2 79 18 107/63 96 I/O 08/16/16 08/16/16 08/16/16 08/17/16 08/17/16 08/17/16 07:00 15:00 23:00 07:00 15:00 23:00 Intake Total 600 ml 240 ml 120 ml Balance 600 ml 240 ml 120 ml Intake Oral 600 ml 240 ml 120 ml # Voids 6 1 1 # Bowel Movements 1 0 0 Result Diagram: 08/17/16 0512 08/17/16 0512 Imaging Last Impressions Hip and Pelvis X-Ray 08/10/16 1028 Signed Impressions: Service Date/Time: Wednesday, August 10, 2016 11:17 - CONCLUSION: Status post right hip arthroplasty. The acetabular component appears vertically oriented with respect to the adjacent pelvis. The femoral component is covered. Heather Pan MD Head CT 08/09/16 0600 Signed Impressions: Service Date/Time: July 05:22 - CONCLUSION: Stable minimal subarachnoid hemorrhage right parietal convexity. Yon Bailey MD Pelvis X-Ray 08/08/16 0000 Signed Impressions: Service Date/Time: Monday, August 08, 2016 20:34 - CONCLUSION: 1. Right femoral neck fracture with superior migration of the distal shaft. Yon Bailey MD Finger X-Ray 08/08/16 0000 Signed Impressions: Service Date/Time: Monday, August 08, 2016 14:37 - CONCLUSION: 1. No acute fracture or dislocation. 2. 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 3. Diffuse osteopenia. Mustapha Riddle MD Femur X-Ray 08/08/16 0000 Signed Impressions: Service Date/Time: Monday, August 08, 2016 20:35 - CONCLUSION: No acute fracture. Yon Bailey MD Chest X-Ray 08/08/16 0000 Signed Impressions: Service Date/Time: Monday, August 08, 2016 20:35 - CONCLUSION: Scattered interstitial densities likely chronic interstitial lung disease although acute component cannot be excluded given lack of prior studies. Yon Bailey MD Objective Remarks Gen: Awake, alert elderly woman Head: Normal. Neck: Supple, airway widely patent. No obstruction to breathing. Lungs: Clear, no wheezes or crackles. Comfortable respiratory pattern. Heart: NL S1S2, RRR. No JVD. Abdomen: Soft, nondistended. No tenderness. BS active. Extremities: Tender right hip. Warm, and well perfused feet and hands. Neuro: EOMs, pupils normal. Moves feet and fingers to command. Very slow response time to questions. Procedures Displaced right femoral neck fracture s/p Right Hip Bipolar Hemiarthroplasty by Dr Peters A/P Problem List: (1) Fracture of femoral neck, right, closed ICD Code: S72.001A Status: Acute (2) Traumatic subarachnoid hemorrhage ICD Code: S06.6X9A Status: Acute (3) Dislocation of finger, interphalangeal joint, right, closed ICD Code: S63.279A Status: Acute (4) Skin tear of elbow without complication ICD Code: S51.019A Status: Acute (5) Dementia ICD Code: F03.90 Status: Acute Assessment and Plan 1. Small traumatic SAH, no cerebral contusion or mass effect. Stable per repeat imaging 2 Displaced right femoral neck fracture s/p Right hip bipolar arthroplasty 08/[address] Peters 3. Dislocation finger right hand. 4. Skin avulsion right arm, partial thickness. 5. Hypokalemia Bed rest. Ortho bowel regimen. Pepcid. Serial neurological exams. Hold chemical DVT Px due to SAH. Ortho consult, plan foe right hemiarthoplasty by Dr Peters 08/09/16 Pain meds per pain scale Monitor and replace electrolytes. ICU electrolyte protocol. Dementia will consult psychiatry for recommendations A Fib. Check EKG. Will start metoprolol 25 mg po bid. Overall impression: Multiple injuries from fall earlier today. Stable hemodynamic and respiratory function. Will require ORIF right hip and early mobilization. SAH is minimal and unlikely to cause any problems. Reasonable candidate for hip surgery. Discussed with the patient, nurse, daughter. Discussed with the CM regarding DC plan. Patient is off restraints with sitter at bedside. OFF restraints, will have fall precautions. DC IV line as no need for any IV meds. Also patient to receive some pain meds prn if BP and HR are elevated because she is not able to tell when she has pain. Discussed with the nurse. BP is better controlled increased metoprolol to 50 mg po bid Off restraints and sitter x 3 days . Plan to DC to SNF. CM following for DC plan. Problem Qualifiers (1) Traumatic subarachnoid hemorrhage: Qualified Code: S06.6X9A - Traumatic subarachnoid hemorrhage, with loss of consciousness of unspecified duration, initial encounter (2) Dislocation of finger, interphalangeal joint, right, closed: Qualified Code: S63.279A - Dislocation of finger, interphalangeal joint, right , closed, initial encounter (3) Skin tear of elbow without complication: Qualified Code: S51.011A - Skin tear of elbow without complication, right, initial encounter (4) Dementia: Qualified Code: F03.90 - Dementia without behavioral disturbance, unspecified dementia type Mary Gomez MD Aug 17, 2016 10:18
[2016-08-17] MEDS: ESCITALOPRAM OXALATE 10 MG TAB PO SCH (20:50)
[2016-08-18] VITALS: BP 147/67; PULSE 64; RESP 18; TEMP 97.4; O2SAT 96
[2016-08-18 04:00] VITALS: BP 145/92; PULSE 74; RESP 18; TEMP 97.4; O2SAT 92
[2016-08-18 08:00] VITALS: BP 136/62; PULSE 63; RESP 16; TEMP 97; O2SAT 98
[2016-08-18] MEDS: CALCIUM CARBONATE 500 MG CHEWABLE TAB CHEW SCH ×2 (08:33→19:58)
[2016-08-18] MEDS: CHOLECALCIFEROL (VIT D3) 5000 UNIT CAP PO SCH (08:34)
[2016-08-18] MEDS: METOPROLOL TARTRATE 50 MG TAB PO SCH ×2 (08:34→19:57)
[2016-08-18] MEDS: SODIUM CHLORIDE 0.9% FLUSH 5 ML FLUSH FLUSH SCH ×2 (08:34→19:56)
[2016-08-18] MEDS: LISINOPRIL 10 MG TAB PO SCH (08:34)
[2016-08-18] MEDS: SODIUM CHLORIDE 0.9% FLUSH 5 ML FLUSH IVF SCH ×2 (08:34→19:58)
[2016-08-18] MEDS: ENOXAPARIN SODIUM 40 MG/0.4 ML SYRINGE SQ SCH (11:04)
[2016-08-18] MEDS: ACETAMINOPHEN/HYDROcodone 325 MG/5 MG TAB PO PRN ×2 (11:04→18:19)
--- NOTE | 2016-08-18 11:57 | HHI.PR ---
Subjective Remarks In the chair, appears in nad. No n/v/d/c. Pain is controlled by meds. Pleasantly confused, dementia at baseline. Objective Vitals Vital Signs Date Time Temp Pulse Resp B/P Pulse Ox O2 Delivery O2 Flow Rate FiO2 08/18/16 08:00 97.0 63 16 136/62 98 08/18/16 04:00 97.4 74 18 145/92 92 08/18/16 00:00 97.4 64 18 147/67 96 08/17/16 20:40 67 130/58 08/17/16 20:30 97 Room Air 08/17/16 20:30 77 08/17/16 19:13 96.6 77 24 175/75 97 08/17/16 13:52 70 08/17/16 12:00 96.4 96 16 96/70 96 I/O 08/17/16 08/17/16 08/17/16 08/18/16 08/18/16 08/18/16 07:00 15:00 23:00 07:00 15:00 23:00 Intake Total 120 ml 480 ml 240 ml 120 ml Balance 120 ml 480 ml 240 ml 120 ml Intake Oral 120 ml 480 ml 240 ml 120 ml # Voids 1 3 1 1 # Bowel Movements 0 0 1 0 Result Diagram: 08/17/16 0512 08/17/16 0512 Imaging Last Impressions Hip and Pelvis X-Ray 08/10/16 1028 Signed Impressions: Service Date/Time: Wednesday, August 10, 2016 11:17 - CONCLUSION: Status post right hip arthroplasty. The acetabular component appears vertically oriented with respect to the adjacent pelvis. The femoral component is covered. Heather Pan MD Head CT 08/09/16 0600 Signed Impressions: Service Date/Time: July 05:22 - CONCLUSION: Stable minimal subarachnoid hemorrhage right parietal convexity. Yon Bailey MD Pelvis X-Ray 08/08/16 0000 Signed Impressions: Service Date/Time: Monday, August 08, 2016 20:34 - CONCLUSION: 1. Right femoral neck fracture with superior migration of the distal shaft. Yon Bailey MD Finger X-Ray 08/08/16 0000 Signed Impressions: Service Date/Time: Monday, August 08, 2016 14:37 - CONCLUSION: 1. No acute fracture or dislocation. 2. 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 3. Diffuse osteopenia. Mustapha Riddle MD Femur X-Ray 08/08/16 0000 Signed Impressions: Service Date/Time: Monday, August 08, 2016 20:35 - CONCLUSION: No acute fracture. Yon Bailey MD Chest X-Ray 08/08/16 0000 Signed Impressions: Service Date/Time: Monday, August 08, 2016 20:35 - CONCLUSION: Scattered interstitial densities likely chronic interstitial lung disease although acute component cannot be excluded given lack of prior studies. Yon Bailey MD Objective Remarks Gen: Awake, alert elderly woman Head: Normal. Neck: Supple, airway widely patent. No obstruction to breathing. Lungs: Clear, no wheezes or crackles. Comfortable respiratory pattern. Heart: NL S1S2, RRR. No JVD. Abdomen: Soft, nondistended. No tenderness. BS active. Extremities: Tender right hip. Warm, and well perfused feet and hands. Neuro: EOMs, pupils normal. Moves feet and fingers to command. Very slow response time to questions. Procedures Displaced right femoral neck fracture s/p Right Hip Bipolar Hemiarthroplasty by Dr Peters A/P Problem List: (1) Fracture of femoral neck, right, closed ICD Code: S72.001A Status: Acute (2) Traumatic subarachnoid hemorrhage ICD Code: S06.6X9A Status: Acute (3) Dislocation of finger, interphalangeal joint, right, closed ICD Code: S63.279A Status: Acute (4) Skin tear of elbow without complication ICD Code: S51.019A Status: Acute (5) Dementia ICD Code: F03.90 Status: Acute Assessment and Plan 1. Small traumatic SAH, no cerebral contusion or mass effect. Stable per repeat imaging 2 Displaced right femoral neck fracture s/p Right hip bipolar arthroplasty 08/[address] Peters 3. Dislocation finger right hand. 4. Skin avulsion right arm, partial thickness. 5. Hypokalemia Bed rest. Ortho bowel regimen. Pepcid. Serial neurological exams. Hold chemical DVT Px due to SAH. Ortho consult, plan foe right hemiarthoplasty by Dr Peters 08/09/16 Pain meds per pain scale Monitor and replace electrolytes. ICU electrolyte protocol. Dementia will consult psychiatry for recommendations A Fib. Check EKG. Will start metoprolol 25 mg po bid. Overall impression: Multiple injuries from fall earlier today. Stable hemodynamic and respiratory function. Will require ORIF right hip and early mobilization. SAH is minimal and unlikely to cause any problems. Reasonable candidate for hip surgery. Discussed with the patient, nurse, daughter. Discussed with the CM regarding DC plan. Patient is off restraints with sitter at bedside. OFF restraints, will have fall precautions. DC IV line as no need for any IV meds. Also patient to receive some pain meds prn if BP and HR are elevated because she is not able to tell when she has pain. Discussed with the nurse. BP is better controlled increased metoprolol to 50 mg po bid Plan to DC to SNF. CM following for DC plan. Problem Qualifiers (1) Traumatic subarachnoid hemorrhage: Qualified Code: S06.6X9A - Traumatic subarachnoid hemorrhage, with loss of consciousness of unspecified duration, initial encounter (2) Dislocation of finger, interphalangeal joint, right, closed: Qualified Code: S63.279A - Dislocation of finger, interphalangeal joint, right , closed, initial encounter (3) Skin tear of elbow without complication: Qualified Code: S51.011A - Skin tear of elbow without complication, right, initial encounter (4) Dementia: Qualified Code: F03.90 - Dementia without behavioral disturbance, unspecified dementia type Mary Gomez MD Aug 18, 2016 11:57
[2016-08-18 12:00] VITALS: BP 131/58; PULSE 63; RESP 16; TEMP 97; O2SAT 98
[2016-08-18 16:00] VITALS: BP 169/92; PULSE 70; RESP 16; TEMP 97.8; O2SAT 94
[2016-08-18] MEDS: ESCITALOPRAM OXALATE 10 MG TAB PO SCH (19:57)
[2016-08-18 20:00] VITALS: BP 142/65; PULSE 76; RESP 20; TEMP 97.4; O2SAT 97
[2016-08-19] VITALS: BP 140/64; PULSE 68; RESP 22; TEMP 96.7; O2SAT 94
[2016-08-19] MEDS: ACETAMINOPHEN/HYDROcodone 325 MG/5 MG TAB PO PRN ×3 (00:37→15:31)
[2016-08-19 03:48] VITALS: BP 162/70; PULSE 62; RESP 20; TEMP 96.3; O2SAT 95
[2016-08-19 08:00] VITALS: BP 132/62; PULSE 78; RESP 16; TEMP 97; O2SAT 94
[2016-08-19] MEDS: SODIUM CHLORIDE 0.9% FLUSH 5 ML FLUSH FLUSH SCH ×2 (09:00→20:12)
[2016-08-19] MEDS: SODIUM CHLORIDE 0.9% FLUSH 5 ML FLUSH IVF SCH ×2 (09:00→20:11)
[2016-08-19] MEDS: ENOXAPARIN SODIUM 40 MG/0.4 ML SYRINGE SQ SCH (09:28)
[2016-08-19] MEDS: LISINOPRIL 10 MG TAB PO SCH (09:28)
[2016-08-19] MEDS: METOPROLOL TARTRATE 50 MG TAB PO SCH ×2 (09:28→20:12)
[2016-08-19] MEDS: CHOLECALCIFEROL (VIT D3) 5000 UNIT CAP PO SCH (09:29)
[2016-08-19] MEDS: MAGNESIUM HYDROXIDE SUSP 30 ML CUP PO PRN (09:29)
[2016-08-19] MEDS: CALCIUM CARBONATE 500 MG CHEWABLE TAB CHEW SCH ×2 (09:29→20:12)
--- NOTE | 2016-08-19 10:24 | HHI.PR ---
Subjective Remarks Blood pressure is better controlled. No n/v/d/c. Appears in nad. Objective Vitals Vital Signs Date Time Temp Pulse Resp B/P Pulse Ox O2 Delivery O2 Flow Rate FiO2 08/19/16 03:48 96.3 62 20 162/70 95 08/19/16 00:00 96.7 68 22 140/64 94 08/18/16 20:00 97.4 76 20 142/65 97 08/18/16 16:00 97.8 70 16 169/92 94 08/18/16 12:00 97.0 63 16 131/58 98 I/O 08/18/16 08/18/16 08/18/16 08/19/16 08/19/16 08/19/16 07:00 15:00 23:00 07:00 15:00 23:00 Intake Total 120 ml 480 ml 240 ml 240 ml Balance 120 ml 480 ml 240 ml 240 ml Intake Oral 120 ml 480 ml 240 ml 240 ml # Voids 1 3 2 2 # Bowel Movements 0 0 0 0 Result Diagram: 08/17/1651108/17/16511 Objective Remarks Gen: Awake, alert elderly woman Head: Normal. Neck: Supple, airway widely patent. No obstruction to breathing. Lungs: Clear, no wheezes or crackles. Comfortable respiratory pattern. Heart: NL S1S2, RRR. No JVD. Abdomen: Soft, nondistended. No tenderness. BS active. Extremities: Tender right hip. Warm, and well perfused feet and hands. Neuro: EOMs, pupils normal. Moves feet and fingers to command. Very slow response time to questions. Procedures Displaced right femoral neck fracture s/p Right Hip Bipolar Hemiarthroplasty by Dr Peters A/P Problem List: (1) Fracture of femoral neck, right, closed ICD Code: S72.001A Status: Acute (2) Traumatic subarachnoid hemorrhage ICD Code: S06.6X9A Status: Acute (3) Dislocation of finger, interphalangeal joint, right, closed ICD Code: S63.279A Status: Acute (4) Skin tear of elbow without complication ICD Code: S51.019A Status: Acute (5) Dementia ICD Code: F03.90 Status: Acute Assessment and Plan 1. Small traumatic SAH, no cerebral contusion or mass effect. Stable per repeat imaging 2 Displaced right femoral neck fracture s/p Right hip bipolar arthroplasty 08/[address] Peters 3. Dislocation finger right hand. 4. Skin avulsion right arm, partial thickness. 5. Hypokalemia Bed rest. Ortho bowel regimen. Pepcid. Serial neurological exams. Hold chemical DVT Px due to SAH. Ortho consult, plan foe right hemiarthoplasty by Dr Peters 08/09/16 Pain meds per pain scale Monitor and replace electrolytes. ICU electrolyte protocol. Dementia will consult psychiatry for recommendations A Fib. Check EKG. Will start metoprolol 25 mg po bid. Overall impression: Multiple injuries from fall earlier today. Stable hemodynamic and respiratory function. Will require ORIF right hip and early mobilization. SAH is minimal and unlikely to cause any problems. Reasonable candidate for hip surgery. Discussed with the patient, nurse, daughter. Discussed with the CM regarding DC plan. Patient is off restraints with sitter at bedside. OFF restraints, will have fall precautions. DC IV line as no need for any IV meds. Also patient to receive some pain meds prn if BP and HR are elevated because she is not able to tell when she has pain. Discussed with the nurse. BP is better controlled increased metoprolol to 50 mg po bid Plan to DC to SNF. CM following for DC plan. Problem Qualifiers (1) Traumatic subarachnoid hemorrhage: Qualified Code: S06.6X9A - Traumatic subarachnoid hemorrhage, with loss of consciousness of unspecified duration, initial encounter (2) Dislocation of finger, interphalangeal joint, right, closed: Qualified Code: S63.279A - Dislocation of finger, interphalangeal joint, right , closed, initial encounter (3) Skin tear of elbow without complication: Qualified Code: S51.011A - Skin tear of elbow without complication, right, initial encounter (4) Dementia: Qualified Code: F03.90 - Dementia without behavioral disturbance, unspecified dementia type Mary Gomez MD Aug 19, 2016 10:24
[2016-08-19 12:00] VITALS: BP 141/68; PULSE 73; RESP 16; TEMP 96; O2SAT 99
[2016-08-19 16:00] VITALS: BP 146/67; PULSE 73; RESP 16; TEMP 97; O2SAT 95
[2016-08-19 20:00] VITALS: BP 156/69; PULSE 76; RESP 17; TEMP 96.3; O2SAT 95
[2016-08-19] MEDS: ESCITALOPRAM OXALATE 10 MG TAB PO SCH (20:12)
[2016-08-20] VITALS (8 sets, daily range): BP systolic 114–176; BP diastolic 50–75; PULSE 59–73; RESP 16–18; TEMP 96–98.7; O2SAT 94–98
[2016-08-20] MEDS: ACETAMINOPHEN/HYDROcodone 325 MG/5 MG TAB PO PRN (04:49)
[2016-08-20] MEDS: cloNIDine HCL 0.1 MG TAB PO PRN (04:49)
[2016-08-20] MEDS: SODIUM CHLORIDE 0.9% FLUSH 5 ML FLUSH FLUSH SCH ×2 (09:00→21:00)
[2016-08-20] MEDS: SODIUM CHLORIDE 0.9% FLUSH 5 ML FLUSH IVF SCH ×2 (09:00→21:00)
[2016-08-20] MEDS: LISINOPRIL 10 MG TAB PO SCH (09:00)
[2016-08-20] MEDS: CALCIUM CARBONATE 500 MG CHEWABLE TAB CHEW SCH ×2 (09:48→22:05)
[2016-08-20] MEDS: ENOXAPARIN SODIUM 40 MG/0.4 ML SYRINGE SQ SCH (09:48)
[2016-08-20] MEDS: METOPROLOL TARTRATE 50 MG TAB PO SCH ×2 (09:49→22:05)
[2016-08-20] MEDS: CHOLECALCIFEROL (VIT D3) 5000 UNIT CAP PO SCH (09:49)
--- NOTE | 2016-08-20 11:17 | HHI.PR ---
Subjective Remarks Patient in bed. Denies having any pain. No n/v/d/c. No fever or chills. Pleasantly confused. Objective Vitals Vital Signs Date Time Temp Pulse Resp B/P Pulse Ox O2 Delivery O2 Flow Rate FiO2 08/20/16 08:00 98.0 59 18 118/50 95 08/20/16 07:13 Room Air 08/20/16 04:00 97.2 68 17 176/75 98 08/20/16 00:00 98.1 66 17 143/68 98 08/19/16 20:00 96.3 76 17 156/69 95 08/19/16 16:00 97.0 73 16 146/67 95 08/19/16 12:00 96.0 73 16 141/68 99 I/O 08/19/16 08/19/16 08/19/16 08/20/16 08/20/16 08/20/16 07:00 15:00 23:00 07:00 15:00 23:00 Intake Total 240 ml 480 ml 120 ml 120 ml Balance 240 ml 480 ml 120 ml 120 ml Intake Oral 240 ml 480 ml 120 ml 120 ml # Voids 2 3 2 2 # Bowel Movements 0 1 0 0 Result Diagram: 08/17/1651108/17/16511 Objective Remarks Gen: Awake, alert elderly woman Head: Normal. Neck: Supple, airway widely patent. No obstruction to breathing. Lungs: Clear, no wheezes or crackles. Comfortable respiratory pattern. Heart: NL S1S2, RRR. No JVD. Abdomen: Soft, nondistended. No tenderness. BS active. Extremities: Tender right hip. Warm, and well perfused feet and hands. Neuro: EOMs, pupils normal. Moves feet and fingers to command. Very slow response time to questions. Procedures Displaced right femoral neck fracture s/p Right Hip Bipolar Hemiarthroplasty by Dr Petesr A/P Problem List: (1) Fracture of femoral neck, right, closed ICD Code: S72.001A Status: Acute (2) Traumatic subarachnoid hemorrhage ICD Code: S06.6X9A Status: Acute (3) Dislocation of finger, interphalangeal joint, right, closed ICD Code: S63.279A Status: Acute (4) Skin tear of elbow without complication ICD Code: S51.019A Status: Acute (5) Dementia ICD Code: F03.90 Status: Acute Assessment and Plan 1. Small traumatic SAH, no cerebral contusion or mass effect. Stable per repeat imaging 2 Displaced right femoral neck fracture s/p Right hip bipolar arthroplasty 08/[address] Peters 3. Dislocation finger right hand. 4. Skin avulsion right arm, partial thickness. 5. Hypokalemia Bed rest. Ortho bowel regimen. Pepcid. Serial neurological exams. Hold chemical DVT Px due to SAH. Ortho consult, plan foe right hemiarthoplasty by Dr Peters 08/09/16 Pain meds per pain scale Monitor and replace electrolytes. ICU electrolyte protocol. Dementia will consult psychiatry for recommendations A Fib. Check EKG. Will start metoprolol 25 mg po bid. Overall impression: Multiple injuries from fall earlier today. Stable hemodynamic and respiratory function. Will require ORIF right hip and early mobilization. SAH is minimal and unlikely to cause any problems. Reasonable candidate for hip surgery. Discussed with the patient, nurse, daughter. Discussed with the CM regarding DC plan. Patient is off restraints with sitter at bedside. OFF restraints, will have fall precautions. DC IV line as no need for any IV meds. Also patient to receive some pain meds prn if BP and HR are elevated because she is not able to tell when she has pain. Discussed with the nurse. BP is better controlled increased metoprolol to 50 mg po bid Plan to DC to SNF. CM following for DC plan. Problem Qualifiers (1) Traumatic subarachnoid hemorrhage: Qualified Code: S06.6X9A - Traumatic subarachnoid hemorrhage, with loss of consciousness of unspecified duration, initial encounter (2) Dislocation of finger, interphalangeal joint, right, closed: Qualified Code: S63.279A - Dislocation of finger, interphalangeal joint, right , closed, initial encounter (3) Skin tear of elbow without complication: Qualified Code: S51.011A - Skin tear of elbow without complication, right, initial encounter (4) Dementia: Qualified Code: F03.90 - Dementia without behavioral disturbance, unspecified dementia type Mary Gomez MD Aug 20, 2016 11:17
[2016-08-20] MEDS: ESCITALOPRAM OXALATE 10 MG TAB PO SCH (22:05)
[2016-08-21] VITALS (8 sets, daily range): BP systolic 94–184; BP diastolic 52–76; PULSE 57–73; RESP 16–18; TEMP 96–97.4; O2SAT 95–99
[2016-08-21] MEDS: ENOXAPARIN SODIUM 40 MG/0.4 ML SYRINGE SQ SCH (08:16)
[2016-08-21] MEDS: CALCIUM CARBONATE 500 MG CHEWABLE TAB CHEW SCH ×2 (08:16→21:13)
[2016-08-21] MEDS: CHOLECALCIFEROL (VIT D3) 5000 UNIT CAP PO SCH (08:16)
[2016-08-21] MEDS: LISINOPRIL 10 MG TAB PO SCH (08:16)
[2016-08-21] MEDS: METOPROLOL TARTRATE 50 MG TAB PO SCH ×2 (08:17→21:13)
[2016-08-21] MEDS: MAGNESIUM HYDROXIDE SUSP 30 ML CUP PO PRN (08:17)
[2016-08-21] MEDS: SODIUM CHLORIDE 0.9% FLUSH 5 ML FLUSH FLUSH SCH ×2 (08:17→08:20)
[2016-08-21] MEDS: SODIUM CHLORIDE 0.9% FLUSH 5 ML FLUSH IVF SCH ×2 (08:20→21:00)
--- NOTE | 2016-08-21 12:33 | HHI.PR ---
Subjective Remarks In the chair having lunch. Daughter at bedside. Patient sys she is feeling well. Pleasantly confused and needs frequent re-orientation. No n/v/d/c. Objective Vitals Vital Signs Date Time Temp Pulse Resp B/P Pulse Ox O2 Delivery O2 Flow Rate FiO2 08/21/16 08:30 Room Air 08/21/16 08:00 96.5 68 18 132/70 99 08/21/16 04:28 96.0 65 16 160/72 96 08/21/16 04:00 Room Air 08/21/16 00:02 96.3 66 17 156/65 96 08/21/16 00:00 Room Air 08/20/16 22:04 73 08/20/16 22:04 73 08/20/16 20:14 96.0 73 16 118/67 94 08/20/16 20:00 Room Air 08/20/16 18:00 72 08/20/16 16:00 98.7 64 18 114/65 96 I/O 08/20/16 08/20/16 08/20/16 08/21/16 08/21/16 08/21/16 07:00 15:00 23:00 07:00 15:00 23:00 Intake Total 120 ml 360 ml 240 ml 240 ml Balance 120 ml 360 ml 240 ml 240 ml Intake Oral 120 ml 360 ml 240 ml 240 ml # Voids 2 1 1 2 # Bowel Movements 0 0 0 0 Result Diagram: 08/17/16 0512 08/17/16 0512 Imaging Last Impressions Hip and Pelvis X-Ray 08/10/16 1028 Signed Impressions: Service Date/Time: Wednesday, August 10, 2016 11:17 - CONCLUSION: Status post right hip arthroplasty. The acetabular component appears vertically oriented with respect to the adjacent pelvis. The femoral component is covered. Heather Pan MD Head CT 08/09/16 0600 Signed Impressions: Service Date/Time: July 05:22 - CONCLUSION: Stable minimal subarachnoid hemorrhage right parietal convexity. Yon Bailey MD Pelvis X-Ray 08/08/16 0000 Signed Impressions: Service Date/Time: Monday, August 08, 2016 20:34 - CONCLUSION: 1. Right femoral neck fracture with superior migration of the distal shaft. Yon Bailey MD Finger X-Ray 08/08/16 0000 Signed Impressions: Service Date/Time: Monday, August 08, 2016 14:37 - CONCLUSION: 1. No acute fracture or dislocation. 2. 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 3. Diffuse osteopenia. Mustapha Riddle MD Femur X-Ray 08/08/16 0000 Signed Impressions: Service Date/Time: Monday, August 08, 2016 20:35 - CONCLUSION: No acute fracture. Yon Bailey MD Chest X-Ray 08/08/16 0000 Signed Impressions: Service Date/Time: Monday, August 08, 2016 20:35 - CONCLUSION: Scattered interstitial densities likely chronic interstitial lung disease although acute component cannot be excluded given lack of prior studies. Yon Bailey MD Objective Remarks Gen: Awake, alert elderly woman Head: Normal. Neck: Supple, airway widely patent. No obstruction to breathing. Lungs: Clear, no wheezes or crackles. Comfortable respiratory pattern. Heart: NL S1S2, RRR. No JVD. Abdomen: Soft, nondistended. No tenderness. BS active. Extremities: Tender right hip. Warm, and well perfused feet and hands. Neuro: EOMs, pupils normal. Moves feet and fingers to command. Very slow response time to questions. Procedures Displaced right femoral neck fracture s/p Right Hip Bipolar Hemiarthroplasty by Dr Peters A/P Problem List: (1) Fracture of femoral neck, right, closed ICD Code: S72.001A Status: Acute (2) Traumatic subarachnoid hemorrhage ICD Code: S06.6X9A Status: Acute (3) Dislocation of finger, interphalangeal joint, right, closed ICD Code: S63.279A Status: Acute (4) Skin tear of elbow without complication ICD Code: S51.019A Status: Acute (5) Dementia ICD Code: F03.90 Status: Acute Assessment and Plan 1. Small traumatic SAH, no cerebral contusion or mass effect. Stable per repeat imaging 2 Displaced right femoral neck fracture s/p Right hip bipolar arthroplasty 08/[address] Peters 3. Dislocation finger right hand. 4. Skin avulsion right arm, partial thickness. 5. Hypokalemia Bed rest. Ortho bowel regimen. Pepcid. Serial neurological exams. Hold chemical DVT Px due to SAH. Ortho consult, plan foe right hemiarthoplasty by Dr Peters 08/09/16 Pain meds per pain scale Monitor and replace electrolytes. ICU electrolyte protocol. Dementia will consult psychiatry for recommendations A Fib. Check EKG. Will start metoprolol 25 mg po bid. Overall impression: Multiple injuries from fall earlier today. Stable hemodynamic and respiratory function. Will require ORIF right hip and early mobilization. SAH is minimal and unlikely to cause any problems. Reasonable candidate for hip surgery. Discussed with the patient, nurse, daughter. Discussed with the CM regarding DC plan. OFF restraints, will have fall precautions. DC IV line as no need for any IV meds. Also patient to receive some pain meds prn if BP and HR are elevated because she is not able to tell when she has pain. Discussed with the nurse. BP is better controlled increased metoprolol to 50 mg po bid Plan to DC to SNF. CM following for DC plan. Problem Qualifiers (1) Traumatic subarachnoid hemorrhage: Qualified Code: S06.6X9A - Traumatic subarachnoid hemorrhage, with loss of consciousness of unspecified duration, initial encounter (2) Dislocation of finger, interphalangeal joint, right, closed: Qualified Code: S63.279A - Dislocation of finger, interphalangeal joint, right , closed, initial encounter (3) Skin tear of elbow without complication: Qualified Code: S51.011A - Skin tear of elbow without complication, right, initial encounter (4) Dementia: Qualified Code: F03.90 - Dementia without behavioral disturbance, unspecified dementia type Mary Gomez MD Aug 21, 2016 12:33
[2016-08-21] MEDS: ESCITALOPRAM OXALATE 10 MG TAB PO SCH (21:13)
[2016-08-22] VITALS (7 sets, daily range): BP systolic 104–176; BP diastolic 58–76; PULSE 62–87; RESP 17–18; TEMP 96.3–98.1; O2SAT 94–98
[2016-08-22] MEDS: SODIUM CHLORIDE 0.9% FLUSH 5 ML FLUSH FLUSH SCH ×2 (09:00→21:00)
[2016-08-22] MEDS: SODIUM CHLORIDE 0.9% FLUSH 5 ML FLUSH IVF SCH ×2 (09:00→21:00)
[2016-08-22] MEDS: LISINOPRIL 10 MG TAB PO SCH (09:45)
[2016-08-22] MEDS: CHOLECALCIFEROL (VIT D3) 5000 UNIT CAP PO SCH (09:45)
[2016-08-22] MEDS: CALCIUM CARBONATE 500 MG CHEWABLE TAB CHEW SCH ×2 (09:45→21:42)
[2016-08-22] MEDS: METOPROLOL TARTRATE 50 MG TAB PO SCH ×2 (09:45→21:42)
[2016-08-22] MEDS: ENOXAPARIN SODIUM 40 MG/0.4 ML SYRINGE SQ SCH (11:35)
--- NOTE | 2016-08-22 13:29 | HHI.PR ---
Subjective Remarks Follow up for SAH, dementia, needs placement. The patient is awake, alert, oriented to self only. Answers "I don't know" to other orientation questions. She denies any medical complaints including no pain, chest pain, shortness of breath, abdominal pains, nausea/vomiting, diarrhea/constipation. Discussed with RN who is concerned the patient is just slightly more disoriented today, however still awake, alert, and follows commands. Her last BM was yesterday. Vital signs reviewed and stable. Objective Vitals Vital Signs Date Time Temp Pulse Resp B/P Pulse Ox O2 Delivery O2 Flow Rate FiO2 08/22/16 08:00 96.4 64 18 140/62 98 08/22/16 07:25 72 08/22/16 06:53 Room Air 08/22/16 04:32 96.4 62 17 130/62 95 08/22/16 00:35 96.5 65 17 176/72 94 154/76 08/21/16 20:07 97.2 73 16 184/76 95 08/21/16 20:00 73 08/21/16 16:00 96.4 73 18 140/66 96 I/O 08/21/16 08/21/16 08/21/16 08/22/16 08/22/16 08/22/16 07:00 15:00 23:00 07:00 15:00 23:00 Intake Total 240 ml 600 ml 360 ml 240 ml Balance 240 ml 600 ml 360 ml 240 ml Intake Oral 240 ml 600 ml 360 ml 240 ml # Voids 2 2 1 2 # Bowel Movements 0 1 0 0 Imaging Last Impressions Hip and Pelvis X-Ray 08/10/16 1028 Signed Impressions: Service Date/Time: Wednesday, August 10, 2016 11:17 - CONCLUSION: Status post right hip arthroplasty. The acetabular component appears vertically oriented with respect to the adjacent pelvis. The femoral component is covered. Heather Pan MD Head CT 08/09/16 0600 Signed Impressions: Service Date/Time: July 05:22 - CONCLUSION: Stable minimal subarachnoid hemorrhage right parietal convexity. Yon Bailey MD Pelvis X-Ray 08/08/16 0000 Signed Impressions: Service Date/Time: Monday, August 08, 2016 20:34 - CONCLUSION: 1. Right femoral neck fracture with superior migration of the distal shaft. Yon Bailey MD Finger X-Ray 08/08/16 0000 Signed Impressions: Service Date/Time: Monday, August 08, 2016 14:37 - CONCLUSION: 1. No acute fracture or dislocation. 2. 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 3. Diffuse osteopenia. Mustapha Riddle MD Femur X-Ray 08/08/16 0000 Signed Impressions: Service Date/Time: Monday, August 08, 2016 20:35 - CONCLUSION: No acute fracture. Yon Bailey MD Chest X-Ray 08/08/16 0000 Signed Impressions: Service Date/Time: Monday, August 08, 2016 20:35 - CONCLUSION: Scattered interstitial densities likely chronic interstitial lung disease although acute component cannot be excluded given lack of prior studies. Yon Bailey MD Objective Remarks GENERAL: Well-developed elderly female patient in [facility]. SKIN: Warm and dry. HEAD: Atraumatic. Normocephalic. EYES: Pupils equal and round. No scleral icterus. No injection or drainage. NECK: Trachea midline. CARDIOVASCULAR: Regular rate and rhythm. RESPIRATORY: No accessory muscle use. Clear to auscultation. Breath sounds equal bilaterally. GASTROINTESTINAL: Abdomen soft, non-tender, nondistended. Normoactive bowel sounds x4. MUSCULOSKELETAL: Extremities without clubbing, cyanosis, or edema. No obvious deformities. NEUROLOGICAL: Awake and alert, oriented to self only. No obvious cranial nerve deficits. Motor grossly within normal limits. Normal speech however slow response time to questions. PSYCHIATRIC: Appropriate mood and affect; insight and judgment limited. Procedures Displaced right femoral neck fracture s/p Right Hip Bipolar Hemiarthroplasty by Dr Peters Medications and IVs Current Medications Medications (Trade) Dose Ordered Sig/Malina Route Start Time Stop Time Status Last Admin (Catapres) 0.1 mg Q6H PRN PO 08/08/16 18:00 08/20/16 04:49 (Tylenol) 650 mg Q4H PRN PO 08/08/16 18:00 (Colace Liq) 100 mg BID PRN NG 08/08/16 18:00 08/19/16 09:29 (Milk Of Magnesia Liq) 30 ml DAILY PRN PO 08/08/16 18:00 08/21/16 08:17 (NS Flush) 2 ml UNSCH PRN FLUSH 08/08/16 18:30 (NS Flush) 2 ml BID FLUSH 08/08/16 21:00 08/19/16 20:12 (Zofran Inj) 4 mg Q6H PRN IVP 08/08/16 18:30 (Narcan Inj) 0.4 mg UNSCH PRN IV 08/08/16 18:30 (Pill Splitter) 1 ea UNSCH PRN OTHER 08/08/16 18:45 (Prinivil) 10 mg DAILY PO 08/09/16 09:00 08/22/16 09:45 (Ativan) 0.25 mg HS PRN PO 08/09/16 07:30 08/15/16 19:39 (Lexapro) 5 mg HS PO 08/09/16 21:00 08/21/16 21:13 (NS Flush) 2 ml UNSCH PRN IVF 08/10/16 10:30 (NS Flush) 2 ml BID IVF 08/10/16 21:00 08/16/16 11:15 (Custer 5-325 Mg) 1 tab Q4H PRN PO 08/10/16 10:30 08/20/16 04:49 (Custer 5-325 Mg) 2 tab Q4H PRN PO 08/10/16 10:30 08/13/16 09:23 (Morphine Inj) 3 mg Q3H PRN IV PUSH 08/10/16 10:30 08/11/16 00:28 (Vitamin D3) 5,000 units DAILY PO 08/11/16 09:00 08/22/16 09:45 (Lovenox Inj) 40 mg Q24H SQ 08/15/16 11:00 08/22/16 11:35 (Lopressor) 50 mg Q12HR PO 08/15/16 21:00 08/22/16 09:45 (Haldol Inj) 1 mg Q8H PRN IM 08/15/16 16:00 (Tums Chew) 500 mg Q12HR CHEW 08/16/16 13:00 08/22/16 09:45 Urinary Catheter: No A/P Problem List: (1) Fracture of femoral neck, right, closed ICD Code: S72.001A Status: Acute (2) Traumatic subarachnoid hemorrhage ICD Code: S06.6X9A Status: Acute (3) Dislocation of finger, interphalangeal joint, right, closed ICD Code: S63.279A Status: Acute (4) Skin tear of elbow without complication ICD Code: S51.019A Status: Acute (5) Dementia ICD Code: F03.90 Status: Acute Assessment and Plan 85-year-old female with: Small traumatic SAH, no cerebral contusion or mass effect. Stable per repeat imaging. Neuro checks. Needs rehab placement. Displaced right femoral neck fracture: s/p Right hip bipolar arthroplasty by Dr Peters. Orthopedics cleared for discharge. Continue PT. On lovenox for DVT prophylaxis. Needs rehab. Dislocation finger right hand. Skin avulsion right arm, partial thickness. Hypokalemia: Potassium 3.0. Given po KCl replacement. Repeat K 3.7. Dementia: with intermittent behavioral disturbance. Consult psychiatry, appreciate recommendations. Patient off restraints. Started on Lexapro. Hypertension: labile. Continue Lisinopril 10mg daily. Increased metoprolol to 50mg bid with good response. Continue to monitor BP, adjust antihypertensives as needed. A Fib: EKG showed sinus rhythm with occasional supraventricular premature complexes. Started on metoprolol 50 mg po bid. DVT Prophylaxis: Lovenox Plan to DC to SNF. CM following for DC plan. Discussed with Dr. Gomez. Problem Qualifiers (1) Traumatic subarachnoid hemorrhage: Qualified Code: S06.6X9A - Traumatic subarachnoid hemorrhage, with loss of consciousness of unspecified duration, initial encounter (2) Dislocation of finger, interphalangeal joint, right, closed: Qualified Code: S63.279A - Dislocation of finger, interphalangeal joint, right , closed, initial encounter (3) Skin tear of elbow without complication: Qualified Code: S51.011A - Skin tear of elbow without complication, right, initial encounter (4) Dementia: Qualified Code: F03.90 - Dementia without behavioral disturbance, unspecified dementia type Elida Nuñez PA-C Aug 22, 2016 13:29 Mary Gomez MD Aug 22, 2016 21:29
[2016-08-22] MEDS: ESCITALOPRAM OXALATE 10 MG TAB PO SCH (21:42)
[2016-08-22] MEDS: LORazepam 0.5 MG TAB PO PRN (21:45)
[2016-08-23] VITALS: BP 110/55; PULSE 57; RESP 18; TEMP 96.1; O2SAT 97
[2016-08-23 04:00] VITALS: BP 127/57; PULSE 63; RESP 18; TEMP 96.6; O2SAT 97
[2016-08-23 08:04] VITALS: BP 138/76; PULSE 64; RESP 16; TEMP 97.4; O2SAT 98
[2016-08-23] MEDS: SODIUM CHLORIDE 0.9% FLUSH 5 ML FLUSH FLUSH SCH ×2 (09:00→23:24)
[2016-08-23] MEDS: SODIUM CHLORIDE 0.9% FLUSH 5 ML FLUSH IVF SCH ×2 (09:00→23:24)
--- NOTE | 2016-08-23 09:26 | RADRPT ---
EXAM DATE/TIME: 08/23/2016 08:51 [facility] COMPARISON: FEMUR RIGHT (AP & LAT/2VWS), August 08, 2016, 20:38. HIP RIGHT (AP&LAT 2/3VWS) W AP PELVIS, August 10, 2016, 11:17. INDICATIONS : Evaluate right hip arthroplasty MEDICAL HISTORY : None. SURGICAL HISTORY : None. ENCOUNTER: Subsequent ACUITY: 2 weeks PAIN SCORE: Non-responsive. LOCATION: Right Hip FINDINGS: Multiple views of the right hip demonstrate interval total right hip arthroplasty for femoral neck fr acture. Good anatomic alignment. Osseous structures demonstrate normal mineralization. CONCLUSION: Status post total right hip arthroplasty for femoral neck fracture. Expected postsurgical changes.. Heather Pan MD on August 23, 2016 at 9:23 Board Certified Radiologist. This report was verified electronically.
[2016-08-23] MEDS: CALCIUM CARBONATE 500 MG CHEWABLE TAB CHEW SCH ×2 (10:20→23:22)
[2016-08-23] MEDS: METOPROLOL TARTRATE 50 MG TAB PO SCH ×2 (10:20→23:22)
[2016-08-23] MEDS: CHOLECALCIFEROL (VIT D3) 5000 UNIT CAP PO SCH (10:20)
[2016-08-23] MEDS: LISINOPRIL 10 MG TAB PO SCH (10:20)
[2016-08-23] MEDS: ENOXAPARIN SODIUM 40 MG/0.4 ML SYRINGE SQ SCH (12:15)
--- NOTE | 2016-08-23 12:23 | HHI.PR ---
Subjective Remarks Follow-up for SAH, femur fracture. The patient is seen with daughter at bedside. Patient's mentation is essentially at her baseline. They did notice that the patient's urine was much more cloudy today. The patient has a history of chronic and recurrent UTIs. The patient denies any leg pain, abdominal pain , urinary burning. She's been eating well. Normal BMs. They're anxious to leave the hospital. Objective Vitals Vital Signs Date Time Temp Pulse Resp B/P Pulse Ox O2 Delivery O2 Flow Rate FiO2 08/23/16 08:04 97.4 64 16 138/76 98 08/23/16 04:00 96.6 63 18 127/57 97 08/23/16 00:00 96.1 57 18 110/55 97 08/22/16 20:00 97.9 87 18 104/58 97 08/22/16 16:00 98.1 81 18 150/58 97 I/O 08/22/16 08/22/16 08/22/16 08/23/16 08/23/16 08/23/16 07:00 15:00 23:00 07:00 15:00 23:00 Intake Total 240 ml 120 ml 365 ml 60 ml Balance 240 ml 120 ml 365 ml 60 ml Intake Oral 240 ml 120 ml 365 ml 60 ml # Voids 2 3 1 1 # Bowel Movements 0 0 Imaging Last Impressions Hip and Pelvis X-Ray 08/23/16 0000 Signed Impressions: Service Date/Time: July 08:51 - CONCLUSION: Status post total right hip arthroplasty for femoral neck fracture. Expected postsurgical changes.. Heather Pan MD Head CT 08/09/16 0600 Signed Impressions: Service Date/Time: July 05:22 - CONCLUSION: Stable minimal subarachnoid hemorrhage right parietal convexity. Yon Bailey MD Pelvis X-Ray 08/08/16 0000 Signed Impressions: Service Date/Time: Monday, August 08, 2016 20:34 - CONCLUSION: 1. Right femoral neck fracture with superior migration of the distal shaft. Yon Bailey MD Finger X-Ray 08/08/16 0000 Signed Impressions: Service Date/Time: Monday, August 08, 2016 14:37 - CONCLUSION: 1. No acute fracture or dislocation. 2. 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 3. Diffuse osteopenia. Mustapha Riddle MD Femur X-Ray 08/08/16 0000 Signed Impressions: Service Date/Time: Monday, August 08, 2016 20:35 - CONCLUSION: No acute fracture. Yon Bailey MD Chest X-Ray 08/08/16 0000 Signed Impressions: Service Date/Time: Monday, August 08, 2016 20:35 - CONCLUSION: Scattered interstitial densities likely chronic interstitial lung disease although acute component cannot be excluded given lack of prior studies. Yon Bailey MD Objective Remarks GENERAL: Well-developed well-nourished. In no acute distress. Hard of hearing. SKIN: Warm and dry. No lesions noted. HEENT: Normocephalic. Pupils equal and round. Mucous membranes pink and moist. CARDIOVASCULAR: Regular rate and rhythm. No murmur appreciated. RESPIRATORY: No accessory muscle use. Clear to auscultation. Breath sounds equal bilaterally. GASTROINTESTINAL: Abdomen soft, non-tender, nondistended. Bowel sounds x4. MUSCULOSKELETAL: No obvious deformities. No clubbing or cyanosis. No edema. NEUROLOGICAL: Awake and alert. No focal neurological deficits. Moves upper and lower extremities spontaneously. Normal speech. PSYCHIATRIC: Pleasantly confused mood and affect; insight and judgment limited Procedures Displaced right femoral neck fracture s/p Right Hip Bipolar Hemiarthroplasty by Dr Peters A/P Problem List: (1) Fracture of femoral neck, right, closed ICD Code: S72.001A Status: Acute (2) Traumatic subarachnoid hemorrhage ICD Code: S06.6X9A Status: Acute (3) Dislocation of finger, interphalangeal joint, right, closed ICD Code: S63.279A Status: Acute (4) Skin tear of elbow without complication ICD Code: S51.019A Status: Acute (5) Dementia ICD Code: F03.90 Status: Acute Assessment and Plan 85-year-old female with: Small traumatic SAH, no cerebral contusion or mass effect. Stable per repeat imaging. Neuro checks. Needs rehab placement. Displaced right femoral neck fracture: s/p Right hip bipolar arthroplasty by Dr Peters. Orthopedics cleared for discharge. Continue PT. On lovenox for DVT prophylaxis. Needs rehab. Dislocation finger right hand. Skin avulsion right arm, partial thickness. Hypokalemia: Potassium 3.0. Given po KCl replacement. Repeat K 3.7. Dementia: with intermittent behavioral disturbance. Consult psychiatry, appreciate recommendations. Patient off restraints. Started on Lexapro. Hypertension: labile. Continue Lisinopril 10mg daily. Increased metoprolol to 50mg bid with good response. Continue to monitor BP, adjust antihypertensives as needed. A Fib: EKG showed sinus rhythm with occasional supraventricular premature complexes. Started on metoprolol 50 mg po bid. Possibly UTI: Check UA. Previous urine culture 08/19 negative. Start antibiotics if needed. DVT Prophylaxis: Lovenox Plan to DC to SNF. CM following for DC plan. Problem Qualifiers (1) Traumatic subarachnoid hemorrhage: Qualified Code: S06.6X9A - Traumatic subarachnoid hemorrhage, with loss of consciousness of unspecified duration, initial encounter (2) Dislocation of finger, interphalangeal joint, right, closed: Qualified Code: S63.279A - Dislocation of finger, interphalangeal joint, right , closed, initial encounter (3) Skin tear of elbow without complication: Qualified Code: S51.011A - Skin tear of elbow without complication, right, initial encounter (4) Dementia: Qualified Code: F03.90 - Dementia without behavioral disturbance, unspecified dementia type Oskar Alonso Aug 23, 2016 12:23 Mary Gomez MD Aug 23, 2016 16:24
[2016-08-23 12:37] VITALS: BP 140/59; PULSE 54; RESP 16; TEMP 97.9; O2SAT 98
[2016-08-23 12:37] LABS: BACTERIA, URINE MANY /hpf; BLOOD, URINE MOD (NEG); COMMENT (UR) CULTURE INDICATED; CULTURE IF INDICATED CULTURE INDICATED; GLUCOSE,URINE NEG (NEG); KETONE, URINE NEG (NEG); MUCUS URINE MANY /lpf (OCC); NITRITE,URINE NEG (NEG); PH, URINE 5.5 (5.0-8.5); URINE COLOR YELLOW (YELLW/STRAW)
[2016-08-23 16:15] VITALS: BP 120/66; PULSE 54; RESP 16; TEMP 97.9; O2SAT 98
[2016-08-23] MEDS: NITROFURANTOIN MONOHYD MACROCR 100 MG CAP PO SCH (18:40)
[2016-08-23 20:00] VITALS: BP 125/49; PULSE 82; RESP 16; TEMP 96.6; O2SAT 96
[2016-08-23] MEDS: ESCITALOPRAM OXALATE 10 MG TAB PO SCH (23:23)
[2016-08-23] MEDS: LORazepam 0.5 MG TAB PO PRN (23:24)
[2016-08-24] VITALS: BP 154/69; PULSE 54; RESP 16; TEMP 96.4; O2SAT 96
[2016-08-24 06:00] VITALS: BP 160/68; PULSE 67; RESP 16; TEMP 96.3; O2SAT 96
[2016-08-24 08:00] VITALS: BP 147/77; PULSE 70; RESP 20; TEMP 95.6; O2SAT 97
[2016-08-24] MEDS: CHOLECALCIFEROL (VIT D3) 5000 UNIT CAP PO SCH (08:57)
[2016-08-24] MEDS: METOPROLOL TARTRATE 50 MG TAB PO SCH (08:57)
[2016-08-24] MEDS: LISINOPRIL 10 MG TAB PO SCH (08:57)
[2016-08-24] MEDS: CALCIUM CARBONATE 500 MG CHEWABLE TAB CHEW SCH (08:57)
[2016-08-24] MEDS: NITROFURANTOIN MONOHYD MACROCR 100 MG CAP PO SCH ×2 (08:57→17:55)
[2016-08-24] MEDS: SODIUM CHLORIDE 0.9% FLUSH 5 ML FLUSH FLUSH SCH (08:58)
[2016-08-24] MEDS: SODIUM CHLORIDE 0.9% FLUSH 5 ML FLUSH IVF SCH (08:58)
--- NOTE | 2016-08-24 11:24 | HHI.PR ---
Subjective Remarks Follow-up for SAH, fall, UTI. The patient remains pleasantly confused. She denies any pain or dysuria. She states she's been eating well. Having normal urine output and bowel movements. Objective Vitals Vital Signs Date Time Temp Pulse Resp B/P Pulse Ox O2 Delivery O2 Flow Rate FiO2 08/24/16 08:00 95.6 70 20 147/77 97 08/24/16 06:00 96.3 67 16 160/68 96 08/24/16 00:00 96.4 54 16 154/69 96 08/23/16 20:00 96.6 82 16 125/49 96 08/23/16 16:15 97.9 54 16 120/66 98 08/23/16 12:37 97.9 54 16 140/59 98 I/O 08/23/16 08/23/16 08/23/16 08/24/16 08/24/16 08/24/16 07:00 15:00 23:00 07:00 15:00 23:00 Intake Total 60 ml 780 ml 240 ml 240 ml Balance 60 ml 780 ml 240 ml 240 ml Intake Oral 60 ml 780 ml 240 ml 240 ml # Voids 1 7 3 2 # Bowel Movements 2 0 0 Objective Remarks GENERAL: Well-developed well-nourished. In no acute distress. Hard of hearing. SKIN: Warm and dry. No lesions noted. HEENT: Normocephalic. Pupils equal and round. Mucous membranes pink and moist. CARDIOVASCULAR: Irregular controlled rate and irregular rhythm. No murmur appreciated. RESPIRATORY: No accessory muscle use. Clear to auscultation. Breath sounds equal bilaterally. GASTROINTESTINAL: Abdomen soft, non-tender, nondistended. Bowel sounds x4. MUSCULOSKELETAL: Right knee in immobilizer. No clubbing or cyanosis. No edema. NEUROLOGICAL: Awake and alert. No focal neurological deficits. Moves upper and lower extremities spontaneously. Normal speech. PSYCHIATRIC: Pleasantly confused mood and affect; insight and judgment limited Procedures Displaced right femoral neck fracture s/p Right Hip Bipolar Hemiarthroplasty by Dr Peters A/P Problem List: (1) Fracture of femoral neck, right, closed ICD Code: S72.001A Status: Acute (2) Traumatic subarachnoid hemorrhage ICD Code: S06.6X9A Status: Acute (3) Dislocation of finger, interphalangeal joint, right, closed ICD Code: S63.279A Status: Acute (4) Skin tear of elbow without complication ICD Code: S51.019A Status: Acute (5) Dementia ICD Code: F03.90 Status: Acute Assessment and Plan 85-year-old female with: Small traumatic SAH, no cerebral contusion or mass effect. Neurosurgery on board. Stable per repeat imaging. Neuro checks. Needs rehab placement. Displaced right femoral neck fracture: s/p Right hip bipolar arthroplasty by Dr Peters. Orthopedics cleared for discharge. Continue PT. On lovenox for DVT prophylaxis. Needs rehab. S/P fall: With traumatic injuries as above. Other injuries include Dislocation finger right hand, reduced in the ED. Skin avulsion right arm, partial thickness, wound care. Fall precautions. Hypokalemia: Potassium 3.0. Given po KCl replacement. Repeat K 3.7. Dementia: with intermittent behavioral disturbance. Consult psychiatry, appreciate recommendations. Patient off restraints. Started on Lexapro. Hypertension: labile. Continue Lisinopril 10mg daily. Increased metoprolol to 50mg bid with good response. Continue to monitor BP, adjust antihypertensives as needed. A Fib: EKG showed sinus rhythm with occasional supraventricular premature complexes. Started on metoprolol 50 mg po bid. UTI: UA 08/23 with evidence of UTI. Started on Macrobid. Follow-up urine culture. DVT Prophylaxis: Lovenox Plan to DC to SNF when arranged. CM following for DC plan. Problem Qualifiers (1) Traumatic subarachnoid hemorrhage: Qualified Code: S06.6X9A - Traumatic subarachnoid hemorrhage, with loss of consciousness of unspecified duration, initial encounter (2) Dislocation of finger, interphalangeal joint, right, closed: Qualified Code: S63.279A - Dislocation of finger, interphalangeal joint, right , closed, initial encounter (3) Skin tear of elbow without complication: Qualified Code: S51.011A - Skin tear of elbow without complication, right, initial encounter (4) Dementia: Qualified Code: F03.90 - Dementia without behavioral disturbance, unspecified dementia type Oskar Alonso Aug 24, 2016 11:23 Mary Gomez MD Aug 24, 2016 17:13
[2016-08-24 12:00] VITALS: BP 103/45; PULSE 52; RESP 18; TEMP 95.4; O2SAT 98
[2016-08-24] MEDS: ENOXAPARIN SODIUM 40 MG/0.4 ML SYRINGE SQ SCH (12:30)
[2016-08-24] MEDS ORDERED: MACR100C2 PO (14:53)
[2016-08-24 16:00] VITALS: BP 128/53; PULSE 69; RESP 20; TEMP 95; O2SAT 99
== END 2016-08-24 19:25 | DRG 956 ==
LOC: NEDAMB 13:59 → NEDA 17:36 → N03B 22:34 → N06A 08-11 14:25
PROVIDERS: ADMIT Hospitalist; ATTEND Hospitalist
PROC: 0RSWXZZ Reposition Right Finger Phalangeal Joint, External Approach (ICD-10-PCS; 2016-08-08)
PROC: 0SRR0JA Replacement of Right Hip Joint, Femoral Surface with Synthetic Substitute, Uncemented, Open Approach (ICD-10-PCS; principal; 2016-08-10 09:13)
DX: S72.001A Fracture of unspecified part of neck of right femur, initial encounter for closed fracture (principal); S06.6X0A Traumatic subarachnoid hemorrhage without loss of consciousness, initial encounter; F03.91 Unspecified dementia, unspecified severity, with behavioral disturbance; N39.0 Urinary tract infection, site not specified; E87.1 Hypo-osmolality and hyponatremia; I15.9 Secondary hypertension, unspecified; S63.274A Dislocation of unspecified interphalangeal joint of right ring finger, initial encounter; S51.011A Laceration without foreign body of right elbow, initial encounter; Z91.81 History of falling; W01.0XXA Fall on same level from slipping, tripping and stumbling without subsequent striking against object, initial encounter; Y93.02 Activity, running; Y92.008 Other place in unspecified non-institutional (private) residence as the place of occurrence of the external cause; R29.6 Repeated falls; G47.00 Insomnia, unspecified; F41.9 Anxiety disorder, unspecified; M19.90 Unspecified osteoarthritis, unspecified site; M85.80 Other specified disorders of bone density and structure, unspecified site; S81.012A Laceration without foreign body, left knee, initial encounter; Z87.891 Personal history of nicotine dependence; S80.12XA Contusion of left lower leg, initial encounter; S70.211A Abrasion, right hip, initial encounter; S30.810A Abrasion of lower back and pelvis, initial encounter; I48.91 Unspecified atrial fibrillation; E87.6 Hypokalemia; Z78.1 Physical restraint status
CPT/HCPCS: 70450; 71010; 72170; 73140; 73502; 73552; 80048; 81001; 82306; 83735; 83930; 83935; 84100; 84155; 84300; 85025; 85610; 87077; 87086; 87186; 87641; 93005; 94640; C1776; J0131; J0690; J1580; J1650; J2270; J2370; J2405; J3010; J3370; J7030; J7050; J7613; L1830; P9612